=== PATIENT | female | born 1985 | race Caucasian/White ===

== ENCOUNTER 2017-02-27 12:26 | Emergency (ER) | payer MEDICAID ==
[~2017-02-27] VITALS: Ht 167.6 cm; Wt 49.9 kg
[~2017-02-27 12:26] MED LIST: ADVIL200 MG OR; ALBUTEROL2 PUFFS/17 IN; AMOXICILLIN 50500 MG PO; AMOXICOT500 MG PO; APAP/OXYCODONE1 TA1 PO; BENTYL10 M1 PO; BENTYL10 MG OR; CIPRO 500MG TA500 MG PO; CIPROFLOXACIN750 MG PO; CLINDAMYCIN HC300 MG PO; DIPROLENE AF0.05% TP; DOXYCYCLINE HY100 M1 PO; FIORICET 325 MG1 TAB PO; FLAGYL500 MG PO; FLEXERIL10 MG PO; FLEXERIL5 MG; GABAPENTIN 400400 M1 PO; HYDROCODONE 7.51 TAB PO; HYDROCODONE1 TABLET PO; HYDROXYZINE 25M25 MG PO; HYDROXYZINE PAM50 MG PO; IBU-8800 MG PO; IBU600 MG PO; IBUPROFEN800 MG PO; IMITREX100 MG PO; LEVAQUIN 750 M750 MG PO; LODINE200 MG PO; LORTAB 5/500 501 TAB PO; MACROBID 100MG100 MG PO; MOTRIN800 MG PO; NAPROSYN 500MG500 MG PO; NEURONTIN 300M300 MG PO; NORCO 325 MG-51 TAB PO; ONDANSETRON4 MG PO; PERCOCET 325 MG1 TA3 PO; PERCOCET 5/3251 EACH PO; PHENAZOPYRIDIN200 MG PO; PHENERGAN 25MG.25 M1 PO; PHENERGAN 25MG.25 MG PR; PREDNISONE 10MG10 MG PO; PREDNISONE 20MG20 MG PO; PREMARIN 0.60.625 MG PO; PREMARIN1.25 MG PO; PROPRANOLOL HCL20 MG PO; PYRIDIUM 200MG200 MG PO; REMERON15 MG PO; ROBAXIN 500 MG500 MG PO; ROBAXIN-750750 MG PO; ROXICET 325 MG-1 TAB PO; SEASONALE 30 MC1 TAB PO; SEASONIQUE1 TAB PO; SEROQUEL 100MG100 MG PO; SEROQUEL 25MG T25 MG PO; TAMIFLU75 MG PO; TRAMADOL 50MG T50 MG PO; ULTRAM 50 MG TA50 MG PO; ULTRAM50 MG PO; VICODIN 5/6 EACH/PAK PO; VICODIN 7.5/501 EACH PO; VOLTAREN75 MG PO; WELLBUTRIN 100100 M1 PO; XANAX 1MG TABLET1 MG PO; XANAX2 MG PO; ZITHROMAX Z-PA250 M1 PO; ZOFRAN 8MG TABLE8 MG PO; ZOFRAN ODT4 MG PO; ZOLOFT100 MG PO; [UNRECOGNIZED DRUG - OTHER]; [UNRECOGNIZED DRUG - OTHER] PO
--- OUTSIDE RECORDS SUMMARY | 2017-02-27 12:37 | External Medical Summary Rpt ---
Author Author , Organization [employer] Address Unknown Phone Unavailable Care Team Providers Care Process Artist Name Role Phone [facility] Unavailable Unavailable [place] [facility] [place] Yamile Sanabria MD, Unavailable Unavailable Yamile Pacheco MD, Venkat Unavailable Unavailable Dary Dickens MD, Unavailable Unavailable Shola Fraga MD, Unavailable Unavailable Camilla Fraga MD [facility] # Unavailable Unavailable [id number], [facility] # [id number] Purpose Continuity of Care Document - 11-17-2009 through 2016 Problems Code Diagnosis DOS Provider Status 300.00 300.00 03-27-2013 [place] ANXIETY [facility] STATE NOS [facility] 305.1 305.1 03-27-2013 [place] TOBACCO USE [facility] DISORDER Hospital 401.9 401.9 03-27-2013 [place] HYPERTENSIO [facility] N NOS [facility] 590.80 590.80 03-27-2013 [place] PYELONEPHRI [facility] Hospital V12.04 V12.04 03-27-2013 [facility] METHICILLIN RESISTANT STAPHYLOCOC CUS AUREUS V12.79 V12.79 03-27-2013 [place] PERSONAL [facility] HISTORY [facility] Hospital SPEC DIGESTIVE SYSTEM DISEASE V14.5 V14.5 03-27-2013 [place] HX-NARCOTIC [facility] ALLERGY [facility] V14.8 V14.8 03-27-2013 [facility]DRUG [facility] ALLERGY [facility] V58.69 V58.69 OT 03-27-2013 [place] [facility] ENT USE [facility] 789.04 789.04 12-12-2012 [place] ABDOMINAL [facility] PAIN, LEFT Hospital LOWER QUADRANT [id number] Acute [place] pancreatiti [facility] R51 HEADACHE Allergies, Adverse Reactions, Alerts Type Drug Allergy Adverse Reaction to Substance Substance Reaction Severity Sulfonamide Related I-HIVES Unknown Erythromycin UNKNOWN Unknown Codeine ANXIETY Unknown Medications Na ND Rx Da Fi Fi Am Da Di Ph RX Ph St me C No te ll ll ou ys ag ar # ys at rm s nt no ma ic us Or Da si cy ia de te s n re d DI 00 02 0 No PH 40 -1 EN 92 8- Lo HY [address] 03 14 er AM 1 IN Ac E ti 50 ve MG /M L SY RN G SO 00 02 0 No DI 40 -1 UM 97 8- Lo 98 20 ng CH 30 14 er LO 9 RI Ac DE ti ve 0. 9% SO [place] TI ON NE 55 02 0 No OC 39 -1 HL 00 8- Lo OR 07 20 ng PE 71 14 er RA 0 ZI Ac NE ti ve 10 MG /2 ML VL KE 00 02 0 No TO 40 -1 RO 93 8- Lo LA 79 20 ng C 50 14 er 30 1 Ac MG ti /M ve L AL Sa 63 02 1 No li 80 -1 ne 70 8- Lo 10 20 ng Fl 07 14 er us 5 h Ac 10 ti ML ve Sy ri ng e Sa 63 02 1 No li 80 -1 ne 70 8- Lo 10 20 ng Fl 07 14 er us 5 h Ac 10 ti ML ve Sy ri ng e Sa 63 12 0 No li 80 -0 ne 70 1- Lo 10 20 ng Fl 07 13 er us 5 h Ac 10 ti ML ve Sy ri ng e Sa 63 12 0 No li 80 -0 ne 70 1- Lo 10 20 ng Fl 07 13 er us 5 h Ac 10 ti ML ve Sy ri ng e TR 00 12 0 No AM 09 -0 AD 30 1- Lo OL 05 20 ng 80 13 er 50 1H MG Ac ti TA ve BL ET TA KE HO ME TR 00 12 0 No AM 09 -0 AD 30 1- Lo OL 05 20 ng 80 13 er 50 1H MG Ac ti TA ve BL ET TA KE HO ME LO 00 12 0 No RA 64 -0 ZE 16 1- Lo PA 04 20 ng M 82 13 er 2 5 MG Ac /M ti L ve AL KE 00 12 0 No TO 40 -0 RO 93 1- Lo LA 79 20 ng C 50 13 er 30 1 Ac MG ti /M ve L AL HY [address] 40 -0 OC 60 1- Lo OD 36 20 ng ON 56 13 er -A 2 CE Ac TA ti CA ve NO PH EN 5- 32 5 HY [address] 40 -1 OM 91 2- Lo OR 31 20 ng PH 23 13 er ON 0 E Ac 2 ti MG ve /M L CA RP UJ CT NI 00 08 2 No CO 06 -1 TI 75 1- Lo NE 12 20 ng 61 13 er 21 4 Ac MG ti /2 ve 4H R PA TC H HY [address] 40 -1 OM 91 0- Lo OR 31 20 ng PH 23 13 er ON 0 E Ac 2 ti MG ve /M L CA RP UJ CT NI 00 08 0 No CO 06 -1 TI 75 0- Lo NE 12 20 ng 61 13 er 21 4 Ac MG ti /2 ve 4H R PA TC H Mo 00 08 0 No rp 40 -0 hi 91 9- Lo ne 25 20 ng 83 13 er 4M 0 G/ Ac Ml ti ve Sy ri ng e Mo 00 08 0 No rp 40 -0 hi 91 9- Lo ne 25 20 ng 83 13 er 4M 0 G/ Ac Ml ti ve Sy ri ng e HY [address] 40 -0 OM 91 9- Lo OR 31 20 ng PH 23 13 er ON 0 E Ac 2 ti MG ve /M L CA RP UJ CT SO 00 08 4 No DI 40 -0 UM 97 9- Lo 98 20 ng CH 30 13 er LO 9 RI Ac DE ti ve 0. 9% SO [place] TI ON NE 00 08 4 No OM 64 -0 ET 11 9- Lo URBINA 49 20 ng ZI 53 13 er NE 5 Ac 25 ti ve MG /M L AM PU L IN 00 08 4 No VA 00 -0 NZ 63 9- Lo 1 84 20 ng 57 13 er GM 1 Ac AD ti D- ve VA NT AG E AL GA [address] 27 -0 RO 00 2- Lo GR 44 20 ng AF 53 13 er IN 5 Ac 66 ti -1 ve 0 SO [place] TI ON LA [address] 40 -0 AT 97 2- Lo ED 95 20 ng 30 13 er RI 9 NG Ac ER ti S ve IN JE CT IO N HY [address] 40 -0 OC 60 2- Lo OD 36 20 ng ON 56 13 er -A 2 CE Ac TA ti CA ve NO PH EN 5- 32 5 RA 63 08 0 No D- 80 -0 SA 70 2- Lo LI 10 20 ng NE 07 13 er 5A FL Ac US ti H ve 10 ML SY RI NG E RA 63 08 0 No D- 80 -0 SA 70 2- Lo LI 10 20 ng NE 07 13 er 5A FL Ac US ti H ve 10 ML SY RI NG E RA 00 08 0 No D- 27 -0 IS 01 2- Lo OV 31 20 ng UE 63 13 er -3 5A 70 Ac ; ti 10 ve 0M L RA 00 08 0 No D- 27 -0 IS 01 2- Lo OV 31 20 ng UE 63 13 er -3 5A 70 Ac ; ti 10 ve 0M L LE 68 08 0 No VO 08 -0 FL 40 2- Lo OX 48 20 ng AC 30 13 er IN 1 Ac 75 ti 0 ve MG TA BL ET Mo 00 08 0 No rp 40 -0 hi 91 2- Lo ne 26 20 ng 06 13 er 8M 9 G/ Ac Ml ti ve Sy ri ng e Mo 00 08 0 No rp 40 -0 hi 91 2- Lo ne 26 20 ng 06 13 er 8M 9 G/ Ac Ml ti ve Sy ri ng e Mo 00 08 0 No rp 40 -0 hi 91 2- Lo ne 26 20 ng 06 13 er 8M 9 G/ Ac Ml ti ve Sy ri ng e Mo 00 08 0 No rp 40 -0 hi 91 2- Lo ne 26 20 ng 06 13 er 8M 9 G/ Ac Ml ti ve Sy ri ng e ON 00 08 0 No DA 64 -0 NS 16 2- Lo ET 08 20 ng RO 02 13 er N 5 HC Ac L ti 4 ve MG /2 ML AL Sa 63 08 0 No li 80 -0 ne 70 2- Lo 10 20 ng Fl 07 13 er us 5 h Ac 10 ti ML ve Sy ri ng e Sa 63 08 0 No li 80 -0 ne 70 2- Lo 10 20 ng Fl 07 13 er us 5 h Ac 10 ti ML ve Sy ri ng e Sa 63 04 0 No li 80 -1 ne 70 9- Lo 10 20 ng Fl 07 13 er us 5 h Ac 10 ti ML ve Sy ri ng e Sa 63 04 0 No li 80 -1 ne 70 9- Lo 10 20 ng Fl 07 13 er us 5 h Ac 10 ti ML ve Sy ri ng e HY [address] 07 -1 OC 90 9- Lo OD 78 20 ng ON 09 13 er E/ 9H AP Ac AP ti ve 5/ 50 0M G TA KE HY [address] 07 -1 OC 90 9- Lo OD 78 20 ng ON 09 13 er E/ 9H AP Ac AP ti ve 5/ 50 0M G TA KE ON 00 04 0 No DA 64 -1 NS 16 9- Lo ET 08 20 ng RO 02 13 er N 5 HC Ac L ti 4 ve MG /2 ML AL SO 00 04 0 No DI 40 -1 UM 97 9- Lo 98 20 ng CH 30 13 er LO 9 RI Ac DE ti ve 0. 9% SO [place] TI ON SO 00 02 0 No DI 40 -2 UM 97 2- Lo 98 20 ng CH 30 13 er LO 9 RI Ac DE ti ve 0. 9% SO [place] TI ON ON 00 02 0 No DA 64 -2 NS 16 2- Lo ET 08 20 ng RO 02 13 er N 5 HC Ac L ti 4 ve MG /2 ML AL Sa 63 02 0 No li 80 -2 ne 70 2- Lo 10 20 ng Fl 07 13 er us 5 h Ac 10 ti ML ve Sy ri ng e GA 16 10 10 0 90 30 EA 24 CA Ac BA 71 -3 -[address] 72 CH ti PE 40 1- 1- 00 SI 55 EL ve NT 66 20 20 DE MA IN 30 11 11 N 2 PH ANA MARÍA 40 AR HN 0 MA D MG CY CA OF PS UL CY E NT HI AN A NE 16 10 10 0 90 30 EA 24 CA Ac OP 71 -3 -[address] 72 CH ti RA 40 1- 1- 00 SI 56 EL ve NO 02 20 20 DE MA LO 10 11 11 N L 4 PH ANA MARÍA 10 AR HN MA D MG CY TA OF BL ET CY NT HI AN A PH 65 10 10 0 9. 3 EA 24 CA Ac EN 16 -3 -[address] 72 CH ti AZ 20 1- 1- 0 SI 57 EL ve OP 52 20 20 DE MA YR 01 11 11 N ID 0 PH ANA MARÍA IN AR HN E MA D 20 CY 0 MG OF TA CY B NT HI AN A SE 00 10 10 0 30 30 EA 24 CA Ac RO 31 -2 -[address] 72 CH ti QU 00 8- 1- 00 SI 54 EL ve EL 28 20 20 DE MA 36 11 11 N XR 0 PH ANA MARÍA AR HN 30 MA D 0 CY MG OF TA BL CY ET NT HI AN A CA 00 10 10 0 30 30 EA 24 GH Ac RT 09 -2 -[address] 59 AN ti AZ 37 0- 0- 00 SI 46 TA ve AP 20 20 20 DE IN 65 11 11 RA E 6 PH ME 15 AR SH MA MG CY TA OF BL ET CY NT HI AN A BU 00 09 10 5 60 15 EA 23 AR Ac TA 60 -0 -[address] 95 NO ti LB 32 3- 8- 00 SI 61 LD ve -A 54 20 20 DE CE 42 11 11 RI TA 8 PH CH CA AR AR N- MA D CA CY W FF OF 50 -3 CY 25 NT -4 HI 0 AN A GA 60 10 10 5 90 30 EA 24 AR Ac BA 50 -0 -[address] 44 NO ti PE 52 9- 9- 00 SI 05 LD ve NT 55 20 20 DE IN 10 11 11 RI 5 PH CH 60 AR AR 0 MA D MG CY W TA OF BL ET CY NT HI AN A BU 00 08 10 5 60 30 EA 23 CL Ac NE 18 -3 -[address] 89 AR ti OP 50 0- 7- 00 SI 06 KE ve IO 41 20 20 DE N 50 11 11 DE HC 5 PH RE L AR K SR MA J CY 15 0 OF MG CY TA NT BL HI ET AN A GA 16 09 09 1 90 30 EA 24 AR Ac BA 71 -2 -[address] 28 NO ti PE 40 8- 8- 00 SI 94 LD ve NT 66 20 20 DE IN 20 11 11 RI 1 PH CH 30 AR AR 0 MA D MG CY W CA OF PS UL CY E NT HI AN A AM 52 03 09 3 91 91 EA 21 CL Ac ET 54 -2 -[address] 88 AR ti HI 40 8- 3- 00 SI 15 KE ve A 26 20 20 DE 0. 82 11 11 DE 15 9 PH RE -0 AR K .0 MA J 3- CY 0. 01 OF MG CY NT TA HI B AN A BU 00 09 09 5 60 15 EA 23 AR Ac TA 60 -0 -[address] 95 NO ti LB 32 3- 3- 00 SI 61 LD ve -A 54 20 20 DE CE 42 11 11 RI TA 8 PH CH CA AR AR N- MA D CA CY W FF OF 50 -3 CY 25 NT -4 HI 0 AN A EN 60 09 09 0 60 15 EA 24 AR Ac DO 95 -2 -[address] 17 NO ti CE 10 0- 0- 00 SI 00 LD ve T 71 20 20 DE 10 27 11 11 RI -3 0 PH CH 25 AR AR MA D MG CY W TA OF BL ET CY NT HI AN A DI 00 09 09 0 14 7 EA 24 GA Ac CL 78 -1 -[address] 13 IN ti OF 11 8 8- 00 SI 79 EY ve EN 78 20 20 DE AC 90 11 11 CA 1 PH CH SO AR AE D MA L EC CY S 75 OF MG CY NT TA HI B AN A CY 00 09 09 0 14 7 EA 24 GA Ac CL 37 -1 -[address] 13 IN ti OB 80 8- 8- 00 SI 78 EY ve EN 75 20 20 DE ZA 11 11 11 CA NE 0 PH CH IN AR AE E MA L 10 CY S MG OF TA CY BL NT ET HI AN A BU 00 09 09 5 60 15 EA 23 AR Ac TA 60 -0 -[address] 95 NO ti LB 32 3- 3- 00 SI 61 LD ve -A 54 20 20 DE CE 42 11 11 RI TA 8 PH CH CA AR AR N- MA D CA CY W FF OF 50 -3 CY 25 NT -4 HI 0 AN A AZ 00 09 09 0 [address] Ac IT 78 -0 -[address] 92 EP ti HR 11 1- 1- 0 SI 68 HE ve OM 49 20 20 DE NS YC 66 11 11 IN 8 PH KE AR 25 MA N 0 CY C MG OF TA BL CY ET NT HI AN A BU 00 08 08 5 60 30 EA 23 CL Ac NE 18 -3 -[address] 89 AR ti OP 50 0- 0- 00 SI 06 KE ve IO 41 20 20 DE N 50 11 11 DE HC 5 PH RE L AR K SR MA J CY 15 0 OF MG CY TA NT BL HI ET AN A NE 00 08 08 1 12 3 EA 23 CL Ac OM 78 -2 -[address] 78 AR ti ET 11 3- 3- 00 SI 22 KE ve URBINA 83 20 20 DE ZI 01 11 11 DE NE 0 PH RE AR K 25 MA J CY MG OF TA BL CY ET NT HI AN A PH 65 08 08 1 9. 3 EA 23 CL Ac EN 16 -2 -[address] 75 AR ti AZ 20 1- 1- 0 SI 02 KE ve OP 52 20 20 DE YR 01 11 11 DE ID 0 PH RE IN AR K E MA J 20 CY 0 MG OF TA CY B NT HI AN A CI 16 08 08 0 10 5 EA 23 CL Ac NE 71 -2 -[address] 75 AR ti OF 40 1- 1- 00 SI 01 KE ve LO 65 20 20 DE XA 20 11 11 DE CI 4 PH RE N AR K HC MA J L CY 50 0 OF MG CY TA NT B HI AN A CI 16 08 08 0 10 5 EA 23 WE Ac NE 71 -1 -[address] 69 HR ti OF 40 7- 7- 00 SI 67 MA ve LO 65 20 20 DE N XA 10 11 11 II CI 2 PH I N AR WI HC MA LL L CY IA 25 M 0 OF E MG CY TA NT B HI AN A NE 00 08 08 0 12 3 EA 23 WE Ac OM 78 -1 -[address] 69 HR ti ET 11 7- 7- 00 SI 68 MA ve URBINA 83 20 20 DE N ZI 01 11 11 II NE 0 PH I AR WI 25 MA LL CY IA MG M OF E TA BL CY ET NT HI AN A BU 00 05 08 5 60 15 EA 22 AR Ac TA 60 -0 -[address] 37 NO ti LB 32 3- 4- 00 SI 58 LD ve -A 54 20 20 DE CE 42 11 11 RI TA 8 PH CH CA AR AR N- MA D CA CY W FF OF 50 -3 CY 25 NT -4 HI 0 AN A 59 07 08 10 15 30 EA 23 CL Ac 76 -0 -[address] 22 AR ti 24 8- 0- 00 SI 37 KE ve 80 20 20 DE 10 11 11 DE 1 PH RE AR K MA J CY OF CY NT HI AN A BU 00 05 07 5 60 15 EA 22 AR Ac TA 60 -0 -[address] 37 NO ti LB 32 3- 8- 00 SI 58 LD ve -A 54 20 20 DE CE 42 11 11 RI TA 8 PH CH CA AR AR N- MA D CA CY W FF OF 50 -3 CY 25 NT -4 HI 0 AN A TR 65 07 07 0 70 23 EA 23 MA Ac AM 16 -2 -[address] 43 BR ti AD 20 6- 6- 00 SI 52 Y ve OL 62 20 20 DE CH 71 11 11 AR HC 1 PH LT L AR ON 50 MA CY MG OF TA BL CY ET NT HI AN A CY 00 07 07 0 15 5 EA 23 TA Ac CL 37 -1 -[address] 35 YL ti OB 80 9- 9- 00 SI 11 OR ve EN 75 20 20 DE ZA 11 11 11 RO NE 0 PH GE IN AR R E MA T 10 CY MG OF TA CY BL NT ET HI AN A 59 07 07 10 15 30 EA 23 CL Ac 76 -0 -[address] 22 AR ti 24 8- 8- 00 SI 37 KE ve 80 20 20 DE 10 11 11 DE 1 PH RE AR K MA J CY OF CY NT HI AN A BU 00 05 07 5 60 15 EA 22 AR Ac TA 60 -0 -[address] 37 NO ti LB 32 3- 7- 00 SI 58 LD ve -A 54 20 20 DE CE 42 11 11 RI TA 8 PH CH CA AR AR N- MA D CA CY W FF OF 50 -3 CY 25 NT -4 HI 0 AN A CY 00 07 07 0 15 5 EA 23 SO Ac CL 37 -0 -[address] 16 KA ti OB 80 2- 2- 00 SI 72 N ve EN 75 20 20 DE BA ZA 11 11 11 BA NE 0 PH TU IN AR ND E MA E 10 CY O MG OF TA CY BL NT ET HI AN A SE 51 03 07 3 91 91 EA 21 CL Ac 28 -2 -[address] 88 AR ti ON 50 8- 1- 00 SI 15 KE ve IQ 08 20 20 DE UE 78 11 11 DE 7 PH RE 0. AR K 15 MA J -0 CY .0 3- OF 0. 01 CY NT TA HI B AN A BU 00 05 06 5 60 15 EA 22 AR Ac TA 60 -0 -[address] 37 NO ti LB 32 3- 6- 00 SI 58 LD ve -A 54 20 20 DE CE 42 11 11 RI TA 8 PH CH CA AR AR N- MA D CA CY W FF OF 50 -3 CY 25 NT -4 HI 0 AN A 59 05 06 1 15 30 EA 22 CL Ac 76 -0 -[address] 41 AR ti 24 6- 2- 00 SI 75 KE ve 80 20 20 DE 10 11 11 DE 1 PH RE AR K MA J CY OF CY NT HI AN A BU 00 05 06 5 60 15 EA 22 AR Ac TA 60 -0 -[address] 37 NO ti LB 32 3- 1- 00 SI 58 LD ve -A 54 20 20 DE CE 42 11 11 RI TA 8 PH CH CA AR AR N- MA D CA CY W FF OF 50 -3 CY 25 NT -4 HI 0 AN A AC 00 05 05 0 12 3 EA 22 URBINA Ac ET 09 -2 -[address] 63 RP ti AM 30 1- 1- 00 SI 11 EL ve IN 15 20 20 DE OP 00 11 11 GE HE 1 PH RA N- AR LD CO MA R D CY #3 OF TA BL CY ET NT HI AN A PH 65 05 05 0 6. 2 EA 22 WE Ac EN 16 -1 -[address] 60 HR ti AZ 20 9- 9- 0 SI 74 MA ve OP 52 20 20 DE N YR 01 11 11 II ID 0 PH I IN AR WI E MA LL 20 CY IA 0 M MG OF E TA CY B NT HI AN A NI 47 05 05 0 14 7 EA 22 WE Ac TR 78 -1 -[address] 60 HR ti OF 10 9- 9- 00 SI 70 MA ve UR 30 20 20 DE N AN 30 11 11 II TO 1 PH I IN AR WI MA LL MO CY IA NO M -M OF E CR CY 10 NT 0 HI MG AN A 59 05 05 1 15 30 EA 22 CL Ac 76 -0 -[address] 41 AR ti 24 6- 6- 00 SI 75 KE ve 80 20 20 DE 10 11 11 DE 1 PH RE AR K MA J CY OF CY NT HI AN A AM 00 05 05 0 [address] Ac OX 78 -0 -[address] 40 EP ti IC 12 5- 5- 00 SI 12 HE ve IL 61 20 20 DE NS LI 30 11 11 N 5 PH KE 50 AR 0 MA N MG CY C CA OF PS UL CY E NT HI AN A BU 00 05 05 5 60 15 EA 22 AR Ac TA 60 -0 -[address] 37 NO ti LB 32 3- 3- 00 SI 58 LD ve -A 54 20 20 DE CE 42 11 11 RI TA 8 PH CH CA AR AR N- MA D CA CY W FF OF 50 -3 CY 25 NT -4 HI 0 AN A AM 00 04 04 0 [address] Ac OX 78 -0 -[address] 01 EP ti IC 12 6- 6- 00 SI 14 HE ve IL 61 20 20 DE NS LI 30 11 11 N 5 PH KE 50 AR 0 MA N MG CY C CA OF PS UL CY E NT HI AN A NE 00 03 03 0 20 5 EA 21 CL Ac OM 78 -2 -[address] 87 AR ti ET 11 8- 8- 00 SI 31 KE ve URBINA 83 20 20 DE ZI 01 11 11 DE NE 0 PH RE AR K 25 MA J CY MG OF TA BL CY ET NT HI AN A SE 51 03 03 3 91 91 EA 21 CL Ac 28 -2 -[address] 88 AR ti ON 50 8 8 00 SI 15 KE ve IQ 08 20 20 DE UE 78 11 11 DE 7 PH RE 0. AR K 15 MA J -0 CY .0 3- OF 0. 01 CY NT TA HI B AN A NE 68 03 03 0 12 2 WA 71 GR Ac OM 38 -1 -2 .0 L- 12 AY ti ET 20 3- 6- 00 MA 79 ve URBINA 04 20 20 RT 7 RO ZI 10 11 11 BE NE 1 PH RT AR B 25 MA CY MG # TA 10 BL 05 ET 91 00 03 03 0 23 6 EA 21 CIARA Ac 59 -2 -[address] 81 UL ti 10 3- 3- 00 SI 58 AN ve 34 20 20 DE GE 90 11 11 R 1 PH BE AR RN MA AR CY D R OF CY NT HI AN A NE 00 03 03 1 20 5 EA 21 CL Ac OM 78 -0 -[address] 48 AR ti ET 11 1- 6 00 SI 16 KE ve URBINA 83 20 20 DE ZI 01 11 11 DE NE 0 PH RE AR K 25 MA J CY MG OF TA BL CY ET NT HI AN A CY 00 03 03 1 60 20 EA 21 AR Ac CL 37 -1 -[address] 68 NO ti OB 80 4- 4- 00 SI 43 LD ve EN 75 20 20 DE ZA 11 11 11 RI NE 0 PH CH IN AR AR E MA D 10 CY W MG OF TA CY BL NT ET HI AN A CE 00 03 03 0 21 7 EA 21 WR Ac PH 09 -0 -[address] 62 IG ti AL 33 9 9- 00 SI 82 HT ve EX 14 20 20 DE IN 70 11 11 TI 5 PH FF 50 AR AN 0 MA Y MG CY N CA OF PS UL CY E NT HI AN A OX 00 03 03 0 16 2 EA 21 AI Ac YC 40 -0 -[address] 62 TC ti OD 60 9- 9- 00 SI 87 HI ve ON 55 20 20 DE SO E 20 11 11 N HC 1 PH SA L AR MA 5 MA NT MG CY URBINA H TA OF BL ET CY NT HI AN A SM 49 03 03 1 44 7 EA 21 WR Ac 34 -0 -[address] 62 IG ti SA 80 9- 9- 00 SI 86 HT ve LI 35 20 20 DE NE 62 11 11 TI 5 PH FF 0. AR AN 65 MA Y % CY N NA SA OF L SP CY RA NT Y HI AN A 00 03 03 0 30 8 EA 21 WR Ac 05 -0 -[address] 62 IG ti 44 9- 9- 00 SI 85 HT ve 65 20 20 DE 02 11 11 TI 9 PH FF AR AN MA Y CY N OF CY NT HI AN A 48 03 03 2 3. 4 EA 21 WR Ac 10 -0 -[address] 62 IG ti 20 9- 9- 0 SI 83 HT ve 00 20 20 DE 73 11 11 TI 5 PH FF AR AN MA Y CY N OF CY NT HI AN A BU 00 01 03 2 60 15 EA 20 AR Ac TA 60 -2 -[address] 94 NO ti LB 32 5- 7- 00 SI 56 LD ve -A 54 20 20 DE CE 42 11 11 RI TA 8 PH CH CA AR AR N- MA D CA CY W FF OF 50 -3 CY 25 NT -4 HI 0 AN A NE 00 03 03 1 20 5 EA 21 CL Ac OM 78 -0 -[address] 48 AR ti ET 11 1- 1- 00 SI 16 KE ve URBINA 83 20 20 DE ZI 01 11 11 DE NE 0 PH RE AR K 25 MA J CY MG OF TA BL CY ET NT HI AN A 00 02 02 0 30 7 EA 21 CL Ac 59 -2 -[address] 43 AR ti 10 8- 8- 00 SI 54 KE ve 38 20 20 DE 50 11 11 DE 1 PH RE AR K MA J CY OF CY NT HI AN A NI 00 02 02 0 20 10 EA 21 GR Ac TR 18 -2 -[address] 36 AY ti OF 50 3- 3- 00 SI 81 ve UR 12 20 20 DE RO AN 20 11 11 BE TO 1 PH RT IN AR B MA MO CY NO -M OF CR CY 10 NT 0 HI MG AN A EN 60 02 02 0 12 3 EA 21 GR Ac DO 95 -2 -[address] 36 AY ti CE 10 3- 3- 00 SI 80 ve T 70 20 20 DE RO 7. 07 11 11 BE 5- 0 PH RT 32 AR B 5 MA MG CY TA OF BL ET CY NT HI AN A PH 65 02 02 0 6. 3 EA 21 GR Ac EN 16 -2 -[address] 36 AY ti AZ 20 3- 3- 0 SI 82 ve OP 52 20 20 DE RO YR 01 11 11 BE ID 0 PH RT IN AR B E MA 20 CY 0 MG OF TA CY B NT HI AN A NI 00 02 02 0 28 28 EA 21 CL Ac CO 06 -2 -[address] 33 AR ti TI 75 1- 1- 00 SI 26 KE ve NE 12 20 20 DE 51 11 11 DE 14 4 PH RE AR K MG MA J /2 CY 4H R OF PA TC CY H NT HI AN A 00 02 02 0 30 8 EA 21 CL Ac 59 -2 -[address] 33 AR ti 10 1- 1- 00 SI 25 KE ve 38 20 20 DE 50 11 11 DE 1 PH RE AR K MA J CY OF CY NT HI AN A BU 00 01 02 2 60 15 EA 20 AR Ac TA 60 -2 -[address] 94 NO ti LB 32 5- 7- 00 SI 56 LD ve -A 54 20 20 DE CE 42 11 11 RI TA 8 PH CH CA AR AR N- MA D CA CY W FF OF 50 -3 CY 25 NT -4 HI 0 AN A NA 00 01 01 1 60 30 EA 20 CL Ac NE 09 -2 -[address] 97 AR ti OX 30 7- 7- 00 SI 65 KE ve EN 14 20 20 DE 90 11 11 DE 50 1 PH RE 0 AR K MG MA J CY TA BL OF ET CY NT HI AN A 00 01 01 0 30 8 EA 20 CL Ac 59 -2 -[address] 97 AR ti 10 7- 7- 00 SI 64 KE ve 54 20 20 DE 00 11 11 DE 1 PH RE AR K MA J CY OF CY NT HI AN A 60 01 01 1 24 6 EA 20 AR Ac 25 -2 -[address] 94 NO ti 80 5- 5- 00 SI 55 LD ve 23 20 20 0 DE 91 11 11 RI 6 PH CH AR AR MA D CY W OF CY NT HI AN A BU 00 01 01 2 60 15 EA 20 AR Ac TA 60 -2 -[address] 94 NO ti LB 32 5- 5- 00 SI 56 LD ve -A 54 20 20 DE CE 42 11 11 RI TA 8 PH CH CA AR AR N- MA D CA CY W FF OF 50 -3 CY 25 NT -4 HI 0 AN A AZ 00 01 01 1 6. 5 EA 20 AR Ac IT 09 -2 -[address] 94 NO ti HR 37 5- 5- 0 SI 54 LD ve OM 14 20 20 DE YC 61 11 11 RI IN 8 PH CH AR AR 25 MA D 0 CY W MG OF TA BL CY ET NT HI AN A 60 06 12 1 24 6 EA 17 AR Ac 25 -0 -[address] 81 NO ti 80 1- 4- 00 SI 50 LD ve 23 20 20 0 DE 91 10 10 RI 6 PH CH AR AR MA D CY W OF CY NT HI AN A TR 65 12 12 0 42 7 EA 20 CL Ac AM 16 -0 -[address] 32 AR ti AD 20 9- 9- 00 SI 67 KE ve OL 62 20 20 DE 71 10 10 DE HC 1 PH RE L AR K 50 MA J CY MG OF TA BL CY ET NT HI AN A 59 10 10 5 15 30 EA 19 AR Ac 76 -0 -[address] 41 NO ti 24 5- 5- 00 SI 43 LD ve 80 20 20 DE 20 10 10 RI 5 PH CH AR AR MA D CY W OF CY NT HI AN A CL 63 09 09 1 30 10 EA 19 AR Ac IN 30 -1 -[address] 07 NO ti DA 40 0- 0- 00 SI 76 LD ve MY 69 20 20 DE CI 30 10 10 RI N 1 PH CH HC AR AR L MA D 30 CY W 0 MG OF CA CY PS NT UL HI E AN A NE 00 09 09 1 30 7 EA 19 AR Ac OM 78 -1 -[address] 07 NO ti ET 11 0- 0- 00 SI 77 LD ve URBINA 83 20 20 DE ZI 01 10 10 RI NE 0 PH CH AR AR 25 MA D CY W MG OF TA BL CY ET NT HI AN A DO 53 06 06 1 20 10 EA 17 AR Ac XY 48 -0 -[address] 81 NO ti CY 90 1- 1- 00 SI 48 LD ve CL 11 20 20 DE IN 90 10 10 RI E 5 PH CH HY AR AR CL MA D AT CY W E 10 OF 0 MG CY NT CA HI P AN A LI 00 06 06 1 10 2 EA 17 AR Ac DO 60 -0 -[address] 81 NO ti CA 31 1- 1- 00 SI 49 LD ve IN 39 20 20 0 DE E 36 10 10 RI 2% 4 PH CH AR AR MA D SC CY W OU S OF SO LN CY NT HI AN A 60 06 06 1 24 6 EA 17 AR Ac 25 -0 -[address] 81 NO ti 80 1- 1- 00 SI 50 LD ve 23 20 20 0 DE 91 10 10 RI 6 PH CH AR AR MA D CY W OF CY NT HI AN A LI 00 05 05 1 35 5 EA 17 CL Ac DO 16 -1 -[address] 53 AR ti CA 80 0- 0- 39 SI 23 KE ve IN 20 20 20 DE E 43 10 10 DE 5% 7 PH RE AR K OI MA J NT CY ME NT OF CY NT HI AN A TR 65 02 03 2 12 30 EA 16 WH Ac AM 16 -2 -[address] 50 EE ti AD 20 4- 5- 00 SI 76 LE ve OL 62 20 20 0 DE R 71 10 10 GR HC 1 PH EG L AR R 50 MA CY MG OF TA BL CY ET NT HI AN A Vital Signs 10-14-2013 00:44 Name Value Interpretat Reference Comment ion Range Body 97.7 [degF] Temperature BP 59 mm[Hg] Diastolic BP Systolic 85 mm[Hg] Heart 54 /min Rate/Pulse O2% 96 % Respiratory 16 /min Rate 10-13-2013 22:53 Name Value Interpretat Reference Comment ion Range BP 64 mm[Hg] Diastolic BP Systolic 98 mm[Hg] 10-13-2013 21:59 Name Value Interpretat Reference Comment ion Range Heart 84 /min Rate/Pulse O2% 99 % Respiratory 22 /min Rate 07-26-2013 20:59 Name Value Interpretat Reference Comment ion Range Body 98.2 [degF] Temperature BP 65 mm[Hg] Diastolic BP Systolic 102 mm[Hg] Heart 64 /min Rate/Pulse O2% 97 % Respiratory 20 /min Rate 07-26-2013 20:51 Name Value Interpretat Reference Comment ion Range BP 73 mm[Hg] Diastolic BP Systolic 107 mm[Hg] Heart 77 /min Rate/Pulse O2% 100 % Respiratory 20 /min Rate 04-07-2013 11:20 Name Value Interpretat Reference Comment ion Range Body 98.1 [degF] Temperature BP 70 mm[Hg] Diastolic BP Systolic 103 mm[Hg] Heart 57 /min Rate/Pulse Respiratory 16 /min Rate 04-07-2013 08:00 Name Value Interpretat Reference Comment ion Range Body 98.1 [degF] Temperature BP 70 mm[Hg] Diastolic BP Systolic 103 mm[Hg] Heart 57 /min Rate/Pulse O2% 99 % Respiratory 16 /min Rate 04-06-2013 16:37 Name Value Interpretat Reference Comment ion Range Weight 56.246 kg Measured 04-03-2013 15:54 Name Value Interpretat Reference Comment ion Range O2% 96 % 04-03-2013 14:50 Name Value Interpretat Reference Comment ion Range Body 99.1 [degF] Temperature BP 75 mm[Hg] Diastolic BP Systolic 113 mm[Hg] Heart 95 /min Rate/Pulse Height 167.64 cm Respiratory 22 /min Rate Weight 124 [lb_av] Measured 03-27-2013 14:29 Name Value Interpretat Reference Comment ion Range Body 97.9 [degF] Temperature BP 64 mm[Hg] Diastolic BP Systolic 107 mm[Hg] Heart 57 /min Rate/Pulse O2% 97 % Respiratory 16 /min Rate 03-27-2013 10:47 Name Value Interpretat Reference Comment ion Range BP 58 mm[Hg] Diastolic BP Systolic 110 mm[Hg] Heart 74 /min Rate/Pulse O2% 99 % Respiratory 16 /min Rate 12-12-2012 22:59 Name Value Interpretat Reference Comment ion Range Body 98.0 [degF] Temperature BP 68 mm[Hg] Diastolic BP Systolic 96 mm[Hg] Heart 62 /min Rate/Pulse O2% 99 % Respiratory 18 /min Rate 12-12-2012 20:40 Name Value Interpretat Reference Comment ion Range Body 98.6 [degF] Temperature BP 53 mm[Hg] Diastolic BP Systolic 93 mm[Hg] Heart 85 /min Rate/Pulse O2% 98 % Respiratory 18 /min Rate 10-17-2012 16:25 Name Value Interpretat Reference Comment ion Range Body 98.7 [degF] Temperature BP 64 mm[Hg] Diastolic BP Systolic 101 mm[Hg] Heart 77 /min Rate/Pulse O2% 97 % Respiratory 18 /min Rate 10-17-2012 15:18 Name Value Interpretat Reference Comment ion Range BP 68 mm[Hg] Diastolic BP Systolic 98 mm[Hg] Heart 92 /min Rate/Pulse O2% 96 % Respiratory 18 /min Rate Results Labs Lab Lab Date Result Refere Interp Status Commen Order Detail nces retati t Range on COMPREHENSIVE METABOLIC PANEL (04-06-2013 14:10) Glucose 80 74-106 complet 013 mg/dL ed Bld-mCn 14:10 c BUN 8 mg/dL 7-18 complet Bld-mCn 013 ed c 14:10 Creat 08-12-2 0.8 0.6-1.0 complet SerPl-m 013 mg/dL ed Cnc 14:10 ESTIMAT 91 50-200 complet ED 013 ML/MIN ed CREATIN 14:10 KASSIDY CLEARAN CE GFR 84 59- complet (ESTIMA 013 ML/MIN ed YAO) 14:10 Sodium 143 136-145 complet SerPl-s 013 mmoL/L ed Cnc 14:10 Potassi 4.3 3.5-5.1 complet um 013 mmoL/L ed SerPl-s 14:10 Cnc Chlorid 106 98-107 complet e 013 mmoL/L ed SerPl-s 14:10 Cnc CO2 30 21.0-32 complet SerPl-s 013 mmoL/L .0 ed Cnc 14:10 Calcium 8.4 8.5-10. complet 013 mg/dL 1 ed SerPl-m 14:10 Cnc Prot 6.4 6.4-8.2 complet SerPl-m 013 gm/dL ed Cnc 14:10 Albumin 3.5 3.4-5.0 complet 013 gm/dL ed SerPl-m 14:10 Cnc Globuli 2.9 1.3-3.2 complet n 013 gm/dL ed Ser-mCn 14:10 c Albumin 1.2 UNK 1.1-1.8 complet /Glob 013 ed SerPl-m 14:10 Rto Bilirub 0.3 0.2-1.0 complet 013 mg/dL ed SerPl-m 14:10 Cnc AST 50 U/L 15-37 complet SerPl-c 013 ed Cnc 14:10 ALT 62 U/L 30-65 complet SerPl-c 013 ed Cnc 14:10 ALP 121 U/L 50-136 complet SerPl-c 013 ed Cnc 14:10 CBC with AUTO DIFF (04-06-2013 14:10) WBC # 12-2 6.3 4.8-10. complet Bld 013 K/MM3 8 ed Auto 14:10 RBC # 08-12-2 4.04 4.2-5.4 complet Bld 013 M/mm3 ed Auto 14:10 Hgb 08-12-2 12.0 12.2-16 complet Bld-mCn 013 g/dL .2 ed c 14:10 Hct Fr 08-12-2 36.5 % 37.0-47 complet Bld 013 .0 ed 14:10 MCV RBC 08-12-2 90.2 fl 82.2-97 complet 013 .8 ed 14:10 MCH RBC -12-2 29.7 pg 27-31.2 complet Qn 013 ed Auto 14:10 MEAN -12-2 33.0 31.8-35 complet CORPUSC 013 g/dl .4 ed ULAR 14:10 HGB CONC RDW RBC -12-2 15.1 % 11.5-17 complet Auto 013 .5 ed 14:10 Platele -12-2 217 142-424 complet t Bld 013 K/mm3 ed Ql 14:10 Manual MEAN 04-06-2 7.1 fl 7.4-10. complet PLATELE 013 4 ed T 14:10 VOLUME Granulo -12-2 50.4 % 37.0-80 complet cytes 013 .0 ed Fr Bld 14:10 Auto LYMPH % 08-12-2 42.8 % 10-50.0 complet 013 ed 14:10 Monocyt -12-2 4.3 % 1.7-9.3 complet es Fr 013 ed Bld 14:10 Auto Eosinop 08-12-2 2.3 % 0.1-12. complet hil Fr 013 0 ed Bld 14:10 Auto Basophi 08-12-2 0.3 % 0.1-2.0 complet ls Fr 013 ed Bld 14:10 Auto Granulo 08-12-2 3.2 1.8-7.8 complet cytes # 013 K/mm3 ed Bld 14:10 Auto Lymphoc 08-12-2 2.7 0.7-4.5 complet ytes Fr 013 K/mm3 ed Bld 14:10 Auto Monocyt 08-12-2 0.3 0.1-1.0 complet es # 013 K/mm3 ed Bld 14:10 Auto Eosinop 08-12-2 0.1 0.0-0.4 complet hil # 013 K/mm3 ed Bld 14:10 Auto Basophi 08-12-2 0.0 0-0.2 complet ls # 013 K/MM3 ed Bld 14:10 Auto CBC with AUTO DIFF (04-04-2013 06:20) WBC # 08-10-2 4.8 4.8-10. complet Bld 013 K/MM3 8 ed Auto 06:20 RBC # 08-10-2 4.52 4.2-5.4 complet Bld 013 M/mm3 ed Auto 06:20 Hgb 08-10-2 13.7 12.2-16 complet Bld-mCn 013 g/dL .2 ed c 06:20 Hct Fr 08-10-2 42.0 % 37.0-47 complet Bld 013 .0 ed 06:20 MCV RBC 08-10-2 93.0 fl 82.2-97 complet 013 .8 ed 06:20 MCH RBC 08-10-2 30.2 pg 27-31.2 complet Qn 013 ed Auto 06:20 MEAN 08-10-2 32.5 31.8-35 complet CORPUSC 013 g/dl .4 ed ULAR 06:20 HGB CONC RDW RBC 08-10-2 15.4 % 11.5-17 complet Auto 013 .5 ed 06:20 Platele 08-10-2 243 142-424 complet t Bld 013 K/mm3 ed Ql 06:20 Manual MEAN 08-10-2 7.8 fl 7.4-10. complet PLATELE 013 4 ed T 06:20 VOLUME Granulo 08-10-2 35.0 % 37.0-80 complet cytes 013 .0 ed Fr Bld 06:20 Auto LYMPH % 08-10-2 56.8 % 10-50.0 complet 013 ed 06:20 Monocyt 08-10-2 5.6 % 1.7-9.3 complet es Fr 013 ed Bld 06:20 Auto Eosinop 08-10-2 2.3 % 0.1-12. complet hil Fr 013 0 ed Bld 06:20 Auto Basophi 08-10-2 0.3 % 0.1-2.0 complet ls Fr 013 ed Bld 06:20 Auto Granulo 08-10-2 1.7 1.8-7.8 complet cytes # 013 K/mm3 ed Bld 06:20 Auto Lymphoc 08-10-2 2.7 0.7-4.5 complet ytes Fr 013 K/mm3 ed Bld 06:20 Auto Monocyt 08-10-2 0.3 0.1-1.0 complet es # 013 K/mm3 ed Bld 06:20 Auto Eosinop 10-2 0.1 0.0-0.4 complet hil # 013 K/mm3 ed Bld 06:20 Auto Basophi 04-04-2 0.0 0-0.2 complet ls # 013 K/MM3 ed Bld 06:20 Auto COMPREHENSIVE METABOLIC PANEL (04-03-2013 13:15) Glucose 76 74-106 complet 013 mg/dL ed Bld-mCn 13:15 c BUN 12 7-18 complet Bld-mCn 013 mg/dL ed c 13:15 Creat 0.8 0.6-1.0 complet SerPl-m 013 mg/dL ed Cnc 13:15 ESTIMAT 91 50-200 complet ED 013 ML/MIN ed CREATIN 13:15 INE CLEARAN CE GFR 84 59- complet (ESTIMA 013 ML/MIN ed YAO) 13:15 Sodium 140 136-145 complet SerPl-s 013 mmoL/L ed Cnc 13:15 Potassi 4.2 3.5-5.1 complet um 013 mmoL/L ed SerPl-s 13:15 Cnc Chlorid 104 98-107 complet e 013 mmoL/L ed SerPl-s 13:15 Cnc CO2 30 21.0-32 complet SerPl-s 013 mmoL/L .0 ed Cnc 13:15 Calcium 9.0 8.5-10. complet 013 mg/dL 1 ed SerPl-m 13:15 Cnc Prot 7.5 6.4-8.2 complet SerPl-m 013 gm/dL ed Cnc 13:15 Albumin 3.9 3.4-5.0 complet 013 gm/dL ed SerPl-m 13:15 Cnc Globuli 3.6 1.3-3.2 complet n 013 gm/dL ed Ser-mCn 13:15 c Albumin 1.1 UNK 1.1-1.8 complet /Glob 013 ed SerPl-m 13:15 Rto Bilirub 0.2 0.2-1.0 complet 013 mg/dL ed SerPl-m 13:15 Cnc AST 16 U/L 15-37 complet SerPl-c 013 ed Cnc 13:15 ALT 50 U/L 30-65 complet SerPl-c 013 ed Cnc 13:15 ALP 98 U/L 50-136 complet SerPl-c 013 ed Cnc 13:15 Amylase SerPl-cCnc (04-03-2013 13:15) Amylase 51 U/L 25-115 complet 013 ed SerPl-c 13:15 Cnc OCCULT BLOOD (03-27-2013 11:15) Hemocul NEGATIV NEG complet t sp1 013 E ed Stl Ql 11:15 COMPREHENSIVE METABOLIC PANEL (03-27-2013 10:25) Glucose 73 74-106 complet 013 mg/dL ed Bld-mCn 10:25 c BUN 7 mg/dL 7-18 complet Bld-mCn 013 ed c 10:25 Creat 0.9 0.6-1.0 complet SerPl-m 013 mg/dL ed Cnc 10:25 ESTIMAT 82 50-200 complet ED 013 ML/MIN ed CREATIN 10:25 INE CLEARAN CE GFR 74 59- complet (ESTIMA 013 ML/MIN ed YAO) 10:25 Sodium 141 136-145 complet SerPl-s 013 mmoL/L ed Cnc 10:25 Potassi 3.9 3.5-5.1 complet um 013 mmoL/L ed SerPl-s 10:25 Cnc Chlorid 105 98-107 complet e 013 mmoL/L ed SerPl-s 10:25 Cnc CO2 31 21.0-32 complet SerPl-s 013 mmoL/L .0 ed Cnc 10:25 Calcium 8.9 8.5-10. complet 013 mg/dL 1 ed SerPl-m 10:25 Cnc Prot 7.4 6.4-8.2 complet SerPl-m 013 gm/dL ed Cnc 10:25 Albumin 08-02-2 3.9 3.4-5.0 complet 013 gm/dL ed SerPl-m 10:25 Cnc Globuli 08-02-2 3.5 1.3-3.2 complet n 013 gm/dL ed Ser-mCn 10:25 c Albumin 08-02-2 1.1 UNK 1.1-1.8 complet /Glob 013 ed SerPl-m 10:25 Rto Bilirub 08-02-2 0.3 0.2-1.0 complet 013 mg/dL ed SerPl-m 10:25 Cnc AST 08-02-2 20 U/L 15-37 complet SerPl-c 013 ed Cnc 10:25 ALT 08-02-2 70 U/L 30-65 complet SerPl-c 013 ed Cnc 10:25 ALP 08-02-2 103 U/L 50-136 complet SerPl-c 013 ed Cnc 10:25 LIPASE (03-27-2013 10:25) LIPASE 08-02-2 175 U/L 73-393 complet 013 ed 10:25 CBC with AUTO DIFF (03-27-2013 10:25) WBC # 08-02-2 5.8 4.8-10. complet Bld 013 K/MM3 8 ed Auto 10:25 RBC # 08-02-2 4.51 4.2-5.4 complet Bld 013 M/mm3 ed Auto 10:25 Hgb 08-02-2 13.3 12.2-16 complet Bld-mCn 013 g/dL .2 ed c 10:25 Hct Fr 08-02-2 41.4 % 37.0-47 complet Bld 013 .0 ed 10:25 MCV RBC 08-02-2 91.6 fl 82.2-97 complet 013 .8 ed 10:25 MCH RBC 08-02-2 29.5 pg 27-31.2 complet Qn 013 ed Auto 10:25 MEAN 08-02-2 32.3 31.8-35 complet CORPUSC 013 g/dl .4 ed ULAR 10:25 HGB CONC RDW RBC 08-02-2 15.3 % 11.5-17 complet Auto 013 .5 ed 10:25 Platele 08-02-2 350 142-424 complet t Bld 013 K/mm3 ed Ql 10:25 Manual MEAN 08-02-2 7.7 fl 7.4-10. complet PLATELE 013 4 ed T 10:25 VOLUME Granulo 08-02-2 51.2 % 37.0-80 complet cytes 013 .0 ed Fr Bld 10:25 Auto LYMPH % 08-02-2 40.9 % 10-50.0 complet 013 ed 10:25 Monocyt 08-02-2 5.9 % 1.7-9.3 complet es Fr 013 ed Bld 10:25 Auto Eosinop 08-02-2 1.6 % 0.1-12. complet hil Fr 013 0 ed Bld 10:25 Auto Basophi 08-02-2 0.3 % 0.1-2.0 complet ls Fr 013 ed Bld 10:25 Auto Granulo 08-02-2 3.0 1.8-7.8 complet cytes # 013 K/mm3 ed Bld 10:25 Auto Lymphoc 08-02-2 2.4 0.7-4.5 complet ytes Fr 013 K/mm3 ed Bld 10:25 Auto Monocyt 08-02-2 0.4 0.1-1.0 complet es # 013 K/mm3 ed Bld 10:25 Auto Eosinop 08-02-2 0.1 0.0-0.4 complet hil # 013 K/mm3 ed Bld 10:25 Auto Basophi 08-02-2 0.0 0-0.2 complet ls # 013 K/MM3 ed Bld 10:25 Auto URINALYSIS/COMPLETE (03-27-2013 10:10) URINE 08-02-2 YELLOW YELLOW complet COLOR 013 ed 10:10 URINE 08-02-2 CLOUDY CLEAR complet APPEARA 013 ed NCE 10:10 URINE 08-02-2 NEGATIV NEG complet GLUCOSE 013 E ed - 10:10 DIPSTIC K URINE 08-02-2 NEGATIV NEG complet BILIRUB 013 E ed IN - 10:10 DIPSTIC K URINE 08-02-2 NEGATIV NEG complet KETONE 013 E mg/dL ed 10:10 URINE 08-02-2 1.025 1.005-1 complet SPECIFI 013 UNK .030 ed C 10:10 GRAVITY URINE 08-02-2 NEGATIV NEG complet BLOOD 013 E ed 10:10 URINE 08-02-2 6.0 UNK 5.0-8.5 complet PH 013 ed 10:10 URINE 2 NEGATIV NEG complet PROTEIN 013 E mg/dL ed - 10:10 DIPSTIC K URINE 2 0.2 NEG complet UROBILI 013 E.U./dL ed NOGEN - 10:10 DIPSTIC K URINE POSITIV NEG complet NITRATE 013 E ed - 10:10 DIPSTIC K URINE TRACE NEG complet LEUK 013 ed ESTERAS 10:10 E URINE 03-27-2 5-10 O complet WBC 013 wbc/hpf ed 10:10 URINE 03-27- 5-10 0-5 complet SQUAMOU 013 #/hpf ed S CELLS 10:10 URINE 4+ O complet BACTERI 013 ed A 10:10 COMPREHENSIVE METABOLIC PANEL (12-12-2012 21:15) Glucose 115 74-106 complet 013 mg/dL ed Bld-mCn 21:15 c BUN 4 mg/dL 7-18 complet Bld-mCn 013 ed c 21:15 Creat 0.9 0.6-1.0 complet SerPl-m 013 mg/dL ed Cnc 21:15 ESTIMAT 92 50-200 complet ED 013 ML/MIN ed CREATIN 21:15 INE CLEARAN CE GFR 74 59- complet (ESTIMA 013 ML/MIN ed YAO) 21:15 Sodium 139 136-145 complet SerPl-s 013 mmoL/L ed Cnc 21:15 Potassi 3.4 3.5-5.1 complet um 013 mmoL/L ed SerPl-s 21:15 Cnc Chlorid 103 98-107 complet e 013 mmoL/L ed SerPl-s 21:15 Cnc CO2 30 21.0-32 complet SerPl-s 013 mmoL/L .0 ed Cnc 21:15 Calcium 8.8 8.5-10. complet 013 mg/dL 1 ed SerPl-m 21:15 Cnc Prot 6.1 6.4-8.2 complet SerPl-m 013 gm/dL ed Cnc 21:15 Albumin 04-19-2 3.5 3.4-5.0 complet 013 gm/dL ed SerPl-m 21:15 Cnc Globuli 12-12-2 2.6 1.3-3.2 complet n 013 gm/dL ed Ser-mCn 21:15 c Albumin 12-12-2 1.3 UNK 1.1-1.8 complet /Glob 013 ed SerPl-m 21:15 Rto Bilirub 12-12-2 0.1 0.2-1.0 complet 013 mg/dL ed SerPl-m 21:15 Cnc AST 12-12-2 11 U/L 15-37 complet SerPl-c 013 ed Cnc 21:15 ALT 12-12-2 26 U/L 30-65 complet SerPl-c 013 ed Cnc 21:15 ALP 12-12-2 84 U/L 50-136 complet SerPl-c 013 ed Cnc 21:15 CBC with AUTO DIFF (12-12-2012 21:15) WBC # 19-2 5.3 4.8-10. complet Bld 013 K/MM3 8 ed Auto 21:15 RBC # 12-12-2 4.11 4.2-5.4 complet Bld 013 M/mm3 ed Auto 21:15 Hgb 12-12-2 12.1 12.2-16 complet Bld-mCn 013 g/dL .2 ed c 21:15 Hct Fr 12-12-2 38.0 % 37.0-47 complet Bld 013 .0 ed 21:15 MCV RBC 12-12-2 92.4 fl 82.2-97 complet 013 .8 ed 21:15 MCH RBC 12-12-2 29.5 pg 27-31.2 complet Qn 013 ed Auto 21:15 MEAN 12-12-2 32.0 31.8-35 complet CORPUSC 013 g/dl .4 ed ULAR 21:15 HGB CONC RDW RBC 12-12-2 14.2 % 11.5-17 complet Auto 013 .5 ed 21:15 Platele -19-2 286 142-424 complet t Bld 013 K/mm3 ed Ql 21:15 Manual MEAN 12-12-2 7.9 fl 7.4-10. complet PLATELE 013 4 ed T 21:15 VOLUME Granulo 12-12-2 36.3 % 37.0-80 complet cytes 013 .0 ed Fr Bld 21:15 Auto LYMPH % 04-19-2 56.0 % 10-50.0 complet 013 ed 21:15 Monocyt 04-19-2 5.5 % 1.7-9.3 complet es Fr 013 ed Bld 21:15 Auto Eosinop 04-19-2 1.9 % 0.1-12. complet hil Fr 013 0 ed Bld 21:15 Auto Basophi 04-19-2 0.3 % 0.1-2.0 complet ls Fr 013 ed Bld 21:15 Auto Granulo 04-19-2 1.9 1.8-7.8 complet cytes # 013 K/mm3 ed Bld 21:15 Auto Lymphoc 04-19-2 3.0 0.7-4.5 complet ytes Fr 013 K/mm3 ed Bld 21:15 Auto Monocyt 04-19-2 0.3 0.1-1.0 complet es # 013 K/mm3 ed Bld 21:15 Auto Eosinop 04-19-2 0.1 0.0-0.4 complet hil # 013 K/mm3 ed Bld 21:15 Auto Basophi 04-19-2 0.0 0-0.2 complet ls # 013 K/MM3 ed Bld 21:15 Auto URINALYSIS/COMPLETE (12-12-2012 20:10) URINE 04-19-2 YELLOW YELLOW complet COLOR 013 ed 20:10 URINE 04-19-2 CLEAR CLEAR complet APPEARA 013 ed NCE 20:10 URINE 04-19-2 NEGATIV NEG complet GLUCOSE 013 E ed - 20:10 DIPSTIC K URINE 04-19-2 NEGATIV NEG complet BILIRUB 013 E ed IN - 20:10 DIPSTIC K URINE 04-19-2 NEGATIV NEG complet KETONE 013 E mg/dL ed 20:10 URINE 04-19-2 Less 1.005-1 complet SPECIFI 013 than or .030 ed C 20:10 equal GRAVITY to 1.005 URINE 04-19-2 NEGATIV NEG complet BLOOD 013 E ed 20:10 URINE 04-19-2 6.0 UNK 5.0-8.5 complet PH 013 ed 20:10 URINE 04-19-2 NEGATIV NEG complet PROTEIN 013 E mg/dL ed - 20:10 DIPSTIC K URINE 04-19-2 0.2 NEG complet UROBILI 013 E.U./dL ed NOGEN - 20:10 DIPSTIC K URINE NEGATIV NEG complet NITRATE 013 E ed - 20:10 DIPSTIC K URINE NEGATIV NEG complet LEUK 013 E ed ESTERAS 20:10 E URINE 20-50 0-5 complet SQUAMOU 013 #/hpf ed S CELLS 20:10 URINE TRACE O complet BACTERI 013 ed A 20:10 COMPREHENSIVE METABOLIC PANEL (10-17-2012 15:05) Glucose 110 74-106 complet 013 mg/dL ed Bld-mCn 15:05 c BUN 4 mg/dL 7-18 complet Bld-mCn 013 ed c 15:05 Creat 0.8 0.6-1.0 complet SerPl-m 013 mg/dL ed Cnc 15:05 ESTIMAT 104 50-200 complet ED 013 ML/MIN ed CREATIN 15:05 INE CLEARAN CE GFR 85 59- complet (ESTIMA 013 ML/MIN ed YAO) 15:05 Sodium 139 136-145 complet SerPl-s 013 mmoL/L ed Cnc 15:05 Potassi 3.8 3.5-5.1 complet um 013 mmoL/L ed SerPl-s 15:05 Cnc Chlorid 102 98-107 complet e 013 mmoL/L ed SerPl-s 15:05 Cnc CO2 27 21.0-32 complet SerPl-s 013 mmoL/L .0 ed Cnc 15:05 Calcium 9.0 8.5-10. complet 013 mg/dL 1 ed SerPl-m 15:05 Cnc Prot 7.1 6.4-8.2 complet SerPl-m 013 gm/dL ed Cnc 15:05 Albumin 3.7 3.4-5.0 complet 013 gm/dL ed SerPl-m 15:05 Cnc Globuli 3.4 1.3-3.2 complet n 013 gm/dL ed Ser-mCn 15:05 c Albumin 1.1 UNK 1.1-1.8 complet /Glob 013 ed SerPl-m 15:05 Rto Bilirub 10-17-2 0.2 0.2-1.0 complet 013 mg/dL ed SerPl-m 15:05 Cnc AST 10-17-2 56 U/L 15-37 complet SerPl-c 013 ed Cnc 15:05 ALT 10-17- 92 U/L 30-65 complet SerPl-c 013 ed Cnc 15:05 ALP 10-17-2 139 U/L 50-136 complet SerPl-c 013 ed Cnc 15:05 LIPASE (10-17-2012 15:05) LIPASE 102 U/L 73-393 complet 013 ed 15:05 CBC with AUTO DIFF (10-17-2012 15:05) WBC # 02-22-2 8.8 4.8-10. complet Bld 013 K/MM3 8 ed Auto 15:05 RBC # 10-17-2 4.32 4.2-5.4 complet Bld 013 M/mm3 ed Auto 15:05 Hgb 10-17-2 12.8 12.2-16 complet Bld-mCn 013 g/dL .2 ed c 15:05 Hct Fr 10-17-2 39.0 % 37.0-47 complet Bld 013 .0 ed 15:05 MCV RBC 10-17-2 90.3 fl 82.2-97 complet 013 .8 ed 15:05 MCH RBC 10-17-2 29.6 pg 27-31.2 complet Qn 013 ed Auto 15:05 MEAN 10-17-2 32.8 31.8-35 complet CORPUSC 013 g/dl .4 ed ULAR 15:05 HGB CONC RDW RBC 10-17-2 13.4 % 11.5-17 complet Auto 013 .5 ed 15:05 Platele 10-17-2 310 142-424 complet t Bld 013 K/mm3 ed Ql 15:05 Manual MEAN 10-17-2 7.0 fl 7.4-10. complet PLATELE 013 4 ed T 15:05 VOLUME Granulo 10-17-2 67.3 % 37.0-80 complet cytes 013 .0 ed Fr Bld 15:05 Auto LYMPH % 10-17-2 25.9 % 10-50.0 complet 013 ed 15:05 Monocyt 10-17-2 3.6 % 1.7-9.3 complet es Fr 013 ed Bld 15:05 Auto Eosinop -22-2 3.0 % 0.1-12. complet hil Fr 013 0 ed Bld 15:05 Auto Basophi 10-17-2 0.3 % 0.1-2.0 complet ls Fr 013 ed Bld 15:05 Auto Granulo 10-17-2 5.9 1.8-7.8 complet cytes # 013 K/mm3 ed Bld 15:05 Auto Lymphoc 10-17-2 2.3 0.7-4.5 complet ytes Fr 013 K/mm3 ed Bld 15:05 Auto Monocyt 10-17-2 0.3 0.1-1.0 complet es # 013 K/mm3 ed Bld 15:05 Auto Eosinop 10-17-2 0.3 0.0-0.4 complet hil # 013 K/mm3 ed Bld 15:05 Auto Basophi 10-17-2 0.0 0-0.2 complet ls # 013 K/MM3 ed Bld 15:05 Auto URINALYSIS/COMPLETE (10-17-2012 15:00) URINE STRAW YELLOW complet COLOR 013 ed 15:00 URINE 10-17-2 SL CLEAR complet APPEARA 013 CLOUDY ed NCE 15:00 URINE NEGATIV NEG complet GLUCOSE 013 E ed - 15:00 DIPSTIC K URINE NEGATIV NEG complet BILIRUB 013 E ed IN - 15:00 DIPSTIC K URINE 10-17- NEGATIV NEG complet KETONE 013 E mg/dL ed 15:00 URINE 10-17- Less 1.005-1 complet SPECIFI 013 than or .030 ed C 15:00 equal GRAVITY to 1.005 URINE 10-17- TRACE-L NEG complet BLOOD 013 YSED ed 15:00 URINE 10-17- 7.0 UNK 5.0-8.5 complet PH 013 ed 15:00 URINE NEGATIV NEG complet PROTEIN 013 E mg/dL ed - 15:00 DIPSTIC K URINE 10-17-2 0.2 NEG complet UROBILI 013 E.U./dL ed NOGEN - 15:00 DIPSTIC K URINE 02-22-2 NEGATIV NEG complet NITRATE 013 E ed - 15:00 DIPSTIC K URINE NEGATIV NEG complet LEUK 013 E ed ESTERAS 15:00 E URINE RARE 0 complet RBC 013 rbc/hpf ed 15:00 URINE OCC O complet WBC 013 wbc/hpf ed 15:00 URINE 40-50 0-5 complet SQUAMOU 013 #/hpf ed S CELLS 15:00 URINE OCC O complet BACTERI 013 ed A 15:00 Procedures Procedure DOS Code Location Performer Comment OTHER 45.13 Venkat Pacheco MD OF INTEST Encounters Encounter Start End Date Code Location Performer Type Date Emergency ROBERT Dickens MD (ER) 4 21:50 4 00:49 [facility] Emergency ROBERT Dickens MD (ER) 3 20:23 3 21:19 [facility] Inpatient IMP (IN) 3 14:37 3 11:20 Emergency ROBERT Sanabria MD (ER) 3 10:08 3 14:34 [facility] Emergency ROBERT Dickens MD (ER) 3 20:28 3 23:23 [facility] Emergency ROBERT CESAR (ER) 3 14:55 3 16:30 [facility]
--- OUTSIDE RECORDS SUMMARY | 2017-02-27 12:37 | External Medical Summary Rpt ---
Author Author , Organization [employer] Address Unknown Phone Unavailable Care Team Providers Care Blue Leather Sorter Name Role Phone [facility] Unavailable [place]available [place] [place] Yamile Sanabria MD, Unavailable Unavailable Yamile Pacheco MD, Venkat Unavailable Unavailable Dary Dickens MD, Unavailable Unavailable Shola Fraga MD, Unavailable Unavailable Camilla Fraga MD [facility] # Unavailable Unavailable [id number], [facility] # [id number] Purpose Continuity of Care Document - 11-17-2009 through 2016 Problems Code Diagnosis DOS Provider Status 300.00 300.00 03-27-2013 [place] ANXIETY [facility] STATE NOS [facility] 305.1 305.1 03-27-2013 [place] TOBACCO USE [facility] DISORDER Hospital 401.9 401.9 03-27-2013 [place] HYPERTENSIO [facility] N NOS [facility] 590.80 590.80 03-27-2013 [place] PYELONEPHRI [facility] Hospital V12.04 V12.04 03-27-2013 [facility] METHICILLIN RESISTANT STAPHYLOCOC CUS AUREUS V12.79 V12.79 03-27-2013 [place] PERSONAL [facility] HISTORY [facility] Hospital SPEC DIGESTIVE SYSTEM DISEASE V14.5 V14.5 03-27-2013 [place] HX-NARCOTIC [facility] ALLERGY [facility] V14.8 V14.8 03-27-[address] [facility]-DRUG [facility] ALLERGY [facility] V58.69 V58.69 OT 03-27-2013 [place] [facility] ENT USE [facility] 789.04 789.04 12-12-2012 [place] ABDOMINAL [facility] PAIN, LEFT Hospital LOWER QUADRANT [id number] Acute [place] pancreatiti [facility] R51 HEADACHE Allergies, Adverse Reactions, Alerts Type [...] ve 0. 9% SO [place]AH[place] TI ON MS 55 02 0 No OC 39 -1 [...] er -A 2 CE Ac TA ti VT ve NO PH EN 5- 32 5 [...] ve 0. 9% SO TAH[place] TI ON MS 00 08 4 No OM 64 -0 [...] er -A 2 CE Ac TA ti VT ve NO PH EN 5- 32 5 [...] 10 10 0 90 30 EA 24 VT Ac BA 71 -3 -[address] 72 CH ti PE 40 1- 1- 00 SI 55 EL ve NT 66 20 20 DE MA IN 30 11 11 N 2 PH ANA MARÍA 40 AR HN 0 MA D MG CY CA OF PS UL CY E NT HI AN A MS 16 10 10 0 90 30 EA 24 VT Ac OP 71 -3 -[address] 72 CH ti RA 40 1- 1- 00 SI 56 EL ve NO 02 20 20 DE MA LO 10 11 11 N L 4 PH ANA MARÍA 10 AR HN MA D MG CY TA OF BL ET CY NT HI AN A PH 65 10 10 0 9. 3 EA 24 VT Ac EN 16 -3 -[address] 72 CH ti AZ 20 1- 1- 0 SI 57 EL ve OP 52 20 20 DE MA YR 01 11 11 N ID 0 PH ANA MARÍA IN AR HN E MA D 20 CY 0 MG OF TA CY B NT HI AN A SE 00 10 10 0 30 30 EA 24 VT Ac RO 31 -2 -[address] 72 CH ti QU 00 8- 1- 00 SI 54 EL ve EL 28 20 20 DE MA 36 11 11 N XR 0 PH ANA MRAÍA AR HN 30 MA D 0 CY MG OF TA BL CY ET NT HI AN A VT 00 10 10 0 30 30 EA [...] 11 11 RI TA 8 PH CH VT AR AR N- MA D CA CY [...] 5 60 30 EA 23 CL Ac MS 18 -3 -[address] 89 AR [...] 11 11 RI TA 8 PH CH VT AR AR N- MA D CA CY [...] 20 20 DE AC 90 11 11 VT 1 PH CH SO AR AE D MA L EC CY S 75 OF MG CY NT TA HI B AN A CY 00 09 09 0 14 7 EA 24 GA Ac CL 37 -1 -[address] 13 IN ti OB 80 8- 8- 00 SI 78 EY ve EN 75 20 20 DE ZA 11 11 11 VT MS 0 PH CH IN AR AE E [...] 11 11 RI TA 8 PH CH VT AR AR N- MA D CA CY [...] 5 60 30 EA 23 CL Ac MS 18 -3 -[address] 89 AR ti OP 50 0- 0- 00 SI 06 KE ve IO 41 20 20 DE N 50 11 11 DE HC 5 PH RE L AR K SR MA J CY 15 0 OF MG CY TA NT BL HI ET AN A MS 00 08 08 1 12 3 EA [...] 0 10 5 EA 23 CL Ac MS 71 -2 -[address] 75 AR ti OF 40 1- 1- 00 SI 01 KE ve LO 65 20 20 DE XA 20 11 11 DE CI 4 PH RE N AR K HC MA J L CY 50 0 OF MG CY TA NT B HI AN A CI 16 08 08 0 10 5 EA 23 WE Ac MS 71 -1 -[address] 69 HR ti OF 40 7- 7- 00 SI 67 MA ve LO 65 20 20 DE N XA 10 11 11 II CI 2 PH I N AR WI HC MA LL L CY IA 25 M 0 OF E MG CY TA NT B HI AN A MS 00 08 08 0 12 3 EA [...] 11 11 RI TA 8 PH CH VT AR AR N- MA D CA CY [...] 11 11 RI TA 8 PH CH VT AR AR N- MA D CA CY [...] 20 DE ZA 11 11 11 RO MS 0 PH GE IN AR R E [...] 11 11 RI TA 8 PH CH VT AR AR N- MA D CA CY W FF OF 50 -3 CY 25 NT -4 HI 0 AN A CY 00 07 07 0 15 5 EA 23 SO Ac CL 37 -0 -[address] 16 KA ti OB 80 2- 2- 00 SI 72 N ve EN 75 20 20 DE BA ZA 11 11 11 BA MS 0 PH TU IN AR ND E [...] 11 11 RI TA 8 PH CH VT AR AR N- MA D CA CY [...] 11 11 RI TA 8 PH CH VT AR AR N- MA D CA CY [...] 11 11 RI TA 8 PH CH VT AR AR N- MA D CA CY [...] UL CY E NT HI AN A MS 00 03 03 0 20 5 EA [...] CY NT TA HI B AN A MS 68 03 03 0 12 2 WA [...] R OF CY NT HI AN A MS 00 03 03 1 20 5 EA [...] 20 DE ZA 11 11 11 RI MS 0 PH CH IN AR AR E [...] 11 11 RI TA 8 PH CH VT AR AR N- MA D CA CY W FF OF 50 -3 CY 25 NT -4 HI 0 AN A MS 00 03 03 1 20 5 EA [...] 11 11 RI TA 8 PH CH VT AR AR N- MA D CA CY W FF OF 50 -3 CY 25 NT -4 HI 0 AN A NA 00 01 01 1 60 30 EA 20 CL Ac MS 09 -2 -[address] 97 AR [...] 11 11 RI TA 8 PH CH VT AR AR N- MA D CA CY [...] PS NT UL HI E AN A MS 00 09 09 1 30 7 EA [...] Dickens MD (ER) 4 21:50 4 00:49 [facility] Emergency ROBERT Dickens MD (ER) 3 20:23 3 21:19 [facility] Inpatient IMP (IN) 3 14:37 3 11:20 Emergency ROBERT Sanabria MD (ER) 3 10:08 3 14:34 [facility] Emergency ROBERT Dickens MD (ER) 3 20:28 3 23:23 [facility] Emergency ROBERT CESAR (ER) 3 14:55 3 16:30 [facility]
--- OUTSIDE RECORDS SUMMARY | 2017-02-27 12:41 | External Medical Summary Rpt ---
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 Role Phone [facility] Unavailable Unavailable [place], [facility] [place] [facility] Unavailable Unavailable [id number], [facility] # [id number] Purpose Continuity of Care Document - 11-17-2009 through 2016 Medications Na ND Rx Da Fi Fi Am Da Di Ph RX Ph St me C No te ll ll ou ys ag ar # ys at rm s nt no ma ic us Or Da si cy ia de te s n re d SE 00 10 10 0 30 30 EA 24 WV Ac RO 31 -2 -[address] 72 CH ti QU 00 8- 1- 00 SI 54 EL ve EL 28 20 20 DE MA 36 11 11 N XR 0 PH ANA MARÍA AR HN 30 MA D 0 CY MG OF TA BL CY ET NT HI AN A GA 16 10 10 0 90 30 EA 24 WV Ac BA 71 -3 -[address] 72 CH ti PE 40 1- 1- 00 SI 55 EL ve NT 66 20 20 DE MA IN 30 11 11 N 2 PH ANA MARÍA 40 AR HN 0 MA D MG CY CA OF PS UL CY E NT HI AN A NH 16 10 10 0 90 30 EA 24 WV Ac OP 71 -3 -[address] 72 CH ti RA 40 1- 1- 00 SI 56 EL ve NO 02 20 20 DE MA LO 10 11 11 N L 4 PH ANA MARÍA 10 AR HN MA D MG CY TA OF BL ET CY NT HI AN A PH 65 10 10 0 9. 3 EA 24 WV Ac EN 16 -3 -[address] 72 CH ti AZ 20 1- 1- 0 SI 57 EL ve OP 52 20 20 DE MA YR 01 11 11 N ID 0 PH ANA MARÍA IN AR HN E MA D 20 CY 0 MG OF TA CY B NT HI AN A WV 00 10 10 0 30 30 EA [...] 11 11 RI TA 8 PH CH WV AR AR N- MA D CA CY [...] 5 60 30 EA 23 CL Ac NH 18 -3 -[address] 89 AR [...] E NT HI AN A BU 00 09 09 5 60 15 EA 23 AR Ac TA 60 -0 -[address] 95 NO ti LB 32 3- 3- 00 SI 61 LD ve -A 54 20 20 DE CE 42 11 11 RI TA 8 PH CH WV AR AR N- MA D CA CY W FF OF 50 -3 CY 25 NT -4 HI 0 AN A AM 52 03 09 3 [...] CY NT TA HI B AN A EN 60 09 09 0 60 15 EA 24 AR Ac DO 95 -2 -[address] 17 NO ti CE 10 0- 0- 00 SI 00 LD ve T 71 20 20 DE 10 27 11 11 RI -3 0 PH CH 25 AR AR MA D MG CY W TA OF BL ET CY NT HI AN A CY 00 09 09 0 14 7 EA 24 GA Ac CL 37 -1 -[address] 13 IN ti OB 80 8- 8- 00 SI 78 EY ve EN 75 20 20 DE ZA 11 11 11 WV NH 0 PH CH IN AR AE E MA L 10 CY S MG OF TA CY BL NT ET HI AN A DI 00 09 09 0 14 7 EA 24 GA Ac CL 78 -1 -[address] 13 IN ti OF 11 8 8 00 SI 79 EY ve EN 78 20 20 DE AC 90 11 11 WV 1 PH CH SO AR AE D [...] 11 11 RI TA 8 PH CH WV AR AR N- MA D CA CY [...] 5 60 30 EA 23 CL Ac NH 18 -3 -[address] 89 AR ti OP 50 0- 0- 00 SI 06 KE ve IO 41 20 20 DE N 50 11 11 DE HC 5 PH RE L AR K SR MA J CY 15 0 OF MG CY TA NT BL HI ET AN A NH 00 08 08 1 12 3 EA 23 CL Ac OM 78 -2 -[address] 78 AR ti ET 11 3 3- 00 SI 22 KE ve URBINA 83 20 20 DE ZI 01 11 11 DE NE 0 PH RE AR K 25 MA J CY MG OF TA BL CY ET NT HI AN A CI 16 08 08 0 10 5 EA 23 CL Ac NH 71 -2 -[address] 75 AR ti OF 40 1- 1- 00 SI 01 KE ve LO 65 20 20 DE XA 20 11 11 DE CI 4 PH RE N AR K HC MA J L CY 50 0 OF MG CY TA NT B HI AN A PH 65 08 08 [...] 0 10 5 EA 23 WE Ac NH 71 -1 -[address] 69 HR ti OF 40 7- 7- 00 SI 67 MA ve LO 65 20 20 DE N XA 10 11 11 II CI 2 PH I N AR WI HC MA LL L CY IA 25 M 0 OF E MG CY TA NT B HI AN A NH 00 08 08 0 12 3 EA [...] 11 11 RI TA 8 PH CH WV AR AR N- MA D CA CY [...] 11 11 RI TA 8 PH CH WV AR AR N- MA D CA CY [...] 20 DE ZA 11 11 11 RO NH 0 PH GE IN AR R E [...] 11 11 RI TA 8 PH CH WV AR AR N- MA D CA CY W FF OF 50 -3 CY 25 NT -4 HI 0 AN A CY 00 07 07 0 15 5 EA 23 SO Ac CL 37 -0 -[address] 16 KA ti OB 80 2- 2- 00 SI 72 N ve EN 75 20 20 DE BA ZA 11 11 11 BA NH 0 PH TU IN AR ND E MA E 10 CY O MG OF TA CY BL NT ET HI AN A SE 51 03 07 3 91 91 EA 21 CL Ac 28 -2 -[address] 88 AR ti ON 50 8- 00 SI 15 KE ve IQ 08 [...] 11 11 RI TA 8 PH CH WV AR AR N- MA D CA CY [...] 11 11 RI TA 8 PH CH WV AR AR N- MA D CA CY W FF OF 50 -3 CY 25 NT -4 HI 0 AN A AC 00 05 05 0 12 3 EA 22 URBINA Ac ET 09 -2 -[address] 63 RP ti AM 30 1- 00 SI 11 EL ve IN 15 20 20 DE OP 00 11 11 GE HE 1 PH RA N- AR LD CO MA R D CY #3 OF TA BL CY ET NT HI AN A NI 47 05 [...] 10 NT 0 HI MG AN A PH 65 05 05 0 6. 2 EA 22 WE Ac EN 16 -1 -[address] 60 HR ti AZ 20 9- 9- 0 SI 74 MA ve OP 52 20 20 DE N YR 01 11 11 II ID 0 PH I IN VT WI E MA LL 20 CY IA 0 M MG OF E TA CY B NT HI AN A 59 05 05 1 15 [...] 11 11 RI TA 8 PH CH WV AR AR N- MA D CA CY [...] UL CY E NT HI AN A NH 00 03 03 0 20 5 EA [...] ST 88 AR ti ON 50 8- 8- 00 SI 15 KE ve IQ 08 20 20 DE UE 78 11 11 DE 7 PH RE 0. AR K 15 MA J -0 CY .0 3- OF 0. 01 CY NT TA HI B AN A NH 68 03 03 0 12 2 WA [...] R OF CY NT HI AN A NH 00 03 03 1 20 5 EA 21 CL Ac OM 78 -0 -[address] 48 AR ti ET 11 1- 6- 00 SI 16 KE ve URBINA 83 [...] 20 DE ZA 11 11 11 RI NH 0 PH CH IN AR AR E MA D 10 CY W MG OF TA CY BL NT ET HI AN A OX 00 03 03 [...] BL ET CY NT HI AN A CE 00 03 03 0 21 7 EA 21 WR Ac PH 09 -0 -[address] 62 IG ti AL 33 9- 9- 00 SI 82 HT ve EX 14 20 20 DE IN 70 11 11 TI 5 PH FF 50 AR AN 0 MA Y MG CY N CA OF PS UL CY E NT HI AN A 48 03 03 2 3. 4 EA 21 WR Ac 10 -0 -[address] 62 IG ti 20 9- 9- 0 SI 83 HT ve 00 20 20 DE 73 11 11 TI 5 PH FF AR AN MA Y CY N OF CY NT HI AN A 00 03 03 0 30 8 EA 21 WR Ac 05 -0 -[address] 62 IG ti 44 9- 9- 00 SI 85 HT ve 65 20 20 DE 02 11 11 TI 9 PH FF AR AN MA Y CY N OF CY NT HI AN A SM 49 [...] CY RA NT Y HI AN A BU 00 01 03 2 60 15 EA 20 AR Ac TA 60 -2 -[address] 94 NO ti LB 32 5- 7- 00 SI 56 LD ve -A 54 20 20 DE CE 42 11 11 RI TA 8 PH CH WV AR AR N- MA D CA CY W FF OF 50 -3 CY 25 NT -4 HI 0 AN A NH 00 03 03 1 20 5 EA [...] CY OF CY NT HI AN A EN 60 02 02 0 12 3 EA 21 GR Ac DO 95 -2 -[address] 36 AY ti CE 10 3- 3- 00 SI 80 ve T 70 20 20 DE RO 7. 07 11 11 BE 5- 0 PH RT 32 AR B 5 MA MG CY TA OF BL ET CY NT HI AN A NI 00 [...] 10 NT 0 HI MG AN A PH 65 02 02 0 6. 3 EA 21 GR Ac EN 16 -2 -[address] 36 AY ti AZ 20 3- 3- 0 SI 82 ve OP 52 20 20 DE RO YR 01 11 11 BE ID 0 PH RT IN AR B E MA 20 CY 0 MG OF TA CY B NT HI AN A 00 02 02 [...] TC CY H NT HI AN A BU 00 01 02 2 60 15 EA 20 AR Ac TA 60 -2 -[address] 94 NO ti LB 32 5- 7- 00 SI 56 LD ve -A 54 20 20 DE CE 42 11 11 RI TA 8 PH CH WV AR AR N- MA D CA CY W FF OF 50 -3 CY 25 NT -4 HI 0 AN A 00 01 01 0 30 8 EA 20 CL Ac 59 -2 -[address] 97 AR ti 10 7- 7- 00 SI 64 KE ve 54 20 20 DE 00 11 11 DE 1 PH RE AR K MA J CY OF CY NT HI AN A NA 00 01 01 1 60 30 EA 20 CL Ac NH 09 -2 -[address] 97 AR ti OX 30 7- 7- 00 SI 65 KE ve EN 14 20 20 DE 90 11 11 DE 50 1 PH RE 0 AR K MG MA J CY TA BL OF ET CY NT HI AN A AZ 00 01 01 1 [...] CY ET NT HI AN A 60 01 01 [...] 11 11 RI TA 8 PH CH WV AR AR N- MA D CA CY W FF OF 50 -3 CY 25 NT -4 HI 0 AN A 60 06 12 1 24 [...] PS NT UL HI E AN A NH 00 09 09 1 30 7 EA [...]
--- OUTSIDE RECORDS SUMMARY | 2017-02-27 12:41 | External Medical Summary Rpt ---
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 Role Phone [facility] Unavailable Unavailable [place], [facility] [place] [facility] # Unavailable Unavailable [id number], [facility] # [id number] Purpose Continuity of Care Document - 11-17-2009 through 2016 Medications Na ND Rx Da Fi Fi Am Da Di Ph RX Ph St me C No te ll ll ou ys ag ar # ys at rm s nt no ma ic us Or Da si cy ia de te s n re d SE 00 10 10 0 30 30 EA 24 RI Ac RO 31 -2 -[address] 72 CH ti QU 00 8- 1- 00 SI 54 EL ve EL 28 20 20 DE MA 36 11 11 N XR 0 PH ANA MARÍA AR HN 30 MA D 0 CY MG OF TA BL CY ET NT HI AN A GA 16 10 10 0 90 30 EA 24 RI Ac BA 71 -3 -[address] 72 CH ti PE 40 1- 1- 00 SI 55 EL ve NT 66 20 20 DE MA IN 30 11 11 N 2 PH ANA MARÍA 40 AR HN 0 MA D MG CY CA OF PS UL CY E NT HI AN A OH 16 10 10 0 90 30 EA 24 RI Ac OP 71 -3 -[address] 72 CH ti RA 40 1- 1- 00 SI 56 EL ve NO 02 20 20 DE MA LO 10 11 11 N L 4 PH ANA MARÍA 10 AR HN MA D MG CY TA OF BL ET CY NT HI AN A PH 65 10 10 0 9. 3 EA 24 RI Ac EN 16 -3 -[address] 72 CH ti AZ 20 1- 1- 0 SI 57 EL ve OP 52 20 20 DE MA YR 01 11 11 N ID 0 PH ANA MARÍA IN AR HN E MA D 20 CY 0 MG OF TA CY B NT HI AN A RI 00 10 10 0 30 30 EA [...] 11 11 RI TA 8 PH CH RI AR AR N- MA D CA CY [...] 5 60 30 EA 23 CL Ac OH 18 -3 -[address] 89 AR [...] 11 11 RI TA 8 PH CH RI AR AR N- MA D CA CY [...] 20 DE ZA 11 11 11 RI OH 0 PH CH IN AR AE E MA L 10 CY S MG OF TA CY BL NT ET HI AN A DI 00 09 09 0 14 7 EA 24 GA Ac CL 78 -1 -[address] 13 IN ti OF 11 8 8 00 SI 79 EY ve EN 78 20 20 DE AC 90 11 11 RI 1 PH CH SO AR AE D [...] 11 11 RI TA 8 PH CH RI AR AR N- MA D CA CY [...] 5 60 30 EA 23 CL Ac OH 18 -3 -[address] 89 AR ti OP 50 0- 0- 00 SI 06 KE ve IO 41 20 20 DE N 50 11 11 DE HC 5 PH RE L AR K SR MA J CY 15 0 OF MG CY TA NT BL HI ET AN A OH 00 08 08 1 12 3 EA [...] 0 10 5 EA 23 CL Ac OH 71 -2 -[address] 75 AR [...] 0 10 5 EA 23 WE Ac OH 71 -1 -[address] 69 HR ti OF 40 7- 7- 00 SI 67 MA ve LO 65 20 20 DE N XA 10 11 11 II CI 2 PH I N AR WI HC MA LL L CY IA 25 M 0 OF E MG CY TA NT B HI AN A OH 00 08 08 0 12 3 EA 23 WE Ac OM 78 -1 -[address] 69 HR ti ET 11 7- 7- 00 SI 68 MA ve UBRINA 83 20 20 DE N ZI 01 [...] 11 11 RI TA 8 PH CH RI AR AR N- MA D CA CY [...] 11 11 RI TA 8 PH CH RI AR AR N- MA D CA CY [...] 20 DE ZA 11 11 11 RO OH 0 PH GE IN AR R E [...] 11 11 RI TA 8 PH CH RI AR AR N- MA D CA CY W FF OF 50 -3 CY 25 NT -4 HI 0 AN A CY 00 07 07 0 15 5 EA 23 SO Ac CL 37 -0 -[address] 16 KA ti OB 80 2- 2- 00 SI 72 N ve EN 75 20 20 DE BA ZA 11 11 11 BA OH 0 PH TU IN AR ND E [...] 11 11 RI TA 8 PH CH RI AR AR N- MA D CA CY [...] 11 11 RI TA 8 PH CH RI AR AR N- MA D CA CY [...] 11 II ID 0 PH I IN SD WI E MA LL 20 CY IA [...] 11 11 RI TA 8 PH CH RI AR AR N- MA D CA CY [...] UL CY E NT HI AN A OH 00 03 03 0 20 5 EA [...] CY NT TA HI B AN A OH 68 03 03 0 12 2 WA [...] R OF CY NT HI AN A OH 00 03 03 1 20 5 EA [...] 20 DE ZA 11 11 11 RI OH 0 PH CH IN AR AR E [...] 11 11 RI TA 8 PH CH RI AR AR N- MA D CA CY W FF OF 50 -3 CY 25 NT -4 HI 0 AN A OH 00 03 03 1 20 5 EA [...] 11 11 RI TA 8 PH CH RI AR AR N- MA D CA CY [...] 1 60 30 EA 20 CL Ac OH 09 -2 -[address] 97 AR [...] 11 11 RI TA 8 PH CH RI AR AR N- MA D CA CY [...] PS NT UL HI E AN A OH 00 09 09 1 30 7 EA [...]
--- OUTSIDE RECORDS SUMMARY | 2017-02-27 12:42 | External Medical Summary Rpt ---
Demographics Preferred Language Mongolian Marital Status Unknown Hoahaoism Affiliation Unknown Race Unknown Ethnic Group Unknown Author Author , Organization [employer] Address Unknown Phone Unavailable Purpose Continuity of Care Document - through 2016 Immunization No patient found.
--- OUTSIDE RECORDS SUMMARY | 2017-02-27 12:42 | External Medical Summary Rpt ---
Demographics Preferred Language Danish Marital Status Unknown Zoroastrian Affiliation Unknown Race Unknown Ethnic Group Unknown Author Author , Organization [employer] Address Unknown Phone Unavailable Purpose Continuity of Care Document - through 2016 Immunization No patient found.
[2017-02-27 12:46] LABS: URINE BILIRUBIN - DIPSTICK NEGATIVE (NEG); URINE BLOOD SMALL (NEG)
--- NOTE | 2017-02-27 13:22 | Emergency Room Report ---
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 N Clinical Suspician of Infection? N Mental Status: 1 - Regular (Normal Baseline) Sepsis Risk:Low Sepsis Risk Have you (or family members/close friends) recently traveled outside the [place]? N If Yes, where/when: Have you had exposure to infectious disease within the past month? TB? Other? Specify: Comment Patient complains of a 3 day history of LEFT flank pain. She thought she might have a urinary tract infection and presented to the urgent treatment center. She was found to have some microscopic hematuria and is sent to the emergency department for kidney stone workup. The patient says that she has interstitial cystitis and has had Botox injections into her bladder, therefore she was already having some urinary hesitancy, which is unchanged. No new urinary symptoms. She has had vomiting, but no fever. She says that she has had one suspected passed kidney stone. ALLERGIES Coded Allergies: Sulfa (Sulfonamide Antibiotics) (Mild, 02/27/17) codeine (Mild, 02/27/17) erythromycin base (Mild, 02/27/17) Home Medications Reported Medications Conjugated Estrogens (Premarin 0.625MG) 0.625 MG PO DAILY #30 History Medical History General CAD? No Angina: Yes IN: No Hypertension? Yes Hyperlipidemia? No CHF? No DVT? No PE? No COPD? No Asthma? No Anemia? No GERD? No Gastric ulcers? No GI Bleed? No Hernia? No Thyroid Problems? No Hypothyroidism? No CVA? No Seizures? Yes Diabetes? No Insulin Dependent: No Insulin Pump: No Home FSBS? No Renal Insuffiency? No End Stage Renal Disease? No UTI? Yes Stones? No BPH? No GB Disease: Yes Nephritic Syndrome? No Asplenia? No Hepatitis? Yes Sickle Cell Disease? No Arthritis? No Migraines? Yes Cataracts? No Glaucoma? No MRSA? Yes HIV? No TB? No Anxiety? Yes Depression? No Cancer? No More? Yes Additional hx: IBS Immunization Hx Ped.Immunizations UTD Yes DT/Tetanus 1-4 YRS Flu NEVER Pneumonia REFUSES Surgical Hx Previous Surgery?Y DX. 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 Musculoskeletal back pain Physical Exam Vital Signs Vital Signs Date Time Temp Pulse Resp B/P Pulse O2 O2 Flow FiO2 Ox Delivery Rate 02/27 1411 20 02/27 1256 99.0 87 18 101/57 95 02/27 1233 98.6 87 20 131/89 96 General Appearance normal appearance, WD/WN Eye Exam - bilateral eye normal exam, bilateral eye PERRL, bilateral eye EOMI Ear, Nose, Throat hearing grossly normal, normal ENT inspection Neck normal inspection, non-tender, supple, full range of motion Respiratory Status Yes: trachea midline, chest symmetrical, non tender chest. No: respiratory distress. Lung Sounds bilateral: normal breath sounds, lungs clear. 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 No Results/Orders Laboratory Tests 02/27/17 1310: Sodium 142, Potassium 3.8, Chloride 105, Carbon Dioxide 29, BUN 6 L, Creatinine 0.7, Estimated Creat Clear 89, Estimated GFR (MDRD) 96, Glucose 93, Calcium 8.9, Total Bilirubin 0.2, AST 15, ALT 22, Alkaline Phosphatase 52, Total Protein 7.2, Albumin 3.7, Globulin 3.5 H, Albumin/Globulin Ratio 1.1, Lipase 106, WBC 6.1, RBC 4.11 L, Hgb 12.5, Hct 37.6, MCV 91.3, RDW 13.2, Plt Count 249, MPV 7.1 L, Gran % 37.9, Gran # 2.3, Total Counted 100, Lymphocytes % 55.5 H, Monocytes % 4.7, Eosinophils % 1.6, Basophils % 0.3, Neutrophils 30 L, Lymphocytes (Manual) 60 H, Lymphocytes # 3.4, Monocytes (Manual) 9, Monocytes # 0.3, Eosinophils # 0.1, Eosinophils # (Manual) 1, Basophils # 0.0, Platelet Estimate NORMAL, PUBS MCHC 33.1, MCH 30.2 02/27/17 1232: Urine Color YELLOW, Urine Appearance CLEAR, Urine pH 6.5, Ur Specific Henderson 1.020, Urine Protein NEGATIVE, Urine Ketones NEGATIVE, Urine Blood SMALL, Urine Nitrate NEGATIVE, Urine Bilirubin NEGATIVE, Urine Urobilinogen 0.2, Ur Leukocyte Esterase NEGATIVE, Urine Glucose NEGATIVE 02/27/17 1232: Urine Color Cancelled, Urine Appearance Cancelled, Urine pH Cancelled, Ur Specific Henderson Cancelled 02/27/17 1230: Urine Color YELLOW, Urine Appearance CLEAR, Urine pH 6.5, Ur Specific Henderson 1.015, Urine Protein NEGATIVE, Urine Ketones NEGATIVE, Urine Blood 1+ H, Urine Nitrate NEGATIVE, Urine Bilirubin NEGATIVE, Urine Urobilinogen 0.2, Ur Leukocyte Esterase NEGATIVE, Urine RBC OCC, Urine WBC 3-5, Ur Squamous Epith Cells 5-10, Urine Bacteria 2+, Urine Glucose NEGATIVE Current Medication Orders Sig/Michelle Start time Last Medication Dose Route Stop Time Status Admin Ketorolac 30 MG ONCE ONE 02/27 1415 DC 02/27 Tromethamine IV 02/27 1416 1411 Ondansetron HCl 4 MG ONCE ONE 02/27 1415 DC 02/27 IV 02/27 1416 1410 Ondansetron HCl 0 .STK-MED ONE 02/27 1409 DC .ROUTE Ketorolac 0 .STK-MED ONE 02/27 1408 DC Tromethamine .ROUTE Sodium Chloride 10 ML PRN PRN 02/27 1315 AC IV 02/28 1302 Orders Procedure Date/time Status DIET-NOTHING BY MOUTH 02/27 D Active URINALYSIS/COMPLETE 02/27 1322 Complete DIFFERENTIAL-WBC 02/[address] ABD/PELVIS REQ 02/27 1302 Active IV SALINE LOCK 02/27 1302 Active LIPASE 02/27 1302 Complete CBC WITH AUTO DIFF 02/27 1302 Complete CHEM 12 PROFILE 02/27 1302 Complete UTC URINE DIPSTICK 02/27 1232 Complete CULTURE, URINE 02/27 1230 Active XRAY/CT/US XRAY/CT/US CT abdomen, pelvis Comment CT scan interpreted by radiologist: Negative Departure Departure Disposition DC Home or Self Care(routine) Clinical Impression Primary Impression: Back pain Qualifiers: Back pain location: low back pain Chronicity: acute Back pain laterality: left Sciatica presence: without sciatica Qualified Code: M54.5 - Low back pain Secondary Impressions: Vomiting Qualifiers: Vomiting type: unspecified Vomiting Intractability: non-intractable Nausea presence: with nausea Qualified Code: R11.2 - Nausea with vomiting, unspecified Condition STABLE Patient Instructions DI for Low Back Pain, DI for Vomiting -- Adult Additional Instructions Additional instructions for BACK PAIN: See your physician as soon as possible for further evaluation. Return immediately if back pain becomes intolerable, or if fever, numbness or weakness of your legs, loss of control of your bowels or bladder. Prescriptions Current Visit Scripts Naproxen (Naprosyn 500MG Tab) 500 MG PO BID #14 TAB PROMETHAZINE HCL (Phenergan 25MG Tab (Geq)) 25 MG PO Q6HP PRN N/V #14 TAB Methocarbamol (Robaxin 750MG) 750 MG PO TIDP PRN back pain #20 TAB ED Critical Care Critical Care No at [id number]
[2017-02-27 13:27] LABS: LYMPH # 3.4 K/mm3 (0.7-4.5); LYMPH % 55.5 % (10-50.0)
[2017-02-27 13:39] LABS: URINE BILIRUBIN - DIPSTICK NEGATIVE (NEG); URINE BLOOD 1+ (NEG)
[2017-02-27 13:42] LABS: HEMOGLOBIN 12.5 g/dL (12.2-16.2)
[2017-02-27 13:54] LABS: NEUTROPHILS 30 % (42-76)
--- NOTE | 2017-02-27 14:06 | RADIOLOGY REPORT PS360 ---
CT ABD PELVIS W/O CONTRAST CLINICAL INDICATION: Left flank pain with hematuria LEFT FLANK PAIN ORDERING PHYSICIAN: Blu Flowers MD PATIENT AGE: 32 years COMPARISON: 03/23/2016 TECHNIQUE: Axial images obtained with sagittal and coronal reformats. PROCEDURE: Oral Contrast: None IV Contrast: None . FINDINGS: The lung bases are clear. There has been a prior cholecystectomy. The liver, spleen, adrenal glands, and pancreas are unremarkable. Common bile duct is somewhat prominent but may be related to physiologic changes from the prior cholecystectomy and is not significantly changed from 03/23/2016. No hydronephrosis. No renal or ureteral calculi. Unremarkable appearing urinary bladder. No evidence of appendicitis or diverticulitis. No abnormal fluid collections. There has been a prior hysterectomy. No acute bony anomalies. IMPRESSION: 1. No acute intra-abdominal or pelvic pathology. 2. No evidence of obstructing renal or ureteral calculi.
[2017-02-27] MEDS ORDERED: ROBAXIN-750750 MG PO (14:22)
[2017-02-27] MEDS ORDERED: PHENERGAN25 M3 PO (14:22)
[2017-02-27] MEDS ORDERED: NAPROSYN500 M1 PO (14:22)
[2017-02-27 14:33] VITALS: BP 92/57
== END 2017-02-27 14:35 | disposition home or self-care (01) ==
LOC: UTC 12:26 → ER 12:29
PROVIDERS: Emergency Medicine; Nurse Practitioner Family
DX: M54.5 Low back pain (principal); R11.2 Nausea with vomiting, unspecified; I10 Essential (primary) hypertension; Z72.0 Tobacco use
CPT/HCPCS: J2405

== ENCOUNTER 2017-05-26 14:59 | Emergency (ER) | payer MEDICAID ==
[~2017-05-26] VITALS: Ht 167.6 cm; Wt 53.5 kg
[2017-05-26 15:32] VITALS: BP 111/85
--- NOTE | 2017-05-26 15:32 | [facility] Report ---
History of Present Issue Date/Time Seen by Provider 05/26/17 1508 Visit Reason Pt arrived:Walked Presenting Problem:PT C/O RIGHT EAR PAIN Location if Accident: Onset of symptoms date/time:/ or onset unknown for:MEDICAL HX UNKNOWN Have you (or family members/close friends) recently traveled outside the [place]? N If Yes, where/when: Have you had exposure to infectious disease within the past month? TB? Other? Specify: Presents with with c/o headache, sinus pressure, sore throat, cough and nausea without vomiting that started approximately 2 weeks ago. Patient states that today she has a sharp pain of her right ear. Denies ear drainage. Source patient Exam Limitations no limitations ALLERGIES Coded Allergies: Sulfa (Sulfonamide Antibiotics) (Mild, 02/27/17) codeine (Mild, 02/27/17) erythromycin base (Mild, 02/27/17) Home Medications Active Scripts Naproxen (Naprosyn 500MG Tab) 500 MG PO BID #14 TAB Prov: 02/27/17 PROMETHAZINE HCL (Phenergan 25MG Tab (Geq)) 25 MG PO Q6HP PRN N/V #14 TAB Prov: 02/27/17 Methocarbamol (Robaxin 750MG) 750 MG PO TIDP PRN back pain #20 TAB Prov: 02/27/17 Reported Medications Conjugated Estrogens (Premarin 0.625MG) 0.625 MG PO DAILY #30 History Medical History General CAD? No Angina: Yes NM: No Hypertension? Yes Hyperlipidemia? No CHF? No DVT? No PE? No COPD? No Asthma? No Anemia? No GERD? No Gastric ulcers? No GI Bleed? No Hernia? No Thyroid Problems? No Hypothyroidism? No CVA? No Seizures? Yes Diabetes? No Insulin Dependent: No Insulin Pump: No Home FSBS? No Renal Insuffiency? No UTI? Yes Stones? No BPH? No GB Disease: Yes Nephritic Syndrome? No Asplenia? No Hepatitis? Yes Sickle Cell Disease? No Arthritis? No Migraines? Yes Cataracts? No Glaucoma? No MRSA? Yes HIV? No TB? No Anxiety? Yes Depression? No Cancer? No More? Yes Additional hx: IBS Immunization HX DT/Tetanus 1-4 YRS Flu NEVER Pneumonia REFUSES Surgical Hx Previous Surgery?Y DX. LAP X 6 X 2 Orthopedic X 3 IUD PLACEMENT /REMOVAL [place] NASAL RECONSTRUCTION HYSTERECTOMY BOTOX TO BLADDER [employer] Hx LMP N/A Family History Family HX Diabetes Yes CAD No Hypertension Yes Hyperlipidemia Yes Cancer Yes TB No Social History Smoking Hx Smoker: Current Every Day Smoker Tobacco: Yes Type Cigarettes Packs/day < 1 Pack Alcohol Alcohol: No Review of Systems All Other Systems Reviewed and Negative Constitutional chills, fever Eyes denies drainage ENT ear pain (right), nose discharge, nose congestion, throat pain. denies: throat swelling. Respiratory cough (dry), denies shortness of breath, denies wheezing Physical Exam Vital Signs Vital Signs Date Time Temp Pulse Resp B/P Pulse O2 O2 Flow FiO2 Ox Delivery Rate 05/26 1532 97.8 67 20 111/85 97 05/26 1503 97.8 67 20 111/ 97 General Appearance normal appearance, WD/WN, no apparent distress Eye Exam - bilateral eye PERRL Ear, Nose, Throat bilateral maxillary sinuses moderately TTP; thick yellow PND; posterior pharynx moderately erythematous; no tonsillar exudate Neck non-tender, full range of motion, bilateral anterior cervical adenopathy Respiratory Status Yes: chest symmetrical. No: respiratory distress, non tender chest. Lung Sounds bilateral: normal breath sounds. Cardiovascular normal exam, regular rate/rhythm, no peripheral edema, no murmur Neurologic alert, oriented x 3 Mental status normal mood/affect Skin normal color, warm/dry Medical Decision Making LABS/Meds/Orders Pt receiving controlled substance in ED? No Departure Departure Time of Disposition 1524 Disposition DC Home or Self Care(routine) Clinical Impression Primary Impression: Acute sinusitis Qualifiers: Sinusitis location: maxillary Recurrence: not specified as recurrent Qualified Code: J01.00 - Acute maxillary sinusitis, unspecified Secondary Impressions: Acute serous otitis media of right ear without rupture Condition STABLE Referrals Maninder ROACH,Jovon Menezes (Family) Patient Instructions DI for Ear Pain-Adult, DI for Sinusitis Additional Instructions Increase fluid intake and rest. May apply compresses to right ear. Over the counter ibuprofen and/or Tylenol as needed for pain/discomfort. Do not insert objects or liquid into ears. Take medications as directed. If symptoms persist or worsen follow-up with primary care provider for further evaluation. Discharge Counseling Counseled pt/family regarding diagnosis, test results, medications/RX, home care, follow up needs Prescriptions Current Visit Scripts Amoxicillin/Potassium Clav (Augmentin 875-125 Tablet) 1 EACH PO Q12 #20 TAB take 1 tablet every 12 hours for 10 days Fluticasone Propionate (Flonase 50 Mcg Nasal [place]) 1 SPRAY NA DAILY #1 BOT 1 spray to each nostril daily PROMETHAZINE HCL (Promethazine 25mg Tab) 25 MG PO Q6HP PRN nausea/vomiting #20 TAB take 1 tablet every 6 hours as needed for nausea or vomiting at 9383
--- OUTSIDE RECORDS SUMMARY | 2017-06-05 22:41 | External Medical Summary Rpt | CCD ---
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 CYSTITIS [facility] 7880 RENAL COLIC 09-21-2007 [facility] V6700 FOLLOW-UP 09-02-2007 [facility] FOLLOWING CLIN[facility] OF UNSPEC [facility] [id number] Acute [facility] Allergies, Adverse Reactions, Alerts Type Drug Allergy [...] ia de te s n re d MA 30 30 00 HO Ac EM 04 -2 -2 .0 00 ME ti AR 61 4- 9- 00 06 TO ve IN 06 14 20 09 WN 28 17 17 30 0. 1 24 PH 62 AR 5 MA MG CY TA OF BL ET CY NT HI AN A MA 30 30 00 HO Ac EM 04 -1 -1 .0 00 ME ti AR 61 8- 8- 00 06 TO ve IN 06 14 20 06 WN 28 17 17 95 0. 1 19 PH 62 AR 5 MA MG CY TA OF BL ET CY NT HI AN A NA 68 07 08 14 7 00 HO Ac MA 46 -0 -0 .0 00 ME ti OX 20 5- 4- 00 06 TO ve EN 19 20 20 09 WN 00 17 17 01 50 5 96 PH 0 AR MG MA CY TA BL OF ET CY NT HI AN A MA 68 07 08 14 4 00 HO Ac OM 00 -0 -0 .0 00 ME ti ET 10 5- 4- 00 06 TO ve URBINA 16 20 20 09 WN ZI 20 17 17 01 NE 8 95 PH AR 25 MA CY MG OF TA BL CY ET NT HI AN A ME 31 07 08 20 7 00 HO Ac TH 72 -0 -0 .0 00 ME ti OC 20 5- 4- 00 06 TO ve AR 53 20 20 09 WN BA 40 17 17 01 MO 5 94 PH L AR 75 MA 0 CY MG OF TA BL CY ET NT HI AN A MA 00 05 06 30 30 00 HO Ac EM 04 -3 -3 .0 00 ME ti AR 61 0- 0- 00 06 TO ve IN 10 20 20 06 WN 28 17 17 95 0. 1 19 PH 62 AR 5 MA MG CY TA OF BL ET CY NT HI AN A MA 00 04 05 30 30 00 HO Ac EM 04 -2 -2 .0 00 ME ti AR 61 5- 6- 00 06 TO ve IN 10 20 20 06 WN 28 17 17 95 0. 1 19 PH 62 AR 5 MA MG CY TA OF BL ET CY NT HI AN A MA 00 03 04 30 30 00 HO Ac EM 04 -0 -0 .0 00 ME ti AR 61 3- 7- 00 06 TO ve IN 10 20 20 06 WN 28 17 17 95 0. 1 19 PH 62 AR 5 MA MG CY TA OF BL ET CY NT HI AN A MA 00 01 02 30 30 00 HO Ac EM 04 -1 -1 .0 00 ME ti AR 61 7- 7- 00 06 TO ve IN 10 20 20 06 WN 28 17 17 95 0. 1 19 PH 62 AR 5 MA MG CY TA OF BL ET CY NT HI AN A MA 00 01 02 12 3 00 HO Ac OM 60 -0 -0 .0 00 ME ti ET 35 4- 3- 00 06 TO ve URBINA 43 20 20 07 WN ZI 83 17 17 89 NE 0 22 PH AR 25 MA CY MG OF TA BL CY ET NT HI AN A MA 00 12 01 30 30 00 HO Ac EM 04 -0 -1 .0 00 ME ti AR 61 7- 3- 00 06 TO ve IN 10 20 20 06 WN 28 16 17 95 0. 1 19 PH 62 AR 5 MA MG CY TA OF BL ET CY NT HI AN A SO 00 02 0 No DI 40 -1 UM 97 8- Lo 98 20 ng CH 30 14 er LO 9 RI Ac DE ti ve 0. 9% SO [place] TI ON Sa 63 02 1 No li 80 -1 ne 70 8- Lo 10 20 ng Fl 07 14 er us 5 h Ac 10 ti ML ve Sy ri ng e DI 00 02 0 No PH 40 -1 EN 92 8- Lo HY [address] 03 14 er AM 1 IN Ac E ti 50 ve MG /M L SY RN G KE 00 02 0 No TO 40 -1 RO 93 8- Lo LA 79 20 ng C 50 14 er 30 1 Ac MG ti /M ve L AL MA 55 02 0 No OC 39 -1 HL 00 8- Lo OR 07 20 ng PE 71 14 er RA 0 ZI Ac NE ti ve 10 MG /2 ML VL Sa 63 02 1 No li 80 -1 ne 70 8- Lo 10 20 ng Fl 07 14 er us 5 h Ac 10 ti ML ve Sy ri ng e Sa 63 12 0 No li 80 -0 ne 70 1- Lo 10 20 ng Fl 07 13 er us 5 h Ac 10 ti ML ve Sy ri ng e KE 00 12 0 No TO 40 -0 RO 93 1- Lo LA 79 20 ng C 50 13 er 30 1 Ac MG ti /M ve L AL LO 00 12 0 No RA 64 -0 ZE 16 1- Lo PA 04 20 ng M 82 13 er 2 5 MG Ac /M ti L ve AL TR 00 12 0 No AM 09 -0 AD 30 1- Lo OL 05 20 ng 80 13 er 50 1H MG Ac ti TA ve BL ET TA KE HO ME HY [address] 40 -0 OC 60 1- Lo OD 36 20 ng ON 56 13 er -A 2 CE Ac TA ti OR ve NO PH EN 5- 32 5 Sa 63 12 0 No li 80 -0 ne 70 1- Lo 10 20 ng Fl 07 13 er us 5 h Ac 10 ti ML ve Sy ri ng e TR 00 12 0 No AM 09 -0 AD 30 1- Lo OL 05 20 ng 80 13 er 50 1H MG Ac ti TA ve BL ET TA KE HO ME HY [address] 40 [...] /2 ve 4H R PA TC H NI 00 08 0 No CO 06 [...] ve /M L CA RP UJ CT IN 00 08 4 No VA 00 -0 NZ 63 9- Lo 1 84 20 ng 57 13 er GM 1 Ac AD ti D- ve VA NT AG E AL Mo 00 08 0 No rp 40 -0 hi 91 9- Lo ne 25 20 ng 83 13 er 4M 0 G/ Ac Ml ti ve Sy ri ng e SO 00 08 4 No DI 40 -0 UM 97 9- Lo 98 20 ng CH 30 13 er LO 9 RI Ac DE ti ve 0. 9% SO [place] TI ON Mo 00 08 0 No rp 40 -0 hi 91 9- Lo ne 25 20 ng 83 13 er 4M 0 G/ Ac Ml ti ve Sy ri ng e MA 00 08 4 No OM 64 -0 ET 11 9- Lo URBINA 49 20 ng ZI 53 13 er NE 5 Ac 25 ti ve MG /M L AM PU L HY [address] 40 -0 OM 91 9- Lo OR 31 20 ng PH 23 13 er ON 0 E Ac 2 ti MG ve /M L CA RP UJ CT LA [address] 40 -0 AT 97 2- Lo ED 95 20 ng 30 13 er RI 9 NG Ac ER ti S ve IN JE CT IO N Sa 63 08 0 No li 80 -0 ne 70 2- Lo 10 20 ng Fl 07 13 er us 5 h Ac 10 ti ML ve Sy ri ng e ON 00 08 0 No DA 64 -0 NS 16 2- Lo ET 08 20 ng RO 02 13 er N 5 HC Ac L ti 4 ve MG /2 ML AL Mo 00 08 0 No rp 40 -0 hi 91 2- Lo ne 26 20 ng 06 13 er 8M 9 G/ Ac Ml ti ve Sy ri ng e GA [address] 27 -0 RO 00 2- Lo GR 44 20 ng AF 53 13 er IN 5 Ac 66 ti -1 ve 0 SO [place] TI ON Mo 00 08 0 No rp 40 -0 hi 91 2- Lo ne 26 20 ng 06 13 er 8M 9 G/ Ac Ml ti ve Sy ri ng e RA 00 08 0 No D- 27 -0 IS 01 2- Lo OV 31 20 ng UE 63 13 er -3 5A 70 Ac ; ti 10 ve 0M L RA 63 08 0 No D- 80 -0 SA 70 2- Lo LI 10 20 ng NE 07 13 er 5A FL Ac US ti H ve 10 ML SY RI NG E LE 68 08 0 No VO 08 -0 FL 40 2- Lo OX 48 20 ng AC 30 13 er IN 1 Ac 75 ti 0 ve MG TA BL ET HY [address] 40 -0 OC 60 2- Lo OD 36 20 ng ON 56 13 er -A 2 CE Ac TA ti OR ve NO PH EN 5- 32 5 Sa 63 08 0 No li 80 -0 ne 70 2- Lo 10 20 ng Fl 07 13 er us 5 h Ac 10 ti ML ve Sy ri ng e Mo 00 [...] Ml ti ve Sy ri ng e RA 00 08 0 No D- 27 -0 IS 01 2- Lo OV 31 20 ng UE 63 13 er -3 5A 70 Ac ; ti 10 ve 0M L RA 63 08 0 No D- 80 -0 SA 70 2- Lo LI 10 20 ng NE 07 13 er 5A FL Ac US ti H ve 10 ML SY RI NG E SO 00 04 0 No DI 40 -1 UM 97 9- Lo 98 20 ng CH 30 13 er LO 9 RI Ac DE ti ve 0. 9% SO [place] TI ON Sa 63 04 0 No li 80 -1 ne 70 9- Lo 10 20 ng Fl 07 13 er us 5 h Ac 10 ti ML ve Sy ri ng e ON 00 04 0 No DA 64 -1 NS 16 9- Lo ET 08 20 ng RO 02 13 er N 5 HC Ac L ti 4 ve MG /2 ML AL HY [address] 07 -1 OC 90 9- Lo OD 78 20 ng ON 05 08 er E/ 9H AP Ac AP ti ve 5/ 50 0M G TA KE Sa 63 04 0 No li 80 -1 ne 70 9- Lo 10 20 ng Fl 07 13 er us 5 h Ac 10 ti ML ve Sy ri ng e HY [address] 07 -1 OC 90 9- Lo OD 78 20 ng ON 05 08 er E/ 9H AP Ac AP ti ve 5/ 50 0M G TA KE SO 00 02 0 No DI 40 -2 UM 97 2- Lo 98 20 ng CH 30 13 er LO 9 RI Ac DE ti ve 0. 9% SO [place] TI ON Sa 63 02 0 No li 80 -2 ne 70 2- Lo 10 20 ng Fl 07 13 er us 5 h Ac 10 ti ML ve Sy ri ng e ON 00 02 0 No DA 64 -2 NS 16 2- Lo ET 08 20 ng RO 02 13 er N 5 HC Ac L ti 4 ve MG /2 ML AL 65 10 10 0 9. 3 EA 24 OR Ac 16 -3 -[address] 72 CH ti 20 1- 1- 0 SI 57 EL ve 52 20 20 DE MA 01 11 11 N 0 PH ANA MARÍA AR HN MA D CY OF CY NT HI AN A MA 16 10 10 0 90 30 EA 24 OR Ac OP 71 -3 -[address] 72 CH ti RA 40 1- 1- 00 SI 56 EL ve NO 02 20 20 DE MA LO 10 11 11 N L 4 PH ANA MARÍA 10 AR HN MA D MG CY TA OF BL ET CY NT HI AN A GA 16 10 10 0 90 30 EA 24 OR Ac BA 71 -3 -[address] 72 CH ti PE 40 1- 1- 00 SI 55 EL ve NT 66 20 20 DE MA IN 30 11 11 N 2 PH ANA MARÍA 40 AR HN 0 MA D MG CY CA OF PS UL CY E NT HI AN A SE 00 10 10 0 30 30 EA 24 OR Ac RO 31 -2 -[address] 72 CH ti QU 00 8- 1- 00 SI 54 EL ve EL 28 20 20 DE MA 36 11 11 N XR 0 PH ANA MARÍA AR HN 30 MA D 0 CY MG OF TA BL CY ET NT HI AN A OR 00 10 10 0 30 30 EA [...] 11 11 RI TA 8 PH CH OR AR AR N- MA D CA CY [...] 5 60 30 EA 23 CL Ac MA 18 -3 -[address] 89 AR [...] 11 11 RI TA 8 PH CH OR AR AR N- MA D CA CY [...] .0 ST 13 IN ti OF 11 8- 8- 00 SI 79 EY ve EN 78 20 20 DE AC 90 11 11 OR 1 PH CH SO AR AE D MA L EC CY S 75 OF MG CY NT TA HI B AN A CY 00 09 09 0 14 7 EA 24 GA Ac CL 37 -1 -[address] 13 IN ti OB 80 8- 8- 00 SI 78 EY ve EN 75 20 20 DE ZA 11 11 11 OR MA 0 PH CH IN AR AE E [...] 11 11 RI TA 8 PH CH OR AR AR N- MA D CA CY [...] 5 60 30 EA 23 CL Ac MA 18 -3 -[address] 89 AR ti OP 50 0- 0- 00 SI 06 KE ve IO 41 20 20 DE N 50 11 11 DE HC 5 PH RE L AR K SR MA J CY 15 0 OF MG CY TA NT BL HI ET AN A MA 00 08 08 1 12 3 EA 23 CL Ac OM 78 -2 -[address] 78 AR ti ET 11 3- 3- 00 SI 22 KE ve URBINA 83 20 20 DE ZI 01 11 11 DE NE 0 PH RE AR K 25 MA J CY MG OF TA BL CY ET NT HI AN A 65 08 08 1 9. 3 EA 23 CL Ac 16 -2 -[address] 75 AR ti 20 1- 1- 0 SI 02 KE ve 52 20 20 DE 01 11 11 DE 0 PH RE AR K MA J CY OF CY NT HI AN A CI 16 08 08 0 10 5 EA 23 CL Ac MA 71 -2 -[address] 75 AR ti OF 40 1- 1- 00 SI 01 KE ve LO 65 20 20 DE XA 20 11 11 DE CI 4 PH RE N AR K HC MA J L CY 50 0 OF MG CY TA NT B HI AN A MA 00 08 08 0 12 3 EA [...] 0 10 5 EA 23 WE Ac MA 71 -1 -[address] 69 HR ti OF 40 7- 7- 00 SI 67 MA ve LO 65 20 20 DE N XA 10 11 11 II CI 2 PH I N AR WI HC MA LL L CY IA 25 M 0 OF E MG CY TA NT B HI AN A BU 00 05 08 5 60 15 EA 22 AR Ac TA 60 -0 -[address] 37 NO ti LB 32 3- 4- 00 SI 58 LD ve -A 54 20 20 DE CE 42 11 11 RI TA 8 PH CH OR AR AR N- MA D CA CY [...] 11 11 RI TA 8 PH CH OR AR AR N- MA D CA CY [...] 20 DE ZA 11 11 11 RO MA 0 PH GE IN AR R E [...] 11 11 RI TA 8 PH CH OR AR AR N- MA D CA CY W FF OF 50 -3 CY 25 NT -4 HI 0 AN A CY 00 07 07 0 15 5 EA 23 SO Ac CL 37 -0 -[address] 16 KA ti OB 80 2- 2- 00 SI 72 N ve EN 75 20 20 DE BA ZA 11 11 11 BA MA 0 PH TU IN AR ND E [...] 11 11 RI TA 8 PH CH OR AR AR N- MA D CA CY [...] 11 11 RI TA 8 PH CH OR AR AR N- MA D CA CY [...] BL CY ET NT HI AN A 65 05 05 0 6. 2 EA 22 WE Ac 16 -1 -[address] 60 HR ti 20 9- 9- 0 SI 74 MA ve 52 20 20 DE N 01 11 11 II 0 PH I AR WI MA LL CY IA M OF E CY NT HI AN A NI 47 05 [...] 11 11 RI TA 8 PH CH OR AR AR N- MA D CA CY [...] UL CY E NT HI AN A SE 51 03 [...] CY NT TA HI B AN A MA 00 03 03 0 20 5 EA 21 CL Ac OM 78 -2 -[address] 87 AR ti ET 11 8- 8- 00 SI 31 KE ve URBINA 83 20 20 DE ZI 01 11 11 DE NE 0 PH RE AR K 25 MA J CY MG OF TA BL CY ET NT HI AN A MA 68 03 03 0 12 2 WA 71 GR Ac OM 38 -1 -2 .0 L- 12 AY ti ET 20 3 6 00 MA 79 ve URBINA 04 20 20 RT 7 RO ZI 10 11 11 BE NE 1 PH RT AR B 25 MA CY MG # TA 10 BL 05 ET 91 00 03 03 0 23 6 EA 21 CIARA Ac 59 -2 -[address] 81 UL ti 10 3 3 00 SI 58 AN ve 34 20 20 DE GE 90 11 11 R 1 PH BE AR RN MA AR CY D R OF CY NT HI AN A MA 00 03 03 1 20 5 EA 21 CL Ac OM 78 -0 -[address] 48 AR ti ET 11 SI 16 KE ve URBINA 83 20 20 DE ZI 01 11 11 DE NE 0 PH RE AR K 25 MA J CY MG OF TA BL CY ET NT HI AN A CY 00 03 03 1 60 20 EA 21 AR Ac CL 37 -1 -[address] 68 NO ti OB 80 4 4 00 SI 43 LD ve EN 75 20 20 DE ZA 11 11 11 RI MA 0 PH CH IN AR AR E MA D 10 CY W MG OF TA CY BL NT ET HI AN A OX 00 03 03 0 16 2 EA 21 AI Ac YC 40 -0 -[address] 62 TC ti OD 60 9 9 00 SI 87 HI ve ON 55 20 20 DE SO E 20 11 11 N HC 1 PH SA L AR MA 5 MA NT MG CY URBINA H TA OF BL ET CY NT HI AN A SM 49 03 03 1 44 7 EA 21 WR Ac 34 -0 -[address] 62 IG ti SA 80 9 9- 00 SI 86 HT ve LI [...] N OF CY NT HI AN A CE 00 [...] E NT HI AN A BU 00 01 03 2 60 15 EA 20 AR Ac TA 60 -2 -[address] 94 NO ti LB 32 5- 7- 00 SI 56 LD ve -A 54 20 20 DE CE 42 11 11 RI TA 8 PH CH OR AR AR N- MA D CA CY W FF OF 50 -3 CY 25 NT -4 HI 0 AN A MA 00 03 03 1 20 5 EA [...] CY OF CY NT HI AN A 65 02 02 0 6. 3 EA 21 GR Ac 16 -2 -[address] 36 AY ti 20 3- 3- 0 SI 82 ve 52 20 20 DE RO 01 11 11 BE 0 PH RT AR B MA CY OF CY NT HI AN A [...] 11 11 RI TA 8 PH CH OR AR AR N- MA D CA CY W FF OF 50 -3 CY 25 NT -4 HI 0 AN A NA 00 01 01 1 60 30 EA 20 CL Ac MA 09 -2 -[address] 97 AR [...] 11 11 RI TA 8 PH CH OR AR AR N- MA D CA CY W FF OF 50 -3 CY 25 NT -4 HI 0 AN A 60 01 01 1 24 6 EA 20 AR Ac 25 -2 -[address] 94 NO ti 80 5- 5- 00 SI 55 LD ve 23 20 20 0 DE 91 11 11 RI 6 PH CH AR AR MA D CY W OF CY NT HI AN A AZ 00 [...] W OF CY NT HI AN A MA 00 09 09 1 30 7 EA 19 AR Ac OM 78 -1 -[address] 07 NO ti ET 11 0- 0- 00 SI 77 LD ve URBINA 83 20 20 DE ZI 01 10 10 RI NE 0 PH CH AR AR 25 MA D CY W MG OF TA BL CY ET NT HI AN A CL 63 09 [...] PS NT UL HI E AN A 60 06 06 1 24 6 EA 17 AR Ac 25 -0 -[address] 81 NO ti 80 1- 1- 00 SI 50 LD ve 23 20 20 0 DE 91 10 10 RI 6 PH CH AR AR MA D CY W OF CY NT HI AN A LI 00 06 06 1 10 2 EA 17 AR Ac DO 60 -0 -[address] 81 NO ti CA 31 1- 1- 00 SI 49 LD ve IN 39 20 20 0 DE E 36 10 10 RI 2% 4 PH CH AR AR MA D SC CY W OU S OF SO LN CY NT HI AN A DO 53 06 [...] CA HI P AN A LI 00 05 05 1 [...] BL CY ET NT HI AN A TR 65 12 02 01 12 30 EA 15 OR Ac AM 16 -3 -[address] 78 CK ti AD 20 0- 1- 00 SI 01 ve OL 62 20 20 0 DE GR 71 09 10 EG HC 1 PH OR L AR Y 50 MA E CY MG OF TA CY BL NT ET HI AN A TR 65 12 01 00 12 30 EA 15 OR Ac AM 16 -3 -[address] 78 CK ti AD 20 0- 4- 00 SI 01 ve OL 62 20 20 0 DE GR 71 09 10 EG HC 1 PH OR L AR Y 50 MA E CY MG OF TA CY BL NT ET HI AN A TI 00 11 01 01 90 30 EA 15 GI Ac ZA 18 -0 -[address] 01 LB ti NI 54 5- 4- 00 SI 36 ER ve DI 40 20 20 DE T NE 02 09 10 ANA MARÍA 3 PH HN HC AR W L MA 4 CY MG OF TA CY BL NT ET HI AN A TR 65 10 12 01 90 30 EA 14 GI Ac AM 16 -2 -[address] 81 LB ti AD 20 2- 3- 00 SI 15 ER ve OL 62 20 20 DE T 71 09 09 ANA MARÍA HC 1 PH HN L AR W 50 MA CY MG OF TA CY BL NT ET HI AN A TI 00 11 11 00 90 30 EA 15 GI Ac ZA 18 -0 -[address] 01 LB ti NI 54 5- 9- 00 SI 36 ER ve DI 40 20 20 DE T NE 02 09 09 ANA MARÍA 3 PH HN HC AR W L MA 4 CY MG OF TA CY BL NT ET HI AN A 68 11 11 00 20 10 EA 15 AR Ac 82 -1 -[address] 07 NO ti 00 0- 9- 00 SI 22 LD ve 06 20 20 DE 30 09 09 RI 9 PH CH AR AR MA D CY W OF CY NT HI AN A TR 65 10 11 00 90 30 EA 14 GI Ac AM 16 -2 -[address] 81 LB ti AD 20 2- 5- 00 SI 15 ER ve OL 62 20 20 DE T 71 09 09 ANA MARÍA HC 1 PH HN L AR W 50 MA CY MG OF TA CY BL NT ET HI AN A LI 63 10 11 00 90 30 EA 14 GI Ac DO 48 -2 -[address] 81 LB ti DE 10 2- 5- 00 SI 14 ER ve RM 68 20 20 DE T 70 09 09 ANA MARÍA 5% 6 PH HN AR W PA MA TC CY H OF CY NT HI AN A 00 07 07 00 60 15 CL 19 AR Ac 55 -1 -3 .0 IN 70 NO ti 50 3- 0- 00 IC 90 LD ve 58 20 20 50 09 09 PH RI 2 AR CH MA AR CY D W CY 00 07 07 00 40 13 EA 13 AR Ac CL 59 -1 -[address] 48 NO ti OB 15 4- 0- 00 SI 28 LD ve EN 65 20 20 DE ZA 80 09 09 RI MA 1 PH CH IN AR AR E MA D 10 CY W MG OF CY TA NT BL HI ET AN A NI 00 07 07 00 20 10 EA 13 AR Ac TR 18 -0 -[address] 35 NO ti OF 50 2- 6- 00 SI 76 LD ve UR 12 20 20 DE AN 20 09 09 RI TO 1 PH CH IN AR AR MA D MO CY W NO -M OF CR CY NT 10 HI 0 AN MG A ME 50 07 07 00 30 10 EA 13 AR Ac TR 11 -0 -[address] 35 NO ti ON 10 2- 6- 00 SI 77 LD ve ID 33 20 20 DE AZ 40 09 09 RI OL 1 PH CH E AR AR 50 MA D 0 CY W MG OF TA CY BL NT ET HI AN A 60 07 07 00 30 5 EA 13 URBINA Ac 95 -0 -[address] 41 RP ti 10 7- 6- 00 SI 31 EL ve 79 20 20 DE 77 09 09 GE 0 PH RA AR LD MA R CY OF CY NT HI AN A CY 00 05 06 00 30 15 EA 12 CA Ac CL 59 -2 -[address] ti OB 15 7- 4- 00 SI 72 IL ve EN 65 20 20 DE LO ZA 80 09 09 MA 1 PH JR IN AR J E MA V 10 CY MG OF CY TA NT BL HI ET AN A 00 05 06 00 30 5 EA 12 CA Ac 40 -2 -[address] ti 61 7- 4- 00 SI 73 IL ve 77 20 20 DE LO 20 09 09 5 PH JR AR J MA V CY OF CY NT HI AN A 00 05 06 00 20 5 EA 12 URBINA Ac 60 -1 -[address] 77 RP ti 35 6- 4- 00 SI 30 EL ve 46 20 20 DE 82 09 09 GE 8 PH RA AR LD MA R CY OF CY NT HI AN A TE 51 05 06 00 45 7 EA 12 URBINA Ac RC 67 -1 -[address] 77 RP ti ON 21 7- 4- 00 SI 60 EL ve AZ 30 20 20 DE OL 40 09 09 GE E 6 PH RA 0. AR LD 4% MA R CY CR EA OF M CY NT HI AN A 00 02 05 03 1. 30 CL 18 CL Ac 30 -0 -2 00 IN 71 AR ti 03 6- 1- 0 IC 66 KE ve 64 20 20 10 09 09 PH DE 1 AR RE MA K CY J 00 05 05 00 30 4 EA 12 CL Ac 59 -0 -[address] 58 AR ti 10 2- 1- 00 SI 83 KE ve 34 20 20 DE 90 09 09 DE 1 PH RE AR K MA J CY OF CY NT HI AN A 00 05 05 00 30 4 EA 12 CL Ac 59 -0 -[address] 61 AR ti 10 5- 1- 00 SI 52 KE ve 34 20 20 DE 90 09 09 DE 1 PH RE AR K MA J CY OF CY NT HI AN A 00 05 05 01 30 4 EA 12 CL Ac 59 -0 -[address] 61 AR ti 10 5- 1- 00 SI 52 KE ve 34 20 20 DE 90 09 09 DE 1 PH RE AR K MA J CY OF CY NT HI AN A CL 00 05 05 00 12 10 CL 19 CL Ac IN 59 -0 -0 0. IN 29 AR ti DA 15 1- 7- 00 IC 09 KE ve MY 70 20 20 0 CI 80 09 09 PH DE N 1 AR RE HC MA K L CY J 15 0 MG CA PS UL E MA 00 04 04 00 30 30 CL 19 CL Ac EM 04 -1 -2 .0 IN 17 AR ti AR 61 4- 3- 00 IC 79 KE ve IN 10 20 20 28 09 09 PH DE 0. 1 AR RE 62 MA K 5 CY J MG TA BL ET 00 02 04 02 1. 30 CL 18 CL Ac 30 -0 -2 00 IN 71 AR ti 03 6- 3- 0 IC 66 KE ve 64 20 20 10 09 09 PH DE 1 AR RE MA K CY J 00 02 03 01 1. 30 CL 18 CL Ac 30 -0 -1 00 IN 71 AR ti 03 6- 2- 0 IC 66 KE ve 64 20 20 10 09 09 PH DE 1 AR RE MA K CY J 60 03 03 00 20 10 EA 11 WI Ac 50 -0 -[address] 68 CK ti 51 1- 2- 00 SI 18 ER ve 30 20 20 DE 90 09 09 JE 1 PH FF AR RE MA Y CY OF CY NT HI AN A 00 02 02 00 1. 30 CL 18 CL Ac 30 -0 -1 00 IN 71 AR ti 03 6- 2- 0 IC 66 KE ve 64 20 20 10 09 09 PH DE 1 AR RE MA K CY J MA 00 02 02 00 30 30 CL 18 CL Ac EM 04 -0 -1 .0 IN 72 AR ti AR 61 6- 2- 00 IC 45 KE ve IN 10 20 20 28 09 09 PH DE 0. 1 AR RE 62 MA K 5 CY J MG TA BL ET BU 00 01 01 00 90 30 CL 18 CL Ac SP 59 -1 -3 .0 IN 58 AR ti IR 10 5- 0- 00 IC 10 KE ve ON 65 20 20 E 81 09 09 PH DE HC 0 AR RE L MA K 10 CY J MG TA BL ET 65 01 01 00 6. 2 CL 18 CL Ac 16 -0 -1 00 IN 52 AR ti 20 6- 5- 0 IC 02 KE ve 51 20 20 71 09 09 PH DE 0 AR RE MA K CY J TR 60 12 01 00 30 5 EA 10 CL Ac AM 50 -2 -[address] 87 AR ti AD 50 9- 5- 00 SI 84 KE ve OL 17 20 20 DE 10 08 09 DE HC 8 PH RE L AR K 50 MA J CY MG OF TA CY BL NT ET HI AN A 00 07 01 03 1. 30 CL 17 CL Ac 30 -3 -1 00 IN 52 AR ti 03 0- 5- 0 IC 72 KE ve 64 20 20 10 08 09 PH DE 1 AR RE MA K CY J 49 11 12 01 90 30 CL 18 CL Ac 88 -0 -1 .0 IN 12 AR ti 40 6- 8- 00 IC 86 KE ve 70 20 20 80 08 08 PH DE 1 AR RE MA K CY J 59 12 12 00 30 15 CL 18 CA Ac 70 -0 -[address] ti 20 2- 8- 00 IC 13 IL ve 65 20 20 LO 00 08 08 PH 1 AR JR MA J CY V TR 00 12 12 01 30 7 CL 18 CL Ac AM 37 -0 -1 .0 IN 32 AR ti AD 84 4- 8- 00 IC 45 KE ve OL 15 20 20 10 08 08 PH DE HC 5 AR RE L MA K 50 CY J MG TA BL ET 00 07 12 02 1. 30 CL 17 CL Ac 30 -3 -1 00 IN 52 AR ti 03 0- 8- 0 IC 72 KE ve 64 20 20 10 08 08 PH DE 1 AR RE MA K CY J DO 53 11 12 00 28 14 EA 10 GO Ac XY 48 -1 -[address] 29 BL ti CY 90 6- 4- 00 SI 87 E ve CL 11 20 20 DE RO IN 90 08 08 ND E 5 PH AL HY AR E CL MA AT CY E 10 OF 0 CY MG NT HI CA AN P A ME 50 11 12 00 28 14 EA 10 GO Ac TR 11 -1 -[address] 29 BL ti ON 10 6- 4- 00 SI 86 E ve ID 33 20 20 DE RO AZ 40 08 08 ND OL 1 PH AL E AR E 50 MA 0 CY MG OF TA CY BL NT ET HI AN A TR 00 11 12 00 30 5 CL 18 CL Ac AM 37 -2 -0 .0 IN 25 AR ti AD 84 4- 4- 00 IC 63 KE ve OL 15 20 20 10 08 08 PH DE HC 5 AR RE L MA K 50 CY J MG TA BL ET TR 00 11 11 01 30 6 CL 18 CL Ac AM 37 -0 -2 .0 IN 12 AR ti AD 84 6- 0- 00 IC 87 KE ve OL 15 20 20 10 08 08 PH DE HC 5 AR RE L MA K 50 CY J MG TA BL ET 49 11 11 00 90 30 CL 18 CL Ac 88 -0 -2 .0 IN 12 AR ti 40 6- 0- 00 IC 86 KE ve 70 20 20 80 08 08 PH DE 1 AR RE MA K CY J MA 00 11 11 00 30 30 CL 18 CL Ac EM 04 -0 -2 .0 IN 10 AR ti AR 61 3- 0- 00 IC 56 KE ve IN 10 20 20 48 08 08 PH DE 1. 1 AR RE 25 MA K CY J MG TA BL ET CL 00 10 11 00 40 7 CL 18 No Ac IN 59 -2 -0 .0 IN 05 t ti DA 15 7- 7- 00 IC 96 Av ve MY 70 20 20 ai CI 80 08 08 PH la N 1 AR bl HC MA e L CY 15 0 MG CA PS UL E TR 00 10 11 01 42 7 CL 17 No Ac AM 37 -0 -0 .0 IN 92 t ti AD 84 3- 7- 00 IC 07 Av ve OL 15 20 20 ai 10 08 08 PH la HC 5 AR bl L MA e 50 CY MG TA BL ET 00 07 11 01 1. 30 CL 17 No Ac 30 -3 -0 00 IN 52 t ti 03 0- 7- 0 IC 72 Av ve 64 20 20 ai 10 08 08 PH la 1 AR bl MA e CY DE 51 10 10 00 15 3 EA 99 No Ac SO 67 -1 -[address] 86 t ti XI 21 4- 3- 00 SI 34 Av ve ME 27 20 20 DE ai TA 00 08 08 la SO 1 PH bl NE AR e MA 0. CY 25 % OF CR CY EA NT M HI AN A TR 00 10 10 00 42 7 CL 17 No Ac AM 37 -0 -0 .0 IN 92 t ti AD 84 3- 9- 00 IC 07 Av ve OL 15 20 20 ai 10 08 08 PH la HC 5 AR bl L MA e 50 CY MG TA BL ET 00 09 10 00 20 5 EA 99 No Ac 59 -2 -[address] 63 t ti 10 6- 9- 00 SI 05 Av ve 38 20 20 DE ai 50 08 08 la 1 PH bl AR e MA CY OF CY NT HI AN A MA 00 09 10 00 30 30 CL 17 No Ac EM 04 -2 -0 .0 IN 88 t ti AR 61 6- 9- 00 IC 15 Av ve IN 10 20 20 ai 28 08 08 PH la 0. 1 AR bl 62 MA e 5 CY MG TA BL ET 63 09 10 00 14 7 CL 17 No Ac 30 -2 -0 .0 IN 88 t ti 40 6- 9- 00 IC 14 Av ve 51 20 20 ai 80 08 08 PH la 1 AR bl MA e CY 65 09 10 00 9. 3 CL 17 No Ac 16 -2 -0 00 IN 88 t ti 20 6- 9- 0 IC 13 Av ve 51 20 20 ai 71 08 08 PH la 0 AR bl MA e CY 00 07 08 00 1. 30 CL 17 No Ac 30 -3 -1 00 IN 52 t ti 03 0- 4- 0 IC 72 Av ve 64 20 20 ai 10 08 08 PH la 1 AR bl MA e CY MA 00 07 08 00 12 2 CL 17 No Ac OM 78 -2 -1 .0 IN 50 t ti ET 11 6- 4- 00 IC 74 Av ve URBINA 83 20 20 ai ZI 01 08 08 PH la NE 0 AR bl MA e 25 CY MG TA BL ET BE 00 06 07 00 50 5 EA 98 No Ac TA 78 -3 -[address] 56 t ti ME 17 0- 7- 00 SI 45 Av ve TH 07 20 20 DE ai 45 08 08 la ON 0 PH bl E AR e DP MA CY AU G OF 0. CY 05 NT % HI CR AN M A TR 60 06 07 01 60 20 EA 98 No Ac AM 50 -1 -[address] 43 t ti AD 50 9- 7- 00 SI 25 Av ve OL 17 20 20 DE ai 10 08 08 la HC 8 PH bl L AR e 50 MA CY MG OF TA CY BL NT ET HI AN A 49 07 07 00 42 14 EA 98 No Ac 88 -0 -[address] 66 t ti 40 9- 7- 00 SI 63 Av ve 77 20 20 DE ai 90 08 08 la 1 PH bl AR e MA CY OF CY NT HI AN A HY 00 06 07 00 30 7 EA [address] 55 -3 -[address] 56 t ti OX 50 0- 7- 00 SI 44 Av ve YZ 32 20 20 DE ai IN 30 08 08 la E 4 PH bl PA AR e M MA 25 CY MG OF CY CA NT P HI AN A CY 65 07 07 00 9. 5 EA 98 No Ac CL 16 -0 -[address] 66 t ti OB 20 9- 7- 0 SI 62 Av ve EN 54 20 20 DE ai ZA 11 08 08 la MA 1 PH bl IN AR e E MA 10 CY MG OF CY TA NT BL HI ET AN A PE 00 06 07 00 40 10 EA 98 No Ac NI 78 -1 -[address] 34 t ti CI 11 2- 3- 00 SI 91 Av ve LL 65 20 20 DE ai IN 50 08 08 la 1 PH bl VK AR e MA 50 CY 0 MG OF CY TA NT BL HI ET AN A TR 57 06 07 00 60 20 EA 98 No Ac AM 66 -1 -[address] 43 t ti AD 40 9- 3- 00 SI 25 Av ve OL 37 20 20 DE ai 71 08 08 la HC 8 PH bl L AR e 50 MA CY MG OF TA CY BL NT ET HI AN A NA 53 05 06 00 60 30 EA 98 No Ac MA 74 -2 -[address] 14 t ti OX 60 8- 5- 00 SI 69 Av ve EN 19 20 20 DE ai 40 08 08 la SO 1 PH bl DI AR e UM MA CY 55 0 OF MG CY NT TA HI B AN A AC 00 05 05 00 5. 5 EA 97 No Ac UL 02 -0 -[address] 88 t ti AR 39 6- 2- 0 SI 80 Av ve 27 20 20 DE ai LS 70 08 08 la 5 PH bl 0. AR e 4% MA CY OP HT OF H CY SO NT L HI AN A TR 57 05 05 00 25 12 EA 97 No Ac AM 66 -0 -[address] 91 t ti AD 40 8- 2- 00 SI 70 Av ve OL 37 20 20 DE ai 71 08 08 la HC 8 PH bl L AR e 50 MA CY MG OF TA CY BL NT ET HI AN A DO 53 05 05 00 20 10 EA 97 No Ac XY 48 -0 -[address] 88 t ti CY 90 6- 2- 00 SI 87 Av ve CL 11 20 20 DE ai IN 90 08 08 la E 5 PH bl HY AR e CL MA AT CY E 10 OF 0 CY MG NT HI CA AN P A TR 57 04 05 00 20 10 EA 97 No Ac AM 66 -2 -[address] 74 t ti AD 40 4- 8- 00 SI 28 Av ve OL 37 20 20 DE ai 71 08 08 la HC 8 PH bl L AR e 50 MA CY MG OF TA CY BL NT ET HI AN A TR 57 03 04 00 12 4 EA 97 No Ac AM 66 -1 -[address] 26 t ti AD 40 8- 7- 00 SI 34 Av ve OL 37 20 20 DE ai 71 08 08 la HC 8 PH bl L AR e 50 MA CY MG OF TA CY BL NT ET HI AN A NA 53 03 04 00 12 6 EA 97 No Ac MA 74 -1 -[address] 26 t ti OX 60 8- 7- 00 SI 33 Av ve EN 19 20 20 DE ai 40 08 08 la SO 1 PH bl DI AR e UM MA CY 55 0 OF MG CY NT TA HI B AN A PE 00 03 04 00 40 10 EA 97 No Ac NI 78 -3 -[address] 42 t ti CI 11 1- 0- 00 SI 03 Av ve LL 65 20 20 DE ai IN 50 08 08 la 1 PH bl VK AR e MA 50 CY 0 MG OF CY TA NT BL HI ET AN A TR 57 03 04 00 20 10 EA 97 No Ac AM 66 -2 -[address] 39 t ti AD 40 8- 0- 00 SI 97 Av ve OL 37 20 20 DE ai 71 08 08 la HC 8 PH bl L AR e 50 MA CY MG OF TA CY BL NT ET HI AN A JOSE 53 02 04 00 14 7 EA 97 No Ac LF 48 -2 -[address] 02 t ti AM 90 9- 7- 00 SI 32 Av ve ET 14 20 20 DE ai HO 60 08 08 la XA 1 PH bl ZO AR e LE MA -T CY MP OF DS CY NT TA HI BL AN ET A 17 02 04 00 17 17 EA 96 No Ac 27 -2 -[address] 95 t ti 00 5- 7- 00 SI 51 Av ve 72 20 20 DE ai 10 08 08 la 1 PH bl AR e MA CY OF CY NT HI AN A CL 59 03 04 00 30 10 EA 97 No Ac IN 76 -0 -[address] 11 t ti DA 25 6- 7- 00 SI 44 Av ve MY 01 20 20 DE ai CI 00 08 08 la N 2 PH bl HC AR e L MA 30 CY 0 MG OF CY CA NT PS HI UL AN E A 00 02 04 00 6. 1 EA 96 No Ac 59 -2 -[address] 95 t ti 10 5- 7- 0 SI 50 Av ve 34 20 20 DE ai 90 08 08 la 1 PH bl AR e MA CY OF CY NT HI AN A TA 00 02 04 00 10 5 EA 96 No Ac OR 00 -2 -[address] 95 t ti FL 40 5- 7- 00 SI 48 Av ve U 80 20 20 DE ai 75 08 08 08 la 5 PH bl MG AR e MA CA CY PS UL OF E CY NT HI AN A 17 01 03 00 90 30 EA 96 No Ac 31 -2 -[address] 54 t ti 49 8- 6- 00 SI 62 Av ve 30 20 20 DE ai 00 08 08 la 1 PH bl AR e MA CY OF CY NT HI AN A 53 01 03 00 6. 2 EA 96 No Ac 48 -3 -[address] 57 t ti 90 0- 6- 0 SI 50 Av ve 49 20 20 DE ai 91 08 08 la 0 PH bl AR e MA CY OF CY NT HI AN A 00 02 03 00 40 10 EA 96 No Ac 07 -1 -[address] 85 t ti 46 8- 6- 00 SI 80 Av ve 30 20 20 DE ai 41 08 08 la 3 PH bl AR e MA CY OF CY NT HI AN A 52 01 03 00 6. 2 EA 96 No Ac 15 -3 -[address] 57 t ti 20 0- 6- 0 SI 49 Av ve 00 20 20 DE ai 40 08 08 la 2 PH bl AR e MA CY OF CY NT HI AN A 00 09 03 04 1. 1 EA 94 No Ac 30 -1 -[address] 74 t ti 03 2- 5- 0 SI 39 Av ve 64 20 20 DE ai 10 07 08 la 1 PH bl AR e MA CY OF CY NT HI AN A PO 62 01 03 00 52 30 EA 96 No Ac LY 17 -1 -[address] 31 t ti ET 50 1- 4- 00 SI 31 Av ve HY 44 20 20 0 DE ai LE 23 08 08 la NE 1 PH bl AR e GL MA YC CY OL OF 33 CY 50 NT HI PO AN WD A CI 00 01 03 00 20 10 EA 96 No Ac MA 17 -0 -[address] 27 t ti OF 25 8- 4- 00 SI 06 Av ve LO 31 20 20 DE ai XA 26 08 08 la CI 0 PH bl N AR e HC MA L CY 50 0 OF MG CY NT TA HI B AN A Vital Signs 10-14-2013 00:44 Name [...] on COMPREHENSIVE METABOLIC PANEL (04-06-2013 14:10) Glucose 04-06- 80 74-106 complet 013 mg/dL ed Bld-mCn 14:10 c BUN 8 mg/dL 7-18 complet Bld-mCn 013 ed c 14:10 Creat 0.8 0.6-1.0 complet SerPl-m 013 mg/dL ed Cnc 14:10 ESTIMAT 91 50-200 complet ED 013 ML/MIN ed CREATIN 14:10 INE CLEARAN CE GFR 84 59- complet (ESTIMA 013 ML/MIN ed YAO) 14:10 Sodium 04-06- 143 136-145 complet SerPl-s 013 mmoL/L ed Cnc 14:10 Potassi 4.3 3.5-5.1 complet um 013 mmoL/L ed SerPl-s 14:10 Cnc Chlorid 106 98-107 complet e 013 mmoL/L ed SerPl-s 14:10 Cnc CO2 04-06- 30 21.0-32 complet SerPl-s 013 mmoL/L .0 ed Cnc 14:10 Calcium 8.4 8.5-10. complet 013 mg/dL 1 ed SerPl-m 14:10 Cnc Prot 04-06-2 6.4 6.4-8.2 complet SerPl-m 013 gm/dL ed Cnc 14:10 Albumin 04-06- 3.5 3.4-5.0 complet 013 gm/dL ed SerPl-m 14:10 Cnc Globuli 04-06- 2.9 1.3-3.2 complet n 013 gm/dL ed Ser-mCn 14:10 c Albumin 04-06- 1.2 UNK 1.1-1.8 complet /Glob 013 ed SerPl-m 14:10 Rto Bilirub 08-12-2 0.3 0.2-1.0 complet 013 mg/dL ed SerPl-m 14:10 Cnc AST 12-2 50 U/L 15-37 complet SerPl-c 013 ed Cnc 14:10 ALT 12-2 62 U/L 30-65 complet SerPl-c 013 ed Cnc 14:10 ALP 12-2 121 U/L 50-136 complet SerPl-c 013 ed Cnc 14:10 CBC with AUTO DIFF (04-06-2013 14:10) WBC # 08-12-2 6.3 4.8-10. complet Bld 013 K/MM3 8 ed Auto 14:10 RBC # 0812-2 4.04 4.2-5.4 complet Bld 013 M/mm3 ed Auto 14:10 Hgb -12-2 12.0 12.2-16 complet Bld-mCn 013 g/dL .2 ed c 14:10 Hct Fr 04-06-2 36.5 % 37.0-47 complet Bld 013 .0 ed 14:10 MCV RBC 12-2 90.2 fl 82.2-97 complet 013 .8 ed 14:10 MCH RBC 12-2 29.7 pg 27-31.2 complet Qn 013 ed Auto 14:10 MEAN 12-2 33.0 31.8-35 complet CORPUSC 013 g/dl .4 ed ULAR 14:10 HGB CONC RDW RBC -12-2 15.1 % 11.5-17 complet Auto 013 .5 ed 14:10 Platele 12-2 217 142-424 complet t Bld 013 K/mm3 ed Ql 14:10 Manual MEAN 04-06-2 7.1 fl 7.4-10. complet PLATELE 013 4 ed T 14:10 VOLUME Granulo -12-2 50.4 % 37.0-80 complet cytes 013 .0 ed Fr Bld 14:10 Auto LYMPH % 08-12-2 42.8 % 10-50.0 complet 013 ed 14:10 Monocyt -12-2 4.3 % 1.7-9.3 complet es Fr 013 ed Bld 14:10 Auto Eosinop -12-2 2.3 % 0.1-12. complet hil Fr 013 0 ed Bld 14:10 Auto Basophi 08-12-2 0.3 % 0.1-2.0 complet ls Fr 013 ed Bld 14:10 Auto Granulo 08-12-2 3.2 1.8-7.8 complet cytes # 013 K/mm3 ed Bld 14:10 Auto Lymphoc -12-2 2.7 0.7-4.5 complet ytes Fr 013 K/mm3 ed Bld 14:10 Auto Monocyt 0812-2 0.3 0.1-1.0 complet es # 013 K/mm3 ed Bld 14:10 Auto Eosinop -12-2 0.1 0.0-0.4 complet hil # 013 K/mm3 ed Bld 14:10 Auto Basophi 0812-2 0.0 0-0.2 complet ls # 013 K/MM3 ed Bld 14:10 Auto CBC with AUTO DIFF (04-04-2013 06:20) WBC # 08-10-2 4.8 4.8-10. complet Bld 013 K/MM3 8 ed Auto 06:20 RBC # 08-10-2 4.52 4.2-5.4 complet Bld 013 M/mm3 ed Auto 06:20 Hgb -10-2 13.7 12.2-16 complet Bld-mCn 013 g/dL .2 ed c 06:20 Hct Fr 04-04-2 42.0 % 37.0-47 complet Bld 013 .0 ed 06:20 MCV RBC 10-2 93.0 fl 82.2-97 complet 013 .8 ed 06:20 MCH RBC 04-04-2 30.2 pg 27-31.2 complet Qn 013 ed Auto 06:20 MEAN 04-04-2 32.5 31.8-35 complet CORPUSC 013 g/dl .4 ed ULAR 06:20 HGB CONC RDW RBC -10-2 15.4 % 11.5-17 complet Auto 013 .5 ed 06:20 Platele 08-10-2 243 142-424 complet t Bld 013 K/mm3 ed Ql 06:20 Manual MEAN 10-2 7.8 fl 7.4-10. complet PLATELE 013 4 ed T 06:20 VOLUME Granulo 04-04-2 35.0 % 37.0-80 complet cytes 013 .0 [...] 013 K/mm3 ed Bld 06:20 Auto Eosinop 08-10-2 0.1 0.0-0.4 complet hil # 013 K/mm3 ed Bld 06:20 Auto Basophi 08-10-2 0.0 0-0.2 complet ls # 013 K/MM3 [...] 013 mmoL/L .0 ed Cnc 13:15 Calcium 2 9.0 8.5-10. complet 013 mg/dL 1 ed [...] 11:15 COMPREHENSIVE METABOLIC PANEL (03-27-2013 10:25) Glucose 02- 73 74-106 complet 013 mg/dL ed Bld-mCn 10:25 c BUN 02-2 7 mg/dL 7-18 complet Bld-mCn 013 ed c 10:25 Creat 03-27-2 0.9 0.6-1.0 complet SerPl-m 013 mg/dL ed Cnc 10:25 ESTIMAT 08-02-2 82 50-200 complet ED 013 ML/MIN ed CREATIN 10:25 INE CLEARAN CE GFR 02- 74 59- complet (ESTIMA 013 ML/MIN ed YAO) 10:25 Sodium 02-2 141 136-145 complet SerPl-s 013 mmoL/L ed Cnc 10:25 Potassi 0802-2 3.9 3.5-5.1 complet um 013 mmoL/L ed SerPl-s 10:25 Cnc Chlorid 08-2 105 98-107 complet e 013 mmoL/L ed SerPl-s 10:25 Cnc CO2 03-27-2 31 21.0-32 complet SerPl-s 013 mmoL/L .0 ed Cnc 10:25 Calcium 0802-2 8.9 8.5-10. complet 013 mg/dL 1 ed SerPl-m 10:25 Cnc Prot 03-27-2 7.4 6.4-8.2 complet SerPl-m 013 gm/dL ed Cnc 10:25 Albumin 02-2 3.9 3.4-5.0 complet 013 gm/dL ed SerPl-m 10:25 Cnc Globuli 03-27- 3.5 1.3-3.2 complet n 013 gm/dL ed Ser-mCn 10:25 c Albumin 03-27-2 1.1 UNK 1.1-1.8 complet /Glob 013 ed SerPl-m 10:25 Rto Bilirub 03-27-2 0.3 0.2-1.0 complet 013 mg/dL ed SerPl-m 10:25 Cnc AST 02-2 20 U/L 15-37 complet SerPl-c 013 ed Cnc 10:25 ALT 03-27- 70 U/L 30-65 complet SerPl-c 013 ed Cnc 10:25 ALP 02-2 103 U/L 50-136 complet SerPl-c 013 ed Cnc 10:25 LIPASE (03-27-2013 10:25) LIPASE 0802-2 175 U/L 73-393 complet 013 ed 10:25 CBC with AUTO DIFF (03-27-2013 10:25) WBC # 08-02-2 5.8 4.8-10. complet Bld 013 K/MM3 8 ed Auto 10:25 RBC # 08-02-2 4.51 4.2-5.4 complet Bld 013 M/mm3 ed Auto 10:25 Hgb 02-2 13.3 12.2-16 complet Bld-mCn 013 g/dL .2 ed c 10:25 Hct Fr 08-02-2 41.4 % 37.0-47 complet Bld 013 .0 ed 10:25 MCV RBC 08-02-2 91.6 fl 82.2-97 complet 013 .8 ed 10:25 MCH RBC 08-02-2 29.5 pg 27-31.2 complet Qn 013 ed Auto 10:25 MEAN 08-02-2 32.3 31.8-35 complet CORPUSC 013 g/dl .4 ed ULAR 10:25 HGB CONC RDW RBC -02-2 15.3 % 11.5-17 complet Auto 013 .5 ed 10:25 Platele 08-02-2 350 142-424 complet t Bld 013 K/mm3 ed Ql 10:25 Manual MEAN 02-2 7.7 fl 7.4-10. complet PLATELE 013 4 ed T 10:25 VOLUME Granulo -02-2 51.2 % 37.0-80 complet cytes 013 .0 [...] YELLOW complet COLOR 013 ed 10:10 URINE 03-27-2 CLOUDY CLEAR complet APPEARA 013 ed NCE 10:10 URINE 03-27-2 NEGATIV NEG complet GLUCOSE 013 E ed - 10:10 DIPSTIC K URINE --2 NEGATIV NEG complet BILIRUB 013 E ed IN - 10:10 DIPSTIC K URINE 03-27-2 NEGATIV NEG complet KETONE 013 E mg/dL ed 10:10 URINE 03-27-2 1.025 1.005-1 complet SPECIFI 013 UNK .030 ed C 10:10 GRAVITY URINE 03-27-2 NEGATIV NEG complet BLOOD 013 E ed 10:10 URINE 03-27-2 6.0 UNK 5.0-8.5 complet PH 013 ed 10:10 URINE 03-27-2 NEGATIV NEG complet PROTEIN 013 E mg/dL ed - 10:10 DIPSTIC K URINE 03-27-2 0.2 NEG complet UROBILI 013 E.U./dL ed NOGEN - 10:10 DIPSTIC K URINE 03-27-2 POSITIV NEG complet NITRATE 013 E ed - 10:10 DIPSTIC K URINE 03-27-2 TRACE NEG complet LEUK 013 ed ESTERAS 10:10 E URINE 03-27-2 5-10 O complet WBC 013 wbc/hpf ed 10:10 URINE 03-27-2 5-10 0-5 complet SQUAMOU 013 #/hpf ed S CELLS 10:10 URINE 03-27-2 4+ O complet BACTERI 013 ed A [...] SerPl-s 013 mmoL/L ed Cnc 21:15 Potassi 04-19-2 3.4 3.5-5.1 complet um 013 mmoL/L ed SerPl-s 21:15 Cnc Chlorid 12-12- 103 98-107 complet e 013 mmoL/L ed SerPl-s 21:15 Cnc CO2 12-12-2 30 21.0-32 complet SerPl-s 013 mmoL/L .0 ed Cnc 21:15 Calcium 12-12-2 8.8 8.5-10. complet 013 mg/dL 1 ed SerPl-m 21:15 Cnc Prot 12-12-2 6.1 6.4-8.2 complet SerPl-m 013 gm/dL ed Cnc 21:15 Albumin 12-12-2 3.5 3.4-5.0 complet 013 gm/dL ed SerPl-m [...] complet 013 .8 ed 21:15 MCH RBC 04-19-2 29.5 pg 27-31.2 complet Qn 013 ed Auto 21:15 MEAN 12-12-2 32.0 31.8-35 complet CORPUSC 013 g/dl .4 ed ULAR 21:15 HGB CONC RDW RBC 12-12-2 14.2 % 11.5-17 complet Auto 013 .5 ed 21:15 Platele 12-12-2 286 142-424 complet t Bld 013 K/mm3 ed Ql 21:15 Manual MEAN 7.9 fl 7.4-10. complet PLATELE 013 4 ed T 21:15 VOLUME Granulo 12-12-2 36.3 % 37.0-80 complet cytes 013 .0 ed Fr Bld 21:15 Auto LYMPH % 12-12-2 56.0 % 10-50.0 complet 013 ed 21:15 Monocyt 12-12-2 5.5 % 1.7-9.3 complet es Fr 013 ed Bld 21:15 Auto Eosinop -19-2 1.9 % 0.1-12. complet hil Fr 013 0 ed Bld 21:15 Auto Basophi 19-2 0.3 % 0.1-2.0 complet ls Fr 013 ed Bld 21:15 Auto Granulo -19-2 1.9 1.8-7.8 complet cytes # 013 K/mm3 ed Bld 21:15 Auto Lymphoc 19-2 3.0 0.7-4.5 complet ytes Fr 013 K/mm3 ed Bld 21:15 Auto Monocyt -19-2 0.3 0.1-1.0 complet es # 013 K/mm3 ed Bld 21:15 Auto Eosinop -19-2 0.1 0.0-0.4 complet hil # 013 K/mm3 ed Bld 21:15 Auto Basophi -19-2 0.0 0-0.2 complet ls # 013 K/MM3 ed Bld 21:15 Auto URINALYSIS/COMPLETE (12-12-2012 20:10) URINE 12-12-2 YELLOW YELLOW complet COLOR 013 ed 20:10 URINE 12-12-2 CLEAR CLEAR complet APPEARA 013 ed NCE 20:10 URINE 12-12-2 NEGATIV NEG complet GLUCOSE 013 E ed - 20:10 DIPSTIC K URINE 12-12-2 NEGATIV NEG complet BILIRUB 013 E ed IN - 20:10 DIPSTIC K URINE -19-2 NEGATIV NEG complet KETONE 013 E mg/dL ed 20:10 URINE -19-2 Less 1.005-1 complet SPECIFI 013 than or .030 ed C 20:10 equal GRAVITY to 1.005 URINE -19-2 NEGATIV NEG complet BLOOD 013 E ed 20:10 URINE -19-2 6.0 UNK 5.0-8.5 complet PH 013 ed 20:10 URINE -19-2 NEGATIV NEG complet PROTEIN 013 E mg/dL ed - 20:10 DIPSTIC K URINE -19-2 0.2 NEG complet UROBILI 013 E.U./dL ed NOGEN - 20:10 DIPSTIC K URINE -19-2 NEGATIV NEG complet NITRATE 013 E ed - 20:10 DIPSTIC K URINE -19-2 NEGATIV NEG complet LEUK 013 E ed ESTERAS 20:10 E URINE -19-2 20-50 0-5 complet SQUAMOU 013 #/hpf ed S CELLS 20:10 URINE -19-2 TRACE O complet BACTERI 013 ed A [...] 013 mmoL/L .0 ed Cnc 15:05 Calcium 10-17-2 9.0 8.5-10. complet 013 mg/dL 1 ed SerPl-m 15:05 Cnc Prot 10-17-2 7.1 6.4-8.2 complet SerPl-m 013 gm/dL ed Cnc 15:05 Albumin 10-17-2 3.7 3.4-5.0 complet 013 gm/dL ed SerPl-m 15:05 Cnc Globuli 10-17-2 3.4 1.3-3.2 complet n 013 gm/dL ed Ser-mCn 15:05 c Albumin 10-17-2 1.1 UNK 1.1-1.8 complet /Glob 013 ed SerPl-m 15:05 Rto Bilirub 10-17-2 0.2 0.2-1.0 complet 013 mg/dL ed SerPl-m 15:05 Cnc AST 10-17-2 56 U/L 15-37 complet SerPl-c 013 ed Cnc 15:05 ALT 10-17-2 92 U/L 30-65 complet SerPl-c 013 ed Cnc 15:05 ALP 10-17-2 139 U/L 50-136 complet SerPl-c 013 ed Cnc 15:05 LIPASE (10-17-2012 15:05) LIPASE 10-17-2 102 U/L 73-393 complet 013 ed 15:05 CBC with AUTO DIFF (10-17-2012 15:05) WBC # 22-2 8.8 4.8-10. complet Bld 013 K/MM3 8 ed Auto 15:05 RBC # 22-2 4.32 4.2-5.4 complet Bld 013 M/mm3 ed [...] 013 K/mm3 ed Ql 15:05 Manual MEAN 2 7.0 fl 7.4-10. complet PLATELE 013 4 ed T 15:05 VOLUME Granulo 2 67.3 % 37.0-80 complet cytes 013 .0 ed Fr Bld 15:05 Auto LYMPH % 10-17-2 25.9 % 10-50.0 complet 013 ed 15:05 Monocyt 10-17-2 3.6 % 1.7-9.3 complet es Fr 013 ed Bld 15:05 Auto Eosinop 10-17-2 3.0 % 0.1-12. complet hil Fr 013 [...] YELLOW complet COLOR 013 ed 15:00 URINE SL CLEAR complet APPEARA 013 CLOUDY ed NCE 15:00 URINE NEGATIV NEG complet GLUCOSE 013 E ed - 15:00 DIPSTIC K URINE NEGATIV NEG complet BILIRUB 013 E ed IN - 15:00 DIPSTIC K URINE NEGATIV NEG complet KETONE 013 E mg/dL ed 15:00 URINE Less 1.005-1 complet SPECIFI 013 than or .030 ed C 15:00 equal GRAVITY to 1.005 URINE TRACE-L NEG complet BLOOD 013 YSED ed 15:00 URINE 7.0 UNK 5.0-8.5 complet PH 013 ed 15:00 URINE NEGATIV NEG complet PROTEIN 013 E mg/dL ed - 15:00 DIPSTIC K URINE 0.2 NEG complet UROBILI 013 E.U./dL ed NOGEN - 15:00 DIPSTIC K URINE NEGATIV NEG complet NITRATE [...] Procedures Procedure DOS Code Location Performer Comment THERAPEUT 91622 [facility] PROPHYLAC INC INC TIC/DX INJECTION SUBQ/IM THER 75494 [facility] PROPH/DX 7 [facility] NJX IV INC INC PUSH SINGLE/1S T SBST/DRUG URNLS DIP 53160 [facility] STICK/TAB INC [place] [address] [facility] ABDOMEN & 7 [facility] PELVIS INC INC W/O CONTRAST MATERIAL CULTURE 97123 [facility] BACTERIAL 7 [facility] INC INC QUANTTATI VE COLONY COUNT URINE COMPREHEN 77256 [facility] SIVE 7 [facility] [place] [address] [facility] LIPASE 7 [facility] INC INC FINAL G9551 IDAHO ALVARENGA REPR ABD 7 MEDICAL IMAG STS IMAGING W/O ASS INCIDNT FND LES NTD: THERAPEUT 63483 [facility] IC [facility] INJECTION INC INC IV PUSH EACH NEW DRUG BLOOD 60391 [facility] COUNT 7 [facility] COMPLETE INC INC AUTO&AUTO DIFRNTL WBC FINAL G9638 OWEN ALVARENGA REPORTS 7 MEDICAL W/O DOC IMAGING 1/MORE ASS DOSE REDUCTION TECH THERAPEUT 86554 [facility] INJECTION [place] [address] [facility] INFUSION 7 [facility] THERAPY/P INC INC ROPHYLAXI S /DX 1ST TO 1 HR MRI ANY 53962 KATIE FERNANDEZ JT UPPER 7 EXTREMITY ORTHOPAED W/O ICS PSC CONTRAST MATRL RADEX 53769 KATIE FERNANDEZ SHOULDER 7 COMPLETE ORTHOPAED MINIMUM 2 ICS PSC VIEWS INJECTION J2550 [facility] IVAN 7 PHYSICIAN PROMETHAZ GROUP INE HCL UP TO 50 MG THERAPEUT 31217 [facility] IVAN IC 7 PHYSICIAN PROPHYLAC GROUP TIC/DX INJECTION SUBQ/IM INJECTION J1885 [facility] IVAN 7 PHYSICIAN KETOROLAC GROUP TROMETHAM INE PER 15 MG OPHTH 87764 [facility] 6 XM&EVAL COMPRHNSV ESTAB PT 1/> INJECTION J2405 [facility] 6 Y Y [facility] HCL PER 1 MG INJECTION J2[address] [facility] 6 Y Y [facility] HCL PER 1 [place] [address] [facility] SURG 6 Y Y PATHOLOGY [facility] GROSS&MACARIO ROSCOPIC EXAM INJECTION J[address] [facility] 6 Y Y DEXAMETHO [facility] SONE SODIUM PHOSPHATE 1 MG INJECTION J[address] [facility] PROPOFOL 6 Y Y 10 MG [facility] SPECIAL [address] [facility] [address] Y [address] MICROORGA NISMS I&R COLSC FLX [address] GARIMA MORALES W/RMVL 6 MEDICAL LEMUEL OF TUMOR SERV POLYP FOUNDATIO LESION N SNARE TQ ANES 77825 [facility] 6 LTH [place] INTESTINE ANESTHESI A PSC ENDOSCOPY DISTAL DUODENUM COMPREHEN [address] [facility] SIVE 6 Y Y METABOLIC [facility] PANEL IMMUNOASS [address] [facility] AY 6 Y Y [facility] QUAL/[place] M[place] [address] [facility] LIPASE 6 Y Y [facility]OSPITAL [facility] ANTIBODY [address] [facility] HELMINTH 6 Y Y NOT [facility] [place] [address] [facility] GAMMAGLOB 6 Y Y ULIN IGA [facility] IGD IGG IGM EACH BLOOD [address] [facility] COUNT 6 Y Y COMPLETE [facility] AUTO&AUTO DIFRNTL WBC COLLECTIO [address] [facility] N VENOUS 6 Y Y [facility] VENIPUNCT URE IADNA 68380 [facility] NEISSERIA 6 PHYSICIAN PHYSICIAN S GROUP S GROUP GONORRHOE AE DIRECT PROBE TQ CULTURE 92479 [facility] HARPEL CHLAMYDIA 6 PHYSICIAN KT ANY S GROUP SOURCE URINLS 11166 [facility] DIP 6 PHYSICIAN KT STICK/TAB S GROUP LET REAGNT NON-AUTO MICRSCPY THER 75247 [facility] PROPH/DX 6 [facility] NJX IV INC INC PUSH SINGLE/1S T SBST/DRUG RHYTHM 11581 [facility] ECG 1-3 6 [facility]OS[facility] LEADS INC INC TRACING ONLY W/O I&R THERAPEUT 64815 S[facility] IC 6 [facility] INJECTION INC INC IV PUSH EACH NEW DRUG RADIOLOGI 99795 IDAHO LENA C EXAM 6 [facility] [place] [facility] 2 IMAGING VIEWS ASS FRONTAL&L ATERAL ECG 93029 [facility] ROUTINE [address] [facility] W/LEAST P 12 LDS I&[place] [address] [facility] LIPASE 6 [facility] INC INC URNLS DIP 35522 [facility] STICK/TAB INC INC LET REAGENT AUTO MICROSCOP Y FIBRIN 86536 [facility] DGRADJ 6 [facility]OSP PRODUCTS INC INC D-DIMER QUAL/SEMI PARAS SUSCEPTIB 94659 [facility] ILITY 6 [facility] STUDY INC INC ANTIMICRO BIAL DISK METHOD BLOOD 61984 [facility]ONIDO HEAD COUNT 6 [facility] COMPLETE INC INC AUTO&[place] [address] SONIDO SONIDO TROPONIN 6 [facility] QUANTITAT INC INC JACK ECG 66097 SONIDOPANKAJ HEAD ROUTINE 6 [facility] ECG INC INC W/LEAST 12 LDS TRCG ONLY W/O I&[place] [address] [place] [facility] ABDOMEN & 6 [facility] PELVIS IMAGING W/O ASS CONTRAST MATERIAL COMPREHEN 08185 SONIDO SONIDO SIVE 6 [facility] METABOLIC INC INC PANEL CULTURE 02812 SONIDO SONIDO BACTERIAL 6 [facility] INC INC QUANTTATI VE COLONY COUNT URINE CULTURE 51645 SONIDO SONIDO BCT 6 [facility] ISOL&PRSM INC INC PTV ID ISOLATE EA URINE INJECTION J1885 [facility] IVAN 6 PHYSICIAN MACARIO KETOROLAC S GROUP TROMETHAM INE PER 15 MG THERAPEUT 34253 [facility] IVAN IC 6 PHYSICIAN MACARIO PROPHYLAC S GROUP TIC/DX INJECTION SUBQ/IM INJECTION J2550 [facility] IVAN 6 PHYSICIAN MACARIO PROMETHAZ S GROUP INE HCL UP TO 50 MG INJECTION J2550 [facility] JOSE GUADALUPE 6 PHYSICIAN PROMETHAZ GROUP INE HCL UP TO 50 MG IAADIADOO 87497 [facility] JOSE GUADALUPE 6 PHYSICIAN INFLUENZA GROUP TH[facility]APEUT 19939 [facility] PROPHYLAC GROUP TIC/DX INJECTION SUBQ/IM DRUG TST [id number] PHYSICIAN PHYSICIAN DEFINITV [address] [facility] [facility] [address] ID CENTER CENTER METH P DAY 22/MORE DR EPPS SPECTROPH 97554 PHYSICIAN PHYSICIAN OTOMETRY 6 S [facility] ANALYT C[facility] CENTER NOT ELSEWHERE SPECIFIED PH BODY 94432 PHYSICIAN PHYSICIAN FLUID NOT 6 [facility] ELSEWHERE SPECIFIED CREATININ 05141 PHYSICIAN PHYSICIAN E OTHER 6 [facility] ANES 69424 [facility] [place] TRANSURET 6 ANESTHESI DHALIWAL HRAL A GROUP W/URETHRO PS CYSTOSCOP Y NOS ECG 41164 SONIDO HEAD ROUTINE 6 [facility] ECG INC INC W/LEAST 12 LDS TRCG ONLY W/O I&R CULTURE 30977 SONIDO HEAD BACTERIAL 6 [facility] INC INC QUANTTATI VE COLONY COUNT URINE COMPREHEN 13151 SONIDO HEAD SIVE 6 [facility] METABOLIC INC INC PANEL COLLECTIO 94685 SONIDO Powell VENOUS 6 [facility] BLOOD INC INC VENIPUNCT URE URNLS DIP 51746 SONIDO HEAD 6 [facility] STICK/TAB INC INC LET REAGENT AUTO MICROSCOP Y ECG [address] [facility] W/LEAST P 12 LDS I&R ONLY BLOOD 21146 SONIDO HEAD COUNT 6 [facility] COMPLETE INC INC AUTO&AUTO DIFRNTL WBC NASOPHARY 79186 EAR, NOSE SHASHY NGOSCOPY 6 AND ABHIJIT W/ENDOSCO THROAT PE SPX SPECIAL ANES 34778 [facility] TRANSURET 6 ANESTHESI RICKEY HRAL A GROUP W/URETHRO PS CYSTOSCOP Y NOS ECG 47974 SONIDO HEAD ROUTINE 6 [facility] ECG INC INC W/LEAST 12 LDS TRCG ONLY W/O I&R COMPREHEN 24249 SONIDO CORTEZE 6 [facility] METABOLIC INC INC PANEL CULTURE 15998 SONIDO HEAD BACTERIAL 6 [facility] INC INC QUANTTATI VE COLONY COUNT URINE COLLECTIO 02055 SONIDO Powell VENOUS 6 [facility] BLOOD INC INC VENIPUNCT URE BLOOD 86859 SONIDO HEAD COUNT 6 [facility] COMPLETE INC INC AUTO&AUTO DIFRNTL WBC ECG 82735 SONIDO GEORGES JR ROUTINE 6 [facility] W/LEAST P 12 LDS I&R ONLY URNLS DIP 50747 SONIDO HEAD 6 [facility] STICK/TAB INC INC LET REAGENT AUTO MICROSCOP Y URNLS DIP 14700 SONIDO HEAD 6 [facility] STICK/TAB INC INC [place] [address] SONIDO HEAD LIPASE 6 [facility] INC INC FIBRIN 37634 SONIDO HEAD DGRADJ 6 [facility] PRODUCTS INC INC D-DIMER QUAL/SEMI PARAS THERAPEUT 75086 SONIDO SONIDO IC 6 [facility] INJECTION INC INC IV PUSH EACH NEW DRUG BLOOD 11371 SONIDO HEAD COUNT 6 [facility] COMPLETE INC INC AUTO&[place] [address] SONIDO HEAD AMYLASE 6 [facility] INC INC COMPREHEN 27851 SONIDO [place] SIVE 6 [facility] METABOLIC INC INC PANEL THER 37251 SONIDO HEAD PROPH/DX 6 [facility] NJX IV INC INC PUSH SINGLE/1S T SBST/[place] [address] SONIDO SONIDO ABDOMEN & 6 [facility] PELVIS INC INC W/O CONTRAST MATERIAL UNCLASSIF J3490 SONIDO HEAD IED DRUGS 6 [facility] INC INC INJECTION J1885 [facility] THIEN TER 6 PHYSICIAN KETOROLAC S GROUP TROMETHAM INE PER 15 MG CYSTO 16822 [facility] CALIBRATI 6 [place] ON DILAT ADULT & URTL PED STRIX/LIANA NOSIS SHUKRI 27167 [facility] POST-VOID 6 [place] THER[facility] ING ADULT & RESIDUAL PED URINE&/BL ADDER CAP PH BODY 49598 PHYSICIAN PHYSICIAN FLUID NOT 6 S [facility] CENTER ELSEWHERE SPECIFIED CREATININ 25611 PHYSICIAN PHYSICIAN E OTHER 6 [facility] SPECTROPH 42938 PHYSICIAN PHYSICIAN OTOMETRY 6 S [facility] [place] [address] [facility] ABDOMEN & 5 [facility] PELVIS IMAGING W/O ASS CONTRAST MATERIAL CULTURE 44970 [facility] BACTERIAL 5 DIAGNOSTI DIAGNOSTI CS CS QUANTTATI VE COLONY COUNT URINE URINLS 99096 A C SHELLIE LIANA DIP 5 THUY ROACH STICK/TAB PSC LET REAGNT NON-AUTO MICRSCPY INJECTION J1885 [facility] THIEN TER 5 PHYSICIAN KETOROLAC S GROUP TROMETHAM INE PER 15 MG THERAPEUT 74672 [facility] THIEN ZIMMERMAN IC 5 PHYSICIAN PROPHYLAC S GROUP TIC/DX INJECTION SUBQ/IM THERAPEUT 91332 SONIDO SHI IC 5 [facility] TIC/DX INJECTION SUBQ/IM INJECTION J1885 SONIDO SHI 5 [facility] TROMETHAM INE PER 15 MG INJECTION J2550 SONIDO SHI 5 [facility] INE HCL UP TO 50 MG INJECTION J2550 SONIDO VIDAL 5 [facility] INE HCL UP TO 50 MG INJECTION J1885 SONIDO VIDAL 5 [facility] TROMETHAM INE PER 15 MG THERAPEUT 59053 SONIDO VIDAL IC 5 [facility] TIC/DX INJECTION SUBQ/IM THERAPEUT 83213 SONIDO SHI IC 5 [facility] TIC/DX INJECTION SUBQ/IM INJECTION J1885 SONIDO SHI 5 [facility] TROMETHAM INE PER 15 MG INJECTION J2550 SONIDO SHI 5 [facility] INE HCL UP TO 50 MG RADEX 96293 S[facility]O HEAD FOOT 5 [facility] COMPLETE INC INC MINIMUM 3 VIEWS RADEX 33262 IDAHO ALVARENGA ALL FOOT 5 MEDICAL COMPLETE IMAGING MINIMUM 3 [place] [address] [facility] PETTEY 5 PHYSICIAN JAM METATARSA S GROUP L FRACTURE W/O MANIPULAT ION SURGICAL L3260 ADVANCED ADVANCED BOOT/SHOE 5 TECHNOLOG TECHNOLOG EACH IES INC IES INC INJECTION J1885 SONIDO SHI 5 [facility] TROM[place] INE PER 15 MG THERAPEUT 83193 SONIDO SHI IC 5 [facility] TIC/DX INJECTION SUBQ/IM INJECTION J2550 SONIDO SHI 5 [facility] INE HCL UP TO 50 MG RADIOLOGI 37106 IDAHO LENA C EXAM 5 [facility] CHEST 2 IMAGING VIEWS ASS FRONTAL&L ATERAL CYSTOURET 23504 SONIDO HICKS JR HROSCOPY 5 [facility] P URNLS DIP 01475 SONIDO HICKS JR [address] [facility] LET RGNT P NON-AUTO W/O MICRSCP THERAPEUT 88204 SONIDO VIDAL IC 5 [facility] TIC/DX INJECTION SUBQ/IM INJECTION J1885 SONIDO VIDAL 5 [facility] TROMETHAM INE PER 15 MG UROGRAPHY 65131 SONIDO HEAD IV W/WO 5 [facility] KUB W/WO INC INC TOMOGRAPH Y LOCM Q9967 SON[facility]O HEAD 300-399 5 [facility] MG/ML INC INC IODINE CONCENTRA TION PER ML INF AGT G0432 S[facility]O HEAD AB DETECT 5 [facility] EIA TECH INC INC HIV-1&/HI V-2 SCR HEPATITIS 43982 [facility] HEAD C 5 [facility] ANTIBODY INC INC COLLECTIO 28693 SONIDO HEAD N VENOUS 5 [facility] BLOOD INC INC VENIPUNCT URE THERAPEUT 63198 [facility] FRYMAN IC 5 PHYSICIAN EUG PROPHYLAC S GROUP TIC/DX INJECTION SUBQ/IM INJECTION J1885 [facility] FRYMAN 5 PHYSICIAN EUG KETOROLAC S GROUP TROMETHAM INE PER 15 MG INJECTION J1885 [facility] IVAN 5 PHYSICIAN MACARIO KETOROLAC S GROUP TROMETHAM INE PER 15 MG INJECTION J1200 [facility] 5 PHYSICIAN [facility] DIPHENHYD S GROUP RAMINE HCL UP TO 50 MG THERAPEUT 59490 [facility] IC 5 PHYSICIAN MACARIO PROPHYLAC S GROUP TIC/DX INJECTION SUBQ/IM INJECTION J2550 [facility] 5 PHYSICIAN [facility] PROMETHAZ S GROUP INE HCL UP TO 50 MG COLLECTIO 59064 SONIDO HEAD N VENOUS 5 [facility] BLOOD INC INC VENIPUNCT URE BLOOD 12486 SONIDO HEAD COUNT 5 [facility] COMPLETE INC INC AUTO&AUTO DIFRNTL WBC IMMUNOASS 75631 SONIDO HEAD AY NFCT 5 [facility] AGT ANTB INC INC QUAL/SEMI PARAS 1 STEP IAADIADOO 73715 [facility] IVAN 5 PHYSICIAN [place] [address] [facility] [place] [facility] CERVICAL 5 RADIOLOGY SPINE W/O CONTRAST MATERIAL RADEX 34122 SONIDO HEAD SHOULDER 5 [facility] COMPLETE INC INC MINIMUM 2 VIEWS RADEX 40523 SONIDO HEAD SPINE 5 [facility] CERVICAL INC INC [address] [place] [address] [facility] [place] RODRIGUEZ ABDOMEN & 5 RADIOLOGY RAY PELVIS W/O CONTRAST MATERIAL INJECTION J1885 [facility] IVAN 4 PHYSICIAN MACARIO KETOROLAC S GROUP TROMETHAM INE PER 15 MG THERAPEUT 83168 [facility] IVAN IC 4 PHYSICIAN MACARIO PROPHYLAC S GROUP TIC/DX INJECTION SUBQ/IM INJECTION J2550 [facility] IVAN 4 PHYSICIAN MACARIO PROMETHAZ S GROUP INE HCL UP TO 50 MG RADEX ABD 75032 IDAHO BEINEKE COMPL 4 [facility] AQT ABD IMAGING W/S/E/D ASS VIEWS 1 [facility] 88375 IDAHO LENA RETROPERI 4 [facility] TONEAL IMAGING REAL TIME ASS W/IMAGE LIMITED OPHTH 98345 SCIFRES SCIFRES MEDICAL 4 ANG ANG XM&EVAL COMPRE NEW PT 1/> VST RADIOLOGI 85598 [facility] C 4 HARIS [facility] EXAMINATI EMERGENCY ON [place] [address] [facility] JAM ABDOMEN & 4 PELVIS W/CONTRAS T MATERIAL INJECTION J0696 SHELL SHELL 4 PARVEZ PARVEZ CEFTRIAXO NE SODIUM PER 250 MG THERAPEUT 67799 [facility] IC 4 [facility] PAR[facility]Z PROPHYLAC TIC/DX INJECTION SUBQ/IM INJECTION J1885 [facility] SHELL 4 PAR[facility] PARVEZ KETOROLAC TROMETHAM INE PER 15 MG INJECTION J1885 [facility] 4 PHYSICIAN PHYSICIAN KETOROLAC S GROUP S GROUP TROMETHAM INE PER 15 MG THERAPEUT 52124 [facility] IC 4 PHYSICIAN PHYSICIAN PROPHYLAC S GROUP S GROUP TIC/DX INJECTION SUBQ/IM INJECTION J2550 [facility] 4 PHYSICIAN PHYSICIAN PROMETHAZ S GROUP S GROUP INE HCL UP TO 50 MG INJECTION J2550 [facility] 4 PHYSICIAN PHYSICIAN PROMETHAZ S GROUP S GROUP INE HCL UP TO 50 MG THERAPEUT 05308 [facility] IC 4 PHYSICIAN PHYSICIAN PROPHYLAC S GROUP S GROUP TIC/DX INJECTION SUBQ/IM INJECTION J1885 [facility] 4 PHYSICIAN PHYSICIAN KETOROLAC S GROUP S GROUP TROMETHAM INE PER 15 MG INJECTION J1200 [facility] 4 PHYSICIAN PHYSICIAN DIPHENHYD S GROUP S GROUP RAMINE HCL UP TO 50 MG URINLS 45650 HARPEL HARPEL DIP 4 KT KT STICK/TAB LET REAGNT NON-AUTO MICRSCPY INJECTION J1885 IV[facility] DICKENS 4 MACARIO MACARIO KETOROLAC TROMETHAM INE PER 15 MG THERAPEUT 67848 IV[facility] DICKENS IC 4 MACARIO MACARIO PROPHYLAC TIC/DX INJECTION SUBQ/IM INJECTION J1040 IVAN DICKENS 4 MACARIO MACARIO METHYLPRE DNISOLONE ACETATE 80 MG SUSCEPTIB 90875 SON[facility]O HEAD LTY STDY 4 [facility] ANTIMICRB INC INC IAL MICRO/AGA R DILUTJ CULTURE 25925 [facility] HEAD BCT 4 [facility] ISOL&PRSM INC INC PTV ID ISOLATE EA URINE CULTURE 08136 SON[facility]O HEAD BACTERIAL 4 [facility] INC INC QUANTTATI VE COLONY COUNT URINE RADEX [address] WOOTEN TRA SPINE 4 CERVICAL 4 OR 5 VIEWS GROUND A0425 [facility] 3 CASI LANCE PER CO EMS CO EMS STATUTE [facility] 33043 MOUL[place] JAM MOULTON JAM HEAD/BRAI 3 N W/O CONTRAST MATERIAL AMB A0427 [facility] SERVICE 3 CASI LANCE ALS CO EMS CO EMS EMERGENCY TRANSPORT LEVEL 1 THERAPEUT 88969 FIELD AMB FIELD AMB IC 3 PROPHYLAC TIC/DX INJECTION SUBQ/IM INJECTION J1885 FIELD AMB FIELD AMB 3 KETOROLAC TROMETHAM INE PER 15 MG SLINGS A4565 [facility] 3 RADEX 64837 LENA LENA SHOULDER 3 [facility] COMPLETE MINIMUM 2 [place] [address] [facility] AMYLASE 3 [place] [address] [facility] S[facility] LIPASE 3 [place] [address] [facility] AMYLASE 3 JOCELYNN PATTERSONA BILIRUBIN 42591 [facility] TOTAL 3 JEA JEA TRANSFERA 16596 [facility] KILPE[facility] SE 3 JOCELYNN PATTERSONA ASPARTATE AMINO AST SGOT TRANSFERA 68774 [facility] KILPE[facility] SE 3 JOCELYNN PATTERSONA ALANINE AMINO ALT SGPT ALBUMIN 50834 [facility] SERUM 3 JOCELYNN JEA PLASMA/ OLE BLOOD PROTEIN 13732 [facility] XCPT 3 JOCELYNN CBAEZAS REFRACTOM ETRY SERUM PLASMA/ L BLD BLOOD 34479 [facility] COUNT 3 JEA JEA COMPLETE AUTO&[place] [address] [facility] KILPE[facility] PHOSPHATA 3 JOCELYNN CABEZAS SE ALKALINE APPL 42320 LISET HUTCHINS MODALITY 3 FAUZIA FAUZIA 1/> AREAS ELEC STIMJ UNATTENDE D THERAPEUT 49946 [facility] HUTCHINS IC PX 1/> 3 FAUZIA FAUZIA AREAS [place]ACH [place] [address] LISET HUTCHINS 1/> AREAS 3 FAUZIA FAUZIA EACH 15 MIN NEUROMUSC REEDUCA CHIROPRAC 30246 [facility] HUTCHINS TIC 3 FAUZIA FAUZIA MANIPULAT JACK [place] SPINAL 3-4 REGIONS CHIROPRAC 94114 [facility]IS[facility] HUTCHINS TIC 3 FAUZIA FAUZIA MANIPULAT JACK TX SPINAL 3-4 REGIONS APPL 14984 [facility] MODALITY 3 FAUZIA FAUZIA 1/> AREAS ULTRASOUN D EA 15 MIN THERAPEUT 63946 L[facility] HUTCHINS IC PX 1/> 3 FAUZIA FAUZIA AREAS EACH 15 MIN EXERCISES APPL 53388 [facility]UTCH[facility] MODALITY 3 FAUZIA FAUZIA 1/> AREAS ELEC STIMJ UNATTENDE D IAADIADOO 31121 HARPEL HARPEL 3 KT KT TRICHOMON VAGINALIS IADNA 69474 HARPEL HARPEL NEISSERIA 3 KT KT GONORRHOE AE DIRECT PROBE TQ CULTURE 04054 HARPEL HARPEL CHLAMYDIA 3 KT KT ANY SOURCE IADNA 19746 HARPEL HARPEL HERPES 3 KT KT SIMPLX VIRUS DIRECT PROBE TQ URINLS 82266 HARPEL HARPEL DIP 3 KT KT STICK/TAB LET REAGNT NON-AUTO MICRSCPY ANE 98276 [facility] CENTIMOLE UPPER GI 3 ZOH ZOH ENDOSCOPY PROXIMAL TO DUODENUM EGD 79927 NICKL III NICKL III INTRMURAL 3 KHRIS KHRIS NEEDLE ASPIR/BIO P ALTERED ANATOMY CYTP FINE 49356 JESI JESI NDL 3 WENDY WENDY ASPIRATE IMMT CYTOHIST STD DX 1ST CYTP EVAL 64923 JESI JESI FINE 3 WENDY WENDY NEEDLE ASPIRATE INTERP & REPORT CATHETER C17[address] [facility] INTRAVASC 3 Y Y [facility] ULTRASOUN D RINGERS J7120 [facility] LACTATE 3 Y Y INFUSION [facility] UP TO 1000 CC INJECTION J03[address] [facility] 3 Y [facility] UP TO 20 MG INJECTION J[address] [facility] 3 Y [facility] ON HCL PER 1 MG ESOPHAGOG 88660 STROUD ROBERT STROUD ROBERT ASTRODUOD 3 ENOSCOPY TRANSORAL DIAGNOSTI C ANES 05026 EUGENIA GUEVARA UPPER GI 3 ENDOSCOPY PROXIMAL TO DUODENUM URINLS 98012 HARPEL HARPEL DIP 3 KT KT STICK/[place] [address] LENA LENA ABDOMEN & 3 [facility] PELVIS W/CONTRAS T MATERIAL ECG 45379 PETE BAEZA WENDY ROUTINE 3 EMERGENCY ECG SERVICES W/LEAST 12 LDS I&[place] [address] SONIDO SONIDO INFUSION 3 [facility] THERAPY/P INC INC ROPHYLAXI S /DX 1ST TO 1 HR THERAPEUT 57448 SONIDO SONIDO IC 3 [facility] INJECTION INC INC IV PUSH EACH NEW DRUG BLOOD 03066 SONIDO SONIDO COUNT 3 [facility] COMPLETE INC INC AUTO&AUTO DIFRNTL WBC INJECTION J2405 S[facility]O HEAD 3 [facility] ONDANSETR INC INC ON HCL PER 1 MG COMPREHEN 20335 SONIDO SONIDO SIVE 3 [facility] [place] [address] SONIDO SONIDO INFUSION 3 [facility] THERAPY INC INC PROPHYLAX IS/[place] [address] SONIDO HEAD ABDOMEN & 3 [facility] PELVIS INC INC W/O CONTRAST MATERIAL URNLS DIP 53003 SONIDO HEAD 3 [facility] STICK/TAB INC INC LET REAGENT AUTO MICROSCOP Y LIPID 32247 COMBINED COMBINED PANEL 3 PHYS[place] [address] COMBINED COMBINED THYROXINE 3 PHYSICIAN PHYSICIAN TOTAL S LA S LA IAADI 52299 COMBINED COMBINED INFFLUENZ 3 PHYSICIAN PHYSICIAN A A VIRUS S LA S LA IAADI 23294 COMBINED COMBINED INFLUENZA 3 PHYSICIAN PHYSICIAN B VIRUS S LA S LA CUL BACT 85055 COMBINED COMBINED XCPT 3 PHYSICIAN PHYSICIAN URINE S LA S LA BLOOD/STO OL AEROBIC ISOL THYROID 90744 COMBINED COMBINED HORM 3 PHYSICIAN PHYSICIAN UPTK/THYR S LA S LA OID HORMONE BINDING RATIO PARTICLE 50024 COMBINED COMBINED AGGLUTINA 3 PHYSICIAN PHYSICIAN TION S LA S LA SCREEN EACH ANTIBODY SEDIMENTA 87252 COMBINED COMBINED TION RATE 3 PHYSICIAN PHYSICIAN RBC S LA S LA NON-AUTOM ATED URNLS DIP 12245 HARPEL HARPEL 3 KT KT STICK/TAB LET RGNT NON-AUTO W/O MICRSCP COMPREHEN 01334 SON[facility]O HEAD SIVE 3 [facility] METABOLIC INC INC PANEL IAADI 59698 SONIDO HEAD INFLUENZA 3 [facility] B VIRUS INC INC IAADI 77822 SON[facility]O HEAD INFFLUENZ 3 [facility] A A VIRUS INC INC URNLS DIP 88637 SONIDO HEAD 3 [facility] STICK/TAB INC INC [place] [address] SONIDO HEAD LIPASE 3 [place] [address] SONIDO HEAD INFUSION 3 [facility] THERAPY/P INC INC ROPHYLAXI S /DX 1ST TO 1 HR THERAPEUT 51671 S[facility]O HEAD IC 3 [facility] INJECTION INC INC IV PUSH EACH NEW DRUG RADIOLOGI 18166 LENA LENA C EXAM 3 [facility] CHEST 2 VIEWS FRONTAL&L ATERAL BLOOD 75640 SONIDO HEAD COUNT 3 [facility] COMPLETE INC INC AUTO&AUTO DIFRNTL WBC INJECTION J2405 [facility]O HEAD 3 [facility] ONDANSETR INC INC ON HCL PER 1 MG APPL 93601 [facility]UTCHINS MODALITY 3 FAUZIA FAUZIA 1/> [place] [address] LISET HUTCHINS 1/> AREAS 3 FAUZIA FAUZIA EACH 15 MIN NEUROMUSC REEDUCA APPLICATI 67786 LISET HUTCHINS ON 3 FAUZIA FAUZIA MODALITY 1/> AREAS HOT/COLD PACKS CHIROPRAC 28701 LISET HUTCHINS TIC 3 FAUZIA FAUZIA MANIPULAT JACK TX SPINAL 3-4 REGIONS CHIROPRAC 04080 LISET HUTCHINS TIC 3 FAUZIA FAUZIA MANIPULAT JACK [place] SPINAL 3-4 REGIONS APPLICATI 10726 LISET HUTCHINS ON 3 FAUZIA FAUZIA MODALITY 1/> AREAS H[place] [address] LISET HUTCHINS 1/> AREAS 3 FAUZIA FAUZIA EACH 15 MIN NEUROMUSC REEDUCA APPL 31375 LISET HUTCHINS MODALITY 3 FAUZIA FAUZIA 1/> AREAS ELEC STIMJ UNATTENDE D RADIOLOGI 22368 LENA LENA C 3 [facility] EXAMINATI ON KNEE 3 VIEWS CULTURE 66461 SON[facility]O HEAD BACTERIAL 2 [facility] INC INC QUANTTATI VE COLONY COUNT URINE CULTURE 00668 [facility] HEAD BCT 2 [facility] ISOL&PRSM INC INC PTV ID ISOLATE EA URINE URINLS 04622 HARPEL HARPEL DIP 2 KT KT STICK/TAB LET REAGNT NON-AUTO MICRSCPY SUSCEPTIB 08713 SON[facility]O HEAD LTY STDY 2 [facility] ANTIMICRB INC INC IAL MICRO/AGA R DILUTJ URNLS DIP 03025 [facility]O HEAD 2 [facility] STICK/TAB INC INC LET REAGENT AUTO MICROSCOP Y THERAPEUT 75940 SONIDO HEAD IC 2 [facility] INJECTION INC [place] [address] SONIDO HEAD INFUSION 2 [facility] THERAPY/P INC INC ROPHYLAXI S /DX 1ST TO 1 HR 3D 36380 S[facility]O HEAD RENDERING 2 [facility] INC INC W/INTERP& [place] [address] SONIDO HEAD ABDOMEN & 2 [facility] PELVIS INC INC W/O CONTRAST MATERIAL URINLS 86333 HARPEL HARPEL DIP 2 KT KT STICK/TAB LET REAGNT NON-AUTO MICRSCPY HOSPITAL G0378 S[facility]O HEAD OBSERVATI 2 [facility] ON INC INC SERVICE PER HOUR TX PROC G0238 SON[facility]O HEAD IMPRV 2 [facility] RESP INC INC FUNCT NOT G0237 [facility] G0378 S[facility]O HEAD OBSERVATI 2 [facility] ON INC INC SERVICE PER HOUR NONINVASI 89375 SONIDO HEAD VE 2 [facility] EAR/PULSE INC INC OXIMETRY OVERNIGHT MONITOR BLOOD 00737 S[facility]O HEAD COUNT 2 [facility] [place] [address] SONIDO HEAD INFUSION 2 [facility] THERAPY/P INC INC ROPHYLAXI S /DX 1ST TO 1 HR THERAPEUT 77397 SONIDO HEAD IC 2 [facility] INJECTION INC INC IV PUSH EACH NEW DRUG URNLS DIP 15595 SONIDO HEAD 2 [facility] STICK/TAB INC INC LET REAGENT AUTO MICROSCOP Y SUSCEPTIB 04719 SONIDO HEAD LTY STDY 2 [facility]OSP ANTIMICRB INC INC IAL MICRO/AGA R DILUTJ LEVEL V 11231 PATHOLOGY PETE SURG 2 & GABBY PATHOLOGY CYTOLOGY LAB GROSS&MACARIO ROSCOPIC EXAM BLOOD 70746 SONIDO HEAD COUNT 2 [facility]OS[facility] HEMOGLOBI INC INC N VAG HYST 03732 SCHULSTAD SCHULSTAD 250 GM/< 2 LELO LELO W/RMVL TUBE&/OVA RY LAPS 30740 SON[facility]O HEAD W/VAG 2 [facility] HYSTERECT INC INC 250 GM/&RMVL TUBE&/OVA JAUN ANESTHESI 11224 COMMUNITY JOSE L ARABELLA A VAGINAL 2 ANESTH OF THE HYSTERECT BLUE VANE INCL BIOPSY URINE 47770 SONIDO HEAD 2 [facility] TEST INC INC VISUAL COLOR CMPRSN METHS CULTURE 60964 SONIDO HEAD BCT 2 [facility] ISOL&PRSM INC INC PTV ID ISOLATE EA URINE CULTURE 96521 SONIDO [place] BACTERIAL 2 [facility] INC INC QUANTTATI VE COLONY COUNT URINE THERAPEUT 11810 [facility]O HEAD IC 2 [facility] PROPHYLAC INC INC TIC/DX INJECTION SUBQ/IM SMR PRIM 74430 HARPEL HARPEL SRC WET 2 KT KT MOUNT NFCT AGT BLOOD 69712 SONIDO HEAD COUNT 2 [facility] COMPLETE INC INC AUTO&AUTO DIFRNTL WBC IADNA 08805 HARPEL HARPEL NEISSERIA 2 KT KT GONORRHOE AE DIRECT PROBE TQ CULTURE 99300 HARPEL HARPEL CHLAMYDIA 2 KT KT ANY SOURCE URINLS 38287 HARPEL HARPEL DIP 2 KT KT STICK/[place] [address] SONIDO HEAD HEAD/BRAI 2 [facility] N W/O INC INC CONTRAST MATERIAL CT ORBIT 01951 OWEN PAREDES SELLA/POS 2 [facility] T IMAGING FOSSA/[place] [address] SONIDO HEAD INFUSION 2 [facility] THERAPY/P INC INC ROPHYLAXI S /DX 1ST TO 1 HR THERAPEUT 66631 S[facility]O HEAD IC 2 [facility] INJECTION INC INC IV PUSH EACH NEW DRUG SUSCEPTIB 90656 MEDICAL MEDICAL ILITY 2 DIAGNOSTI [facility]AGNOSTI [facility] ANTIMICRO BIAL DISK METHOD IADNA NOS 16853 MEDICAL MEDICAL 2 DIAGNOSTI DIAGNOSTI AMPLIFIED [facility] PROBE TQ EACH ORGANISM IADNA 58630 MEDICAL MEDICAL STREPTOCO 2 DIAGNOSTI DIAGNOSTI CCUS [facility] GROUP B AMPLIFIED PROBE TQ THERAPEUT 16395 [facility]O HEAD IC 2 [facility] PROPHYLAC INC INC TIC/DX INJECTION SUBQ/IM 3D 72680 SON[facility]O ARTURO KIR RENDERING 2 [facility] INC W/INTERP& POSTPROC DIFF WORK STATION CT UPPER 31436 SONIDO SEKOU EXTREMITY 2 [facility] PING W/O INC CONTRAST MATERIAL URINE 23281 SONIDO HEAD 2 [facility] TEST INC INC VISUAL COLOR CMPRSN METHS MODERATE 46420 PETE MYERS SEDATJ 2 EMERGENCY [facility] SAME SERVICES PHYS/QHP 5/>YRS INIT 30 [place] [address] PETE MYERS SHOULDER 2 EMERGENCY [facility] DISLC SERVICES W/MANIPUL ATION W/O ANES THER 58669 SONIDO [place] PROPH/DX 2 [facility] NJX IV INC INC PUSH SINGLE/1S T SBST/DRUG RADEX 08700 SONIDO BRIDGERMER SPINE 2 [facility] Y CO CERVICAL INC HEALTH 6 OR MORE CENTER VIEWS RADEX 41700 OWEN FISCHERUTCHER SHOULDER 2 [facility] COMPLETE IMAGING MINIMUM 2 ASS VIEWS RADEX 68784 OWEN FISCHERUTCHER SPINE 2 [facility] CERVICAL IMAGING 4 OR 5 ASS VIEWS DRUG SCR G0434 HIEU HAM HIEU HAM NOT 2 CHROMATOG RAPHIC; ANY NUMBER PT ENC MANUAL 62625 [facility] HEAD THERAPY 2 [facility] TQS 1/> INC INC REGIONS EACH 15 MINUTES APPL 94512 SON[facility]O HEAD MODALITY 2 [facility] 1/> AREAS INC INC VASOPNEUM ATIC DEVICES THERAPEUT 66807 SONIDO HEAD IC PX 1/> 2 [facility] AREAS INC INC EACH 15 MIN EXERCISES APPL 86052 SON[facility]O HEAD MODALITY 2 [facility] 1/> AREAS INC INC ELEC STIMJ UNATTENDE D PHYSICAL 92834 SONIDO HEAD THERAPY 2 [facility] EVALUATIO INC INC N INJECTION 94650 [place] MENON 2 ANESTHESI MACARIO ANESTHETI A GROUP C AGENT PSC SUPRASCAP ULAR NERVE INJECTION 03534 [place] ANES 2 ANESTHESI MACARIO OTHER A GROUP PERIPHERA PSC L NERVE/BRA [facility] ARTHROSCO [address] WO[place] TRA PY 2 SHOULDER DISTAL CLAVICULE CTOMY ANES 17361 [place] MEN[place] ARTHRS 2 ANESTHESI MACARIO HUMERAL A GROUP H/N PSC STRNCLAV & SHOULDER NOS ARTHROSCO [address] WOOTEN TRA PY 2 SHOULDER SURGICAL CAPSULORR HAPHY SINGLE 50516 [place] NERVE 2 ANESTHESI MACARIO BLOCK A GROUP INJECTION PSC ARM NERVE BASIC 47824 [facility] METABOLIC 2 N N PANEL [facility] CALCIUM HOSPITA HOSPITA TOTAL GONADOTRO 13340 [facility] PIN 2 N N CHORIONIC [facility] HOSPITA HOSPITA QUALITATI VE COLLECTIO 68534 [facility] N VENOUS 2 N N BLOOD [facility] VENIPUNCT HOSPITA HOSPITA URE BLOOD 79184 [facility] COUNT 2 N N COMPLETE [facility] AUTO&AUTO HOSPITA HOSPITA D[place]RNTL WBC [place] ANY [address] [place] TRA JT UPPER 2 EXTREMITY W/O CONTRAST MATRL RADEX 16[address] [place] [address] [place] TRA SHOULDER 2 COMPLETE MINIMUM 2 [place] [address] MARY JANE HINTON TRANSVAGI 2 ELIZABETH ELIZABETH NAL CUL BACT 44952 COMBINED COMBINED XCPT 2 PHYSICIAN PHYSICIAN URINE S LA S LA BLOOD/STO OL AEROBIC ISOL SMR PRIM 85576 MARY JANE HINTON SRC WET 2 ELIZABETH ELIZABETH MOUNT NFCT AGT ANTIBODY 65157 COMBINED COMBINED CHLAMYDIA 2 PHYSICIAN PHYSICIAN S LA S LA URNLS DIP 90997 MARY JANE HINTON 2 ELIZABETH ELIZABETH STICK/TAB LET RGNT NON-AUTO W/O MICRSCP CLOSED 23140 REESE PING REESE PING TREATMENT 1 NASAL FRACTURE W/[place] [address] IDAHO LENA MAXILLOFA 1 [facility] CIAL W/[place] [address] SON[place]O HEAD CERVICAL 1 [facility] SPINE W/O INC INC CONTRAST MATERIAL INJECTION J2405 SONIDO [place] 1 [facility] HOSP ONDANSETR INC INC [place] H[place] [address] [place] [address] IDAHO LENA HEAD/BRAI 1 [facility] N W/O IMAGING CONTRAST ASS MATERIAL URINE 26082 S[facility] HEAD 1 [facility] TEST INC INC VISUAL COLOR CMPRSN METHS 3D 90352 [facility] HEAD RENDERING 1 [facility] INC INC W/INTERP& POSTPROC DIFF WORK STATION 3D 35262 S[place] HEAD RENDERING 1 [facility] W/INTERP INC INC & POSTPROCE SS SUPERVISI ON INITIAL 31779 ROBERTO MEJIA MORTEZA INPATIENT 1 CONSULT NEW/ESTAB PT 20 MIN MRI 77974 [facility] [place] TRA SPINAL 1 [place] CANAL ORTHOPAED THORACIC ICS PLC W/O CONTRAST MATRL RADEX 02665 [facility]AL [place] TRA SPINE 1 [place] THORACIC ORTHOPAED 2 VIEWS ICS PLC RADEX 86656 I[place]HO LENA SPINE 1 [facility] THORACIC IMAGING 3 VIEWS ASS URINE 40471 [facility]O SONIDO 1 [facility] TEST INC INC VISUAL COLOR CMPRSN METHS RADEX 95972 [place] LENA SPINE 1 [facility] LUMBOSACR IMAGING AL ASS MINIMUM 4 VIEWS SUSCEPTIB 33241 [facility] HEAD LTY STDY 1 [facility] ANTIMICRB INC INC IAL MICRO/AGA R DILUTJ URNLS DIP 86896 [facility] HEAD 1 [facility] STICK/TAB INC INC LET REAGENT AUTO MICROSCOP Y URINE 75269 [facility] HEAD 1 [facility] TEST INC INC VISUAL COLOR CMPRSN METHS CULTURE 68533 S[facility] HEAD BACTERIAL 1 [facility] [place] [address] I[place] LENA TRANSVAGI 1 [facility] NAL IMAGING ASS CULTURE 86310 S[facility] HEAD BCT 1 [facility] ISOL&PRSM [place] [address] [place] THORACIC 1 [facility] SPINE W/O SERV CONTRAST FOUNDATIO MATERIAL RADEX 26863 [place] SHOULDER 1 [facility] COMPLETE SERV MINIMUM [address] [place] [address] [place] CERVICAL 1 [facility] SPINE W/[place] [address] [facility] HEAD CERVICAL 1 [facility] SPINE W/O INC INC CONTRAST MATERIAL URNLS DIP 04552 [facility] HEAD 1 [facility] STICK/TAB INC INC LET REAGENT AUTO MICROSCOP Y 3D 18780 [facility] HEAD RENDERING 1 [facility] INC INC W/INTERP& POSTPROC DIFF WORK STATION URINE 76008 SON[facility]O SONIDO 1 [facility] TEST INC INC VISUAL COLOR CMPRSN METHS URINE 35482 [facility] HEAD 1 [facility] TEST INC [place] [address] S[facility] HEAD TRANSVAGI 1 [facility] NAL INC INC CULTURE 74865 S[facility] HEAD BCT 1 [facility] ISOL&PRSM INC INC PTV ID ISOLATE EA URINE CULTURE 77214 [facility] HEAD BACTERIAL 1 [facility] INC INC QUANTTATI VE COLONY COUNT URINE COMPREHEN 37655 [facility] SIVE 1 [facility] METABOLIC INC INC PANEL URNLS DIP 66828 [facility] HEAD 1 [facility] STICK/TAB INC INC [place] [address] [facility] HEAD LIPASE 1 [facility] INC INC SUSCEPTIB 50793 [facility] LTY STDY 1 [facility] ANTIMICRB INC INC IAL MICRO/AGA R DILUTJ BLOOD 27134 [facility] HEAD COUNT 1 [facility] COMPLETE INC INC AUTO&[place] [address] [facility] HEAD AMYLASE 1 [facility] INC INC COLPOSCOP [address] [facility] Y VULVA [facility] W/BIOPSY [facility] APRYL RADEX [address] [facility] SPINE 1 Y Y THORACIC [facility] 2 VIEWS RADEX 66538 [facility] SPINE 1 RADIOLOGY THORACIC 2 VIEWS RADEX 27925 [facility] SPINE 1 RADIOLOGY CERVICAL 2 OR 3 [place] [address] [facility] 1 EMERGENCY DEV VERTEBRAL SERVICES PROCESS FRACTURE RADEX 02330 IDAHO LENA SHOULDER 1 [facility] COMPLETE IMAGING MINIMUM 2 ASS VIEWS SBSQ 57609 GARIMA SON OBSERVATI 1 MEDICAL LER TEJINDER ON SERV CARE/DAY FOUNDATIO 25 MINUTES AMB [id number] [facility] SERVICE 1 AMBULANCE AMBULANCE ALS SERVICE SERVICE EMERGENCY TRANSPORT LEVEL 1 AMB A0431 AIR AIR SERVICE 1 METHODS METHODS CONVNTION [facility] AIR SRVC TRANSPORT [address] LAPS 35783 [facility] FULG/EXC [facility] OVARY CLINIC OF VISCERA/P APRYL ERITONEAL SURFACE ANESTHESI 42074 COMMUNITY ZEINA A 1 ANESTH MORA INTRAPERI OF THE TONEAL BLUE [place] [address] [facility] INFUSION 1 [facility] THERAPY INC INC PROPHYLAX IS/DX EA HOUR OTH 6919 [facility] EXCISION/ 1 [facility] DESTRUC INC INC UTERUS&JOSE PPORTING STRCT GONADOTRO 52026 [facility] PIN 1 [facility] CHORIONIC INC INC QUALITATI VE BLOOD 47131 [facility] COUNT 1 [facility] COMPLETE INC INC AUTO&AUTO DIFRNTL WBC BASIC 73278 [facility] METABOLIC 1 [facility] PANEL INC INC CALCIUM TOTAL URINE 45731 [facility] HEAD 1 [facility] TEST INC INC VISUAL COLOR CMPRSN METHS CULTURE 15965 [facility] BACTERIAL 1 [facility] INC INC QUANTTATI VE COLONY COUNT URINE CULTURE 80284 S[facility] BCT 1 [facility] ISOL&PRSM INC INC PTV ID ISOLATE EA URINE SUSCEPTIB 10665 S[facility] LTY STDY 1 [facility] ANTIMICRB INC INC IAL MICRO/AGA R DILUTJ URNLS DIP 25383 [facility] HEAD 1 [facility] STICK/TAB INC INC [place] [address] PATHOLOGY PATHOLOGY SURG 1 & & PATHOLOGY CYTOLOGY CYTOLOGY LAB LAB GROSS&MACARIO ROSCOPIC EXAM URINE 66816 [facility] TEST CLINIC OF VISUAL APRYL COLOR CMPRSN METHS COLPOSCOP 67126 [facility] Y CERVIX 1 [facility] BX CERVIX CLINIC OF & APRYL ENDOCRV CURRETAGE REMOVAL 57360 [facility] INTRAUTER 1 [facility] INE CLINIC OF DEVICE APRYL IUD CYTP C/V 66054 PATHOLOGY PATHOLOGY AUTO THIN 1 & & LYR CYTOLOGY CYTOLOGY PREPJ SCR LAB LAB MNL RESCR PHYS CYTP 45419 PATHOLOGY PATHOLOGY CERVICAL/ 1 & & VAGINAL CYTOLOGY CYTOLOGY REQ LAB LAB INTERP PHYSICIAN RADEX ABD 29146 [facility] AQT ABD IMAGING W/S/E/D ASS VIEWS 1 VIEW CH ECG 88467 [facility] ROUTINE 0 [facility] ECG INC INC W/LEAST 12 LDS TRCG ONLY W/O I&R URNLS DIP 42258 [facility] HEAD 0 [facility] STICK/TAB INC INC [place] [address] [facility] LIPASE 0 [facility] INC INC URINE 65413 S[facility] HEAD 0 [facility] TEST INC INC VISUAL COLOR CMPRSN METHS COMPREHEN 79096 S[facility] SIVE 0 [facility] [place] [address] [facility] AMYLASE 0 [facility] INC INC ECG 43555 S[facility]O JOSÉ MANUEL, ROUTINE 0 [facility] W/LEAST PROF SERV 12 LDS I&R ONLY BLOOD 13256 SON[facility]O SONIDO COUNT 0 [facility] COMPLETE INC INC AUTO&AUTO DIFRNTL WBC DESTRUCTI 93906 [facility], ON 0 [facility] VLAD J LESIONS CLINIC OF VULVA SIMPLE [place] [facility] COLPOSCOP 64254 [facility], Y VULVA 0 [facility]ALTH [facility] J [facility]IN[facility] OF [place] [facility] MRI 08604 PHYSICIAN DARIN SPINAL 0 Gilbert Ramon CANAL SERVICES CERVICAL PSC W/O CONTRAST MATRL APPL 95666 S[facility] MODALITY 0 [facility] 1/> AREAS INC INC ELEC STIMJ UNATTENDE D APPL 65712 S[facility] MODALITY 0 [facility] 1/> AREAS INC INC VASOPNEUM ATIC DEVICES APPLICATI 26859 S[facility] ON 0 [facility] MODALITY INC INC 1/> AREAS HOT/COLD PACKS APPL 00155 S[facility] MODALITY 0 [facility] 1/> AREAS INC INC ULTRASOUN D EA 15 MIN THERAPEUT 65524 [facility] IC PX 1/> 0 [facility] AREAS INC INC EACH 15 MIN EXERCISES THERAPEUT 05101 [facility] IC PX 1/> 0 [facility] AREAS INC INC EACH 15 MIN EXERCISES PHYSICAL 16955 S[facility] THERAPY 0 [facility] EVALUATIO INC INC N APPL 43978 S[facility] MODALITY 0 [facility] 1/> AREAS INC INC ULTRASOUN D EA 15 MIN APPLICATI 31722 [facility] ON 0 [facility] MODALITY INC INC 1/> AREAS HOT/COLD PACKS APPL 07221 S[facility] MODALITY 0 [facility] 1/> AREAS INC INC ELEC STIMJ UNATTENDE D PSYCHOLOG 33717 PHYSICIAN MARY WEBSTER 9 Gilbert Ramon TESTING SERVICES ADMN BY [facility] [place]ail [place] ANY [address] [facility] UPPER 9 Y Y EXTREMITY [facility] W/O CONTRAST MATRL RADEX 99848 GARIMA ROBERTO, SHOULDER 9 MEDICAL TITO D COMPLETE SERV MINIMUM 2 FOUNDATIO VIEWS URINE 28773 [facility], 9 [facility] TEST CLINIC OF VISUAL COLOR [place] CMPRSN [facility] METHS RADEX 90427 [facility] SHOULDER 9 [facility] COMPLETE INC INC MINIMUM 2 VIEWS RADEX 75164 IDAHO LENA, SPINE 9 MEDICAL NARGIS CERVICAL IMAGING 6 OR MORE ASSOCIATE VIEWS S URINE 48137 VARUN R HARPEL, 9 SANTOSH Yañez TEST VISUAL COLOR CMPRSN METHS CUL BACT 28317 [facility] AEROBIC 9 [facility] ADDL INC INC METHS DEFINITIV E EA ISOL CULTURE 67024 [facility] SONIDO BACTERIAL 9 [facility] ANY INC INC SOURCE ANAEROBIC ISO&ID CUL BACT 48312 [facility] XCPT 9 [facility] URINE INC INC BLOOD/[place] [address] SON[facility] SONIDO INFUSION 9 [facility] THERAPY INC INC PROPHYLAX IS/DX EA HOUR I&D 97184 [facility], VULVA/PER 9 [facility] INEAL CLINIC OF ABSCESS [facility] [facility] ANESTHESI 53294 COMMUNITY BIB, Marjan VAGINAL 9 ANESTH SHERRELL A OF THE PROCEDURE BLUEGRASS W/BIOPSY NOS SUSCEPTIB 38844 SON[facility]O SONIDO LTY STDY 9 [facility] ANTIMICRB INC INC IAL MICRO/AGA R DILUTJ THERAPEUT 64705 [facility] IC 9 [facility] INJECTION [place] [address] S[facility] INFUSION 9 [facility] THERAPY/P INC INC ROPHYLAXI S /DX 1ST TO 1 HR OTHER 7109 [facility] INCISION 9 [facility] OF VULVA INC INC AND PERINEUM BLOOD 35967 S[facility] COUNT 9 [facility] COMPLETE INC INC AUTO&AUTO DIFRNTL WBC BASIC 76508 S[facility] METABOLIC 9 [facility] PANEL INC INC CALCIUM TOTAL BASIC 85272 S[facility] METABOLIC 9 [facility] PANEL INC INC CALCIUM TOTAL URNLS DIP 54815 [facility] HEAD 9 [facility] STICK/TAB INC INC LET REAGENT AUTO MICROSCOP Y BLOOD 39707 [facility] COUNT 9 [facility] COMPLETE INC INC AUTO&[place] I [address] PATHOLOGY PATHOLOGY SURG 9 & & PATHOLOGY CYTOLOGY CYTOLOGY GROSS LAB LAB [place] [address] PATHOLOGY PATHOLOGY SURG 9 & & PATHOLOGY CYTOLOGY CYTOLOGY LAB LAB GROSS&MACARIO ROSCOPIC EXAM COLPOSCOP 43139 [facility], Y CERVIX 9 [facility] VLAD J BX CERVIX CLINIC OF & ENDOCRV [place] [facility] BREAST 59227 [facility] REAL 9 [facility] TIME INC INC W/IMAGE DOCUMENTA TION THERAPEUT 92191 [facility], IC 9 [facility] VL[facility] J PROPHYLAC CLINIC OF TIC/DX INJECTION [place] SUBQ/IM PLLC CYTP C/V 95182 PATHOLOGY PATHOLOGY AUTO THIN 9 & & LYR CYTOLOGY CYTOLOGY PREPJ SCR LAB LAB MNL RESCR PHYS CYTP 24272 PATHOLOGY PATHOLOGY CERVICAL/ 9 & & VAGINAL CYTOLOGY CYTOLOGY REQ LAB LAB INTERP PHYSICIAN THERAPEUT 65290 [facility], IC 9 [facility] J PROPHYLAC CLINIC OF TIC/DX INJECTION [place] SUBQ/IM PLLC URNLS DIP 32830 [facility], 9 [facility] STICK/TAB CLINIC OF LET RGNT NON-AUTO [place] W/O PLLC MICRSCP URINE 79266 [facility] HEAD 9 [facility] TEST INC INC VISUAL COLOR CMPRSN METHS URNLS DIP 96345 [facility] HEAD 9 [facility] STICK/TAB INC INC LET REAGENT AUTO MICROSCOP Y URNLS DIP 04402 [facility], 9 [facility] STICK/TAB CLINIC OF LET RGNT NON-AUTO [place] W/O PLLC MICRSCP IADNA 96294 [facility] CHLAMYDIA 8 [facility] INC INC TRACHOMAT IS AMPLIFIED PROBE TQ SMR PRIM 29617 [facility] SRC WET 8 [facility] MOUNT INC INC NFCT AGT CUL BACT 02017 [facility] XCPT 8 [facility] URINE INC INC BLOOD/STO OL AEROBIC ISOL URINE 99427 [facility] HEAD 8 [facility] TEST INC INC VISUAL COLOR CMPRSN METHS URNLS DIP 74510 SONIDO SONIDO 8 [facility] STICK/TAB INC INC LET REAGENT AUTO MICROSCOP Y IADNA 20440 [facility] NEISSERIA 8 [facility] INC INC GONORRHOE AE AMPLIFIED PROBE TQ BLOOD 07822 [facility] COUNT 8 [facility] COMPLETE INC INC AUTO&AUTO DIFRNTL WBC SEDIMENTA 97601 [facility] TION RATE 8 [facility] RBC INC INC NON-AUTOM ATED SUSCEPTIB 22428 S[facility] LTY STDY 8 [facility] ANTIMICRB INC INC IAL MICRO/AGA R DILUTJ CUL BACT 96888 [facility] XCPT 8 [facility] URINE INC INC BLOOD/STO OL AEROBIC ISOL OPHTH 77871 DEIRDRE GILMORE, MEDICAL 8 ALAN A ALAN A XM&EVAL COMPRHNSV ESTAB PT 1/> [place] [address] [facility], TRANSVAGI 8 [facility] RADEX [address] [facility] SHOULDER 8 Y Y [facility] MINIMUM 2 VIEWS 41594 [facility], TRANSVAGI 8 HEALTH VLAD Juan [facility] PELVIS 63948 IDAHO LENA, W/O 8 MEDICAL NARGIS CONTRAST IMAGING MATERIAL ASSOCIATE S 3D 80456 IDAHO LENA, RENDERING 8 MEDICAL NARGIS IMAGING W/INTERP& [place]OCI[place] [address] IDAHO LENA, ABDOMEN 8 MEDICAL NARGIS W/O IMAGING CONTRAST ASSOCIATE MATERIAL S MRI 56531 NARGIS C LENA, SPINAL 8 LENA NARGIS CANAL CERVICAL W/O CONTRAST MATRL 3D 51164 NARGIS C LENA, RENDERING 8 LENA NARGIS W/INTERP & POSTPROCE SS SUPERVISI ON RADEX 25858 IDAHO CLARA, SPINE 8 MEDICAL EMIGDIO P CERVICAL IMAGING 6 OR MORE ASSOCIATE VIEWS S [place] ANY 8[address]51 NARGIS C LENA, JT UPPER 8 LENA NARGIS EXTREMITY W/O CONTRAST MATRL CT UPPER 44934 [facility] [place] CHILD, EXTREMITY 8 RADIOLOGY ROSANGELA P W/O CONTRAST MATERIAL RADEX 91071 [facility] SHOULDER 8 N N COMPLETE [facility] MINIMUM 2 [facility] VIEWS RADIOLOGI 39284 KAPIL DICK C 8 DON R DON R EXAMINATI ON CHEST SINGLE VIEW FRONTAL CUL BACT 54199 [facility] AEROBIC 8 [facility] ADDL INC INC METHS DEFINITIV E EA ISOL CUL BACT 74316 [facility] XCPT 8 [facility] URINE INC INC BLOOD/STO OL AEROBIC ISOL INCISION 05449 STEVEN HARRIS & 8 , MICHELLE , MICHELLE DRAINAGE ABSCESS SIMPLE/SI NGLE SUSCEPTIB 05466 [facility] LTY STDY 8 [facility] ANTIMICRB INC INC IAL MICRO/AGA R DILUTJ IAADI 64111 [facility] INFFLUENZ 8 [facility] A A VIRUS INC INC IAADI 23273 S[facility] INFLUENZA 8 [facility] [place] [address] [facility] THER 8 [facility] PROPH/DX INC INC 1ST >1 HR INSJ 33168 [facility], NON-NDWEL 8 [facility] [address] [facility] THER 8 [facility] PROPH/DX INC INC 1ST >1 HR BASIC 86398 S[facility] METABOLIC 8 [facility] PANEL INC INC CALCIUM TOTAL URINE 94864 [facility] HEAD 8 [facility] TEST INC INC VISUAL COLOR CMPRSN METHS 3D 59356 SONIDOPANKAJ YORKON RENDERING 8 [facility] INC INC W/INTERP& POSTPROC DIFF WORK STATION CT PELVIS 42002 IDAHO CLARA, W/O 8 MEDICAL EMIGDIO P CONTRAST IMAGING MATERIAL ASSOCIATE S URNLS DIP 46098 [facility] HEAD 8 [facility] STICK/TAB INC INC LET REAGENT AUTO MICROSCOP Y BLOOD 14894 [facility] HEAD COUNT 8 [facility] COMPLETE INC INC AUTO&[place] [address] IDAHO CLARA, ABDOMEN 8 MEDICAL EMIGDIO P W/O IMAGING CONTRAST ASSOCIATE MATERIAL S BLOOD 95167 SONIDOPANKAJ YORKON COUNT 8 [facility] COMPLETE INC INC AUTO&AUTO DIFRNTL WBC UROGRAPHY 39843 IDAHO LENA, IV W/WO 8 MEDICAL NARGIS KUB W/WO IMAGING TOMOGRAPH ASSOCIATE Y S BASIC 06643 SONIDO YORKON METABOLIC 8 [facility] PANEL INC INC CALCIUM TOTAL OTHER 45.13 Venkat Stroud MD OF INTEST Encounters Encounter Start End Date Code Location Performer Type Date EMERGENCY 58421 [facility] 7 7 [facility] DEPARTMEN INC T VISIT LOW/MODER SEVERITY HOSPITAL [facility] Baptiste 7 7 [facility] OUTPATIEN INC T EMERGENCY 11597 AYAD KING 7 7 PHYSICIAN DEPARTMEN S, PLLC T VISIT HIGH/URGE NT SEVERITY HOSPITAL SONIDO - 7 7 [facility] EMERGENCY 90623 AYAD PERES DEPT 7 7 PHYSICIAN VISIT S, PLLC HIGH SEVERITY& THREAT FUNCJ EMERGENCY 46599 SONIDO 7 7 [facility] HIGH/URGE NT SEVERITY EMERGENCY 35335 SONIDO 7 7 [facility] T VISIT HIGH/URGE NT SEVERITY HOSPITAL SONIDO - 7 7 [facility] 05296 AYAD DICKENS 7 7 PHYSICIAN DEPARTMEN S, PLLC T VISIT MODERATE SEVERITY OFFICE 69124 KATIE FERNANDEZ OUTPATIEN 7 7 T VISIT ORTHOPAED 15 ICS PSC MINUTES OFFICE 97009 KATIE FERNANDEZ OUTPATIEN 7 7 T NEW 30 ORTHOPAED MINUTES ICS PSC OFFICE 77763 [facility] 7 7 PHYSICIAN T VISIT GROUP 25 MINUTES [facility] - 6 6 [facility] T OFFICE 24175 GARIMA LONG CONSULTAT 6 6 MEDICAL ION SERV NEW/ESTAB FOUNDATIO PATIENT N 60 MIN [facility] - 6 6 [facility] T EMERGENCY 33865 AYAD ANAYA DEPT 6 6 PHYSICIAN FOR VISIT S, PLLC HIGH SEVERITY& THREAT FUNCJ PERIODIC 43862 [facility] SANTOSH PREVENTIV 6 6 PHYSICIAN KT Mejia MED EST S GROUP PATIENT 18-39 YRS HOSPITAL [place] - 6 6 [facility] T EMERGENCY 35527 AYAD ESCOTO DEPT 6 6 PHYSICIAN MERCEDES VISIT S, PLLC HIGH SEVERITY& THREAT FUNCJ EMERGENCY 77337 [facility]O 6 6 [facility] DEPARTMEN INC T VISIT HIGH/URGE NT SEVERITY OFFICE 43073 [facility] IVAN OUTPATIEN 6 6 PHYSICIAN MACARIO T VISIT S GROUP 15 MINUTES OFFICE 43948 VARUN FROST OUTPATIEN 6 6 SANTOSH MERAZ T VISIT 15 MINUTES OFFICE 05724 [facility] JOSE GUADALUPE OUTPATIEN 6 6 PHYSICIAN T VISIT GROUP 15 MINUTES HOSPITAL PHYSICIAN - OTHER 6 6 [facility] SONIOD - 6 6 [facility] OUTPATIEN [facility] T OFFICE 08908 EAR, NOSE SHASHY OUTPATIEN 6 6 AND ABHIJIT T NEW 45 THROAT MINUTES [facility] SONID[facility] - 6 6 [facility]IEN [facility] SONIDO - 6 6 [facility] OUTPATIEN [facility] T EMERGENCY 79876 AYAD CARDENAS DEPT 6 6 PHYSICIAN U STEPHON VISIT S, [facility] HIGH SEVERITY& THREAT FUNCJ EMERGENCY 48031 SONIDO 6 6 [facility]IGH/URGE NT SEVERITY OFFICE 47534 [facility] NEUMANN TER OUTPATIEN 6 6 PHYSICIAN T VISIT S GROUP 25 MINUTES OFFICE 96465 [facility] 6 6 IDAHO THERON T VISIT ADULT & 15 PED MINUTES OFFICE 27654 [facility] CONSULTAT 6 6 IDAHO THERON ION ADULT & NEW/ESTAB PED PATIENT 60 MIN HOSPITAL PHYSICIAN - OTHER 6 6 [facility] SONIDO - 5 5 [facility] OUTPATIEN INC T OFFICE 82507 Marjan GAINES OUTPATIEN 5 5 THUY ROACH T VISIT PSC 25 MINUTES OFFICE 48808 [facility] NEUMANN TER OUTPATIEN 5 5 PHYSICIAN T VISIT S GROUP 15 MINUTES OFFICE 63377 SON[facility]O SHI OUTPATIEN 5 5 [facility] 10 MINUTES OFFICE 74790 SONIDO MARCY OUTPATIEN 5 5 [facility] 10 MINUTES OFFICE 26590 DEIRDRE KERNS OUTPATIEN 5 5 T VISIT 10 MIN[address]ES OFFICE [address] OUTPATIEN 5 5 [facility] 15 MINUTES OFFICE 12634 SONIDO JOSE GUADALUPE OUTPATIEN 5 5 [facility] 15 MINUTES HOSPITAL SONIDO - 5 5 [facility] OUTPATIEN [facility] OFFICE 52171 SONIDO JOSE GUADALUPE OUTPATIEN 5 5 [facility] 15 MINUTES EMERGENCY 85673 [facility] IVAN DEPT 5 5 PHYSICIAN [facility] VISIT S, PLLC HIGH SEVERITY& THREAT FUNJ OFFICE 44448 SONIDO VIDAL OUTPATIEN 5 5 [facility] 15 MINUTES OFFICE 51033 SONIDO HICKS JR OUTPATIEN [address] MINUTES P OFFICE 33692 VARUN FROST OUTPATIEN 5 5 [facility] ROACH TK T VISIT 15 MINUTES OFFICE 26670 VARUN FROST OUTPATIEN 5 5 [facility] ROACH KT T VISIT 15 MINUTES HOSPITAL SONIDO - 5 5 [facility] OUTPATIEN INC [facility]OSPITAL SONIDO - 5 5 [facility] OUTPATIEN INC T OFFICE 61484 [facility] MARCY OUTPATIEN 5 5 PHYSICIAN EUG T VISIT S GROUP 15 MINUTES OFFICE 43750 [facility] IVAN OUTPATIEN 5 5 PHYSICIAN MACARIO T VISIT S GROUP 15 MINUTES OFFICE 66447 BA BA OUTPATIEN 5 5 WILLY WILLY T NEW 30 MINUTES HOSPITAL SONIDO - 5 5 [facility] OUTPATIEN INC T OFFICE 84573 [facility] FRYMAN OUTPATIEN 5 5 PHYSICIAN EUG T VISIT S GROUP 15 MINUTES OFFICE 87060 [facility] IVAN OUTPATIEN 5 5 PHYSICIAN MACARIO T VISIT S GROUP 15 MINUTES OFFICE 02610 [facility] PETTEY OUTPATIEN 5 5 PHYSICIAN JAM T VISIT S GROUP 15 MINUTES EMERGENCY 36985 [facility] 5 5 HARIS PAT DEPARTMEN EMERGENCY T VISIT PHYS HIGH/URGE NT SEVERITY OFFICE 13895 [facility] IVAN OUTPATIEN 5 5 PHYSICIAN MACARIO T VISIT S GROUP 15 MINUTES HOSPITAL SONIDO - 5 5 [facility] OUTPATIEN INC T EMERGENCY 40139 [facility] LILY DEPT 5 5 HARIS VISIT EMERGENCY HIGH PHYS SEVERITY& THREAT FUNCJ OFFICE 60658 [facility] IVAN OUTPATIEN 4 4 PHYSICIAN MACARIO T VISIT S GROUP 15 MINUTES EMERGENCY 42504 [facility] DEPT 4 4 HARIS VISIT EMERGENCY HIGH PHYS SEVERITY& THREAT FUNJ EMERGENCY 19691 [facility] DE[facility] 4 4 HARIS [facility] VISIT EMERGENCY HIGH PHYS SEVERITY& THREAT FUNCJ OFFICE 74349 [facility] OUTPATIEN 4 4 PARVEZ PARVEZ T VISIT 15 MINUTES OFFICE 35018 [facility] OUTPATIEN 4 4 PHYSICIAN T VISIT S GROUP 15 MINUTES OFFICE 90922 [facility] OUTPATIEN 4 4 PHYSICIAN T NEW 20 S GROUP MINUTES OFFICE 19981 HARPEL HARPEL OUTPATIEN 4 4 KT KT T VISIT 15 MINUTES OFFICE 46725 IVAN IVAN OUTPATIEN 4 4 MACARIO MACARIO T VISIT 15 MINUTES OFFICE 63436 IVAN DICKENS OUTPATIEN 4 4 MACARIO MACARIO T VISIT 10 MINUTES [facility] SONIDO - 4 4 [facility] OUTPATIEN INC T Emergency ROBERT Dickens MD (ER) 4 21:50 4 00:49 [facility] EMERGENCY 59413 IVAN DICKENS 4 4 MACARIO MACARIO DEPARTMEN T VISIT HIGH/URGE NT SEVERITY OFFICE [address] [address] WO[facility] TRA OUTPATIEN 4 4 T VISIT 15 MINUTES OFFICE 14968 GREGG ESCOBEDO MERCEDES OUTPATIEN 3 3 T VISIT 25 MINUTES OFFICE [address] WOOTEN TRA OUTPATIEN 3 3 T VISIT 15 MINUTES EMERGENCY 77078 CELLAROSI CELLAROSI 3 3 - YORBA - YORBA DEPARTMEN PAT PAT T VISIT HIGH/URGE NT SEVERITY OFFICE 39181 FIELD AMB FIELD AMB OUTPATIEN 3 3 T VISIT 15 MINUTES Emergency ROBERT Dickens MD (ER) 3 20:23 3 21:19 [facility] EMERGENCY 80554 IVAN IVAN 3 3 MACARIO MACARIO DEPARTMEN T VISIT HIGH/URGE NT SEVERITY OFFICE 28944 KILPELA KILPELA OUTPATIEN 3 3 JEA JEA T VISIT 25 MINUTES OFFICE 60872 SHELLIE LIANA SHELLIE LIANA OUTPATIEN 3 3 T NEW 30 MINUTES OFFICE 82188 HARPEL HARPEL OUTPATIEN 3 3 KT KT T VISIT 15 MINUTES OFFICE 90858 LISET HUTCHINS OUTPATIEN 3 3 FAUZIA FAUZIA T VISIT 15 MINUTES PERIODIC 54144 HARPEL HARPEL PREVENTIV 3 3 KT KT E MED EST PATIENT 1839 YRS [facility]PITAL UNIVERSIT - 3 3 Y [facility] T Inpatient IMP (IN) 3 14:37 3 11:20 OFFICE 51816 MYNOR LISAPATIEN 3 3 LUZ LUZ T VISIT 15 MINUTES OFFICE 68645 HARPEL HARPEL OUTPATIEN 3 3 KT KT T VISIT 15 MINUTES Emergency ROBERT Baeza MD (ER) 3 10:08 3 14:34 [facility] EMERGENCY 63459 PETE NGUYEN DEPT 3 3 EMERGENCY VISIT SERVICES HIGH SEVERITY& THREAT FUNCJ OFFICE 85321 MYNOR SHANE 3 3 LUZ LUZ T VISIT 15 MINUTES Emergency ROBERT Dickens MD (ER) 3 20:28 3 23:23 [facility] - 3 3 [facility] OUTPATIEN INC T EMERGENCY 79088 [facility] 3 3 [facility] DEPARTMEN [facility] T VISIT HIGH/URGE NT SEVERITY EMERGENCY 56651 IVAN DICKENS DEPT 3 3 MACARIO MACARIO VISIT HIGH SEVERITY& THREAT FUNCJ OFFICE 38706 MYNOR SHANE 3 3 LUZ LUZ T VISIT 15 MINUTES OFFICE 55838 HARPEL HARPEL OUTPATIEN 3 3 KT KT T VISIT 15 MINUTES OFFICE 76502 HARPEL HARPEL OUTPATIEN 3 3 KT KT T VISIT 15 MINUTES Emergency ROBERT CESAR (ER) 3 14:55 3 16:30 [facility] EMERGENCY 08662 [facility] 3 3 [facility] DEPARTMEN [facility] T VISIT MODERATE SEVERITY EMERGENCY 37451 TALI CESAR DEPT 3 3 III KARO III KARO VISIT HIGH SEVERITY& THREAT [facility] T EMERGENCY 78379 PETE NGUYEN 3 3 EMERGENCY DEPARTMEN SERVICES T VISIT HIGH/URGE NT SEVERITY OFFICE 26480 LISET HUTCHINS OUTPATIEN 3 3 FAUZIA FAUZIA T VISIT 15 MINUTES [facility] - 3 3 [facility] T OFFICE 48425 MYNOR LOWE OUTPATIEN 2 2 LUZ LUZ T VISIT 15 MINUTES OFFICE 21786 HARPEL HARPEL OUTPATIEN 2 2 KT KT T VISIT 15 MINUTES [facility] S[facility] - 2 2 [facility] OUTPATIEN [facility] OFFICE 43854 MYNOR LOWE OUTPATIEN 2 2 LUZ LUZ T VISIT 15 MINUTES [facility] - 2 2 [facility] T EMERGENCY 59465 IVAN DICKENS 2 2 MACARIO MACARIO DEPARTMEN T VISIT HIGH/URGE NT SEVERITY [facility]OSP[facility] - 2 2 [facility] OUTPATIEN [facility] S[facility] - 2 2 [facility] - 2 2 [facility] OUTPATIEN [facility] T OFFICE 89246 HARPEL HARPEL OUTPATIEN 2 2 KT KT T VISIT 15 MINUTES INITIAL 61063 HARPEL HARPEL PREVENTIV 2 2 KT KT E MEDICINE NEW PT AGE 18-39YRS OFFICE 21910 GREGG LONG OUTPATIEN 2 2 T NEW 45 MINUTES OFFICE 76222 MYNOR LOWE OUTPATIEN 2 2 LUZ LUZ T VISIT 15 MINUTES EMERGENCY 23673 TALI CESAR DEPT 2 2 III KARO III KARO VISIT HIGH SEVERITY& THREAT FUNC EMERGENCY 93709 [facility] 2 2 [facility] DEPARTMEN [facility] T VISIT HIGH/URGE NT SEVERITY [facility]OSPITAL [facility] - 2 2 [facility] OUTPATIEN [facility] EMERGENCY 60507 [facility] 2 2 [facility] T VISIT MODERATE [facility]VERITY [facility] - 2 2 [facility] OUTPATIEN [facility] EMERGENCY 97097 PETE MYERS DEPT 2 2 EMERGENCY KARO VISIT SERVICES HIGH SEVERITY& THREAT [facility] - 2 2 [facility] OUTPATIEN [facility] EMER[facility]ENC[facility] 90335 [facility] T VISIT HIGH/URGE NT SEVERITY OFFICE 03142 HIEU MOLINA OUTPATIEN 2 2 T VISIT 40 MINUTES OFFICE 92008 MYNOR LISAPATIEN 2 2 LUZ LUZ T VISIT 15 MINUTES [facility]OSPITAL [facility] - 2 2 [facility] OUTPATIEN [facility] 2 2 [facility]7211 MYNOR LISAPATIEN 2 2 LUZ LUZ T VISIT 15 MINUTES OFFICE 13700 MYNOR RIZVIEN 2 2 LUZ LUZ T VISIT 15 MINUTES OFFICE [address] [facility] TRA OUTPATIEN 2 2 T VISIT 15 MINUTES OFFICE 95455 MYNOR RIZVIEN 2 2 LUZ LUZ T VISIT 15 MINUTES OFFICE [address] [facility] OUTPATIEN 2 2 T VISIT 15 MINUTES OFFICE 49827 MARY JANE [facility] OUT[facility] 2 2 ELIZABETH ELIZABETH T VISIT 25 MINUTES EMERGENCY 84126 REESE PING REESE PING DEPT 1 1 VISIT HIGH SEVERITY& THREAT FUNCJ EMERGENCY 14710 [facility] 1 1 [facility] T VISIT MODERATE SEVERITY [facility] - [facility] T EMERGENCY 58566 PETE REESE PING DEPT 1 1 EMERGENCY VISIT SERVICES HIGH SEVERITY& THREAT FUN [facility]OSP[facility] - [facility] 1 [facility] T EMERGENCY 76362 [facility] 1 1 [facility]PART[facility] T VISIT MODERATE SEVERITY OFFICE 07294 [facility] [place] [place] 1 [place] [facility]ED [facility]ES OFFICE 76223 [facility] [place] 1 1 [place] V[facility]THOPAED [facility] MINUT[facility] OFFICE 79594 MYNOR LOWE OUTPATIEN 1 1 LUZ LUZ T VISIT 15 MINUTES OFFICE 74380 MYNRO LOWE OUTPATIEN 1 1 LUZ LUZ T VISIT 15 MINUTES HOSPITAL [facility] - 1 1 [facility] OUTPATIEN INC T EMERGENCY 37979 [facility] 1 1 [facility] DEPARTMEN INC T VISIT MODERATE SEVERITY EMERGENCY 30100 PETE DICKENS 1 1 EMERGENCY [facility] DEPARTMEN SERVICES T VISIT HIGH/URGE NT SEVERITY EMERGENCY 03673 S[facility] 1 1 [facility] DEPARTMEN INC T VISIT MODERATE SEVERITY EMERGENCY 82666 [facility]GE [facility] SEVERITY [facility] - 1 1 [facility] OUTPATIEN INC T OFFICE 13143 [facility] T VISIT CLINIC OF 25 APRYL MINUTES EMERGENCY 29531 [facility] 1 1 [facility]PART[facility] INC T VISIT MODERATE SEVERITY [facility]OSP[facility] - 1 1 [facility] INC T EMERGENCY 92744 [facility] C[facility]AR [facility] H[facility]/URGE NT SEVERITY OFFICE 17241 [place] LEOINEN[place] OUTPATIEN 1 1 MEDICAL [facility] T VISIT SERV 25 FOUNDATIO MINUTES EMERGENCY 88588 GARIMA COTTON 1 1 MEDICAL [facility] DEPARTMEN SERV T VISIT FOUNDATIO HIGH/URGE NT SEVERITY HOSPITAL [facility] - 1 1 [facility] OUTPAT[facility]EN INC T EMERGENCY 46424 [facility] LOW/MODER SEVERITY EMERGENCY 68168 PETE DICKENS 1 1 EMERGENCY [facility] DEPARTMEN SERVICES T VISIT HIGH/URGE NT SEVERITY HOSPITAL [facility] - 1 1 [facility] OUTPATIEN [facility] T EMERGENCY 50999 [facility] 1 [facility] HIGH/URGE NT SEVERITY EMERGENCY 30643 PETE NAVARRO DEPT 1 1 EMERGENCY VISIT SERVICES HIGH SEVERITY& THREAT FUNCJ EMERGENCY 65503 [facility] HIGH/URGE NT SEVERITY [facility] - 1 1 [facility] OUTPATIEN INC T OFFICE 23215 [place] GEOVANY PHI OUTPATIEN 1 1 MEDICAL T NEW 30 SERV MINUTES [facility] UN[facility]ERS[facility] 1 1 [facility]ER[facility] 26856 PETE DICKENS 1 1 EMERGENCY [facility] DEPARTMEN SERVICES T VISIT HIGH/URGE NT SEVERITY EMERGENCY 38762 [facility] 1 1 [facility] DEPARTMEN INC T VISIT MODERATE SEVERITY HOSPITAL [facility] - 1 1 [facility]PAT[facility] INC T EMERGENCY 47312 PETE MARCANO 1 1 EMERGENCY DEV DEPARTMEN SERVICES T VISIT HIGH/URGE NT SEVERITY OFFICE 55531 [facility] PETTEY OUTPATIEN 1 1 PHYSICIAN CHASTITY T VISIT S GROUP 15 MINUTES HOSPITAL [facility] - 1 1 [facility] INC T OFFICE 60353 [facility] PETTEY CONSULTAT 1 1 PHYSICIAN CHASTITY ION S GROUP NEW/ESTAB PATIENT 60 MIN EMERGENCY 03722 PETE FENG DEPT 1 1 EMERGENCY VISIT SERVICES HIGH SEVERITY& THREAT FUN HOSPITAL [facility] - 1 1 [facility] OUTPATIEN INC T HOSPITAL S[facility] - 1 1 [facility] OUTPATIEN INC T EMERGENCY 64988 [facility] 1 1 [facility] DEPARTMEN INC T VISIT MODERATE SEVERITY [facility]OSPITAL [facility] - 1 1 [facility] OUTPATIEN INC T EMERGENCY 59744 PETE FENG DEPT 1 1 EMERGENCY VISIT SERVICES HIGH SEVERITY& THREAT [facility] OFF[facility] 30097 [facility] 1 1 [facility] T VISIT CLINIC OF 25 APRYL MINUTES OFFICE 62930 MYNOR LOWE OUTPATIEN 1 1 LUZ LUZ T VISIT 15 MINUTES PERIODIC 62595 [facility] PREVENTIV 1 1 [facility] E MED EST CLINIC OF PATIENT APRYL 18-39 YRS OFFICE 88967 MYNOR LOWE OUTPATIEN 0 0 LUZ LUZ T VISIT 15 MINUTES EMERGENCY 55124 [facility] 0 0 [facility] DEPARTMEN INC T VISIT LIMITED/M INOR PROB HOSPITAL [facility] - 0 0 [facility] OUTPATIEN INC T EMERGENCY 10853 PETE DICKENS 0 0 EMERGENCY [facility] DEPARTMEN SERVICES T VISIT HIGH/URGE NT SEVERITY OFFICE 37607 MYNOR LOWE OUTPATIEN 0 0 LUZ LUZ T VISIT 15 MINUTES OFFICE 73345 [facility], CONSULTAT 0 0 [place] MING A ION ORTHOPAED NEW/ESTAB [facility] PATIENT 60 MIN OFFICE 74828 MYNOR LOWE OUTPATIEN 0 0 TITO Ramon T VISIT 15 MINUTES OFFICE 79186 MYNOR LOWE OUTPATIEN 0 0 TITO FRANCIS W T VISIT 15 MINUTES HOSPITAL [facility] - 0 0 [facility] OUTPATIEN INC T EMERGENCY 56360 [facility] 0 0 [facility] DEPARTMEN INC T VISIT MODERATE SEVERITY [facility]OSPITAL [facility] - 0 0 [facility]EN [facility] T EMERGENCY 50741 [facility] 0 0 [facility] DEPARTMEN INC T VISIT LIMITED/M INOR PROB EMERGENCY 28712 PETE DICKENS, [address] [facility] SERVICES T VISIT HIGH/URGE ASSOCIATE NT S SEVERITY EMERGENCY 90428 [facility] 0 0 [facility] DEPARTMEN INC T VISIT LIMITED/M INOR PROB HOSPITAL [facility] - 0 0 [facility] T EMERGENCY 26418 PETE DICKENS, [address] [facility] SERVICES T VISIT HIGH/URGE ASSOCIATE NT S SEVERITY OFFICE 16893 A[facility] CANTU 0 0 S TOO R T VISIT SERVICES 15 PSC MINUTES [facility]OSPITAL [facility] - 0 0 [facility] T [facility] - 0 0 [facility] INC T OFFICE 61557 PHYSICIAN ACOSTA COURTNEY 9 9 S TOO R T VISIT SERVICES 15 PSC MINUTES OFFICE 71327 MYNOR LOWE OUTPATIEN 9 9 TITO Ramon T VISIT 15 MINUTES OFFICE 00362 MYNOR LOWE OUTPATIEN 9 9 TITO Ramon T VISIT 15 MINUTES OFFICE 39012 PHYSICIAN ACOSTA WEBSTER 9 9 Gilbert Ramon T NEW 30 SERVICES MINUTES PSC OFFICE 87183 ACOSTA WADE 9 9 MEDICAL ADDISON [place] T VISIT SERV 10 FOUNDATIO MINUTES HOSPITAL UNIVERSIT - 9 9 Y OUTPATIEN HOSPITAL T OFFICE 06422 MYNOR LOWE OUTPATIEN 9 9 TITO Yenny Ramon T VISIT 15 MINUTES OFFICE 26033 MELLY HUNTLEY 9 9 MEDICAL DEANNA G ION SERV NEW/ESTAB FOUNDATIO PATIENT 40 MIN OFFICE 29776 [facility] Juan T VISIT CLINIC OF 15 MINUTES [facility] SONIDO - 9 9 [facility] OUTPATIEN INC T OFFICE 79556 ACOSTA AQUINO 9 9 AND MAURICIO CARMINE Marjan T VISIT SURGEONS 15 PSC MINUTES OFFICE 67588 MYNOR LOWE OUTPATIEN 9 9 TITO Ramon TITO Ramon T VISIT 15 MINUTES OFFICE 60016 MYNOR LOWE OUTPATIEN 9 9 TITO Ramon T VISIT 15 MINUTES HOSPITAL [facility] - 9 9 [facility] OUTPATIEN INC T OFFICE 56334 JASON GARCÍAAT 9 9 SANTOSH GARRETT NEW/ESTAB PATIENT 80 MIN OFFICE 85853 MYNOR LOWE OUTPATIEN 9 9 TITO Ramon TITO Ramon T NEW 30 MINUTES OFFICE 02357 COREAS COREAS OUTPATIEN 9 9 Yessica FLOWERS JR, Yessica Dey T VISIT 15 MINUTES OFFICE 11506 [facility]EN 9 9 HEALTH VLAD J T VISIT CLINIC OF [address] [facility] OFFICE 14347 [facility] OUTPAT[facility] 9 9 HEALTH VLAD J T VISIT CLINIC OF 15 MINUTES [facility] SONIDO - 9 9 [facility] OUTPATIEN [facility] SONIDO - 9 9 [facility] OUTPATIEN INC T OFFICE 98605 [facility], OUTPAT[facility] 9 9 HEALTH VLAD J T VISIT CLINIC OF 15 MINUTES [facility] OFFICE 30704 [facility], CONSULTAT 9 9 HEALTH VLAD J ION CLINIC OF NEW/ESTAB PATIENT APRYLTHIANA [address] [facility] EMERGENCY 10131 PETE MATHUR 9 9 EMERGENCY [facility] T VISIT HIGH/URGE ASSOCIATE NT S SEVERITY [facility]OSPITAL [facility] - 9 9 [facility] T OFFICE 91067 [facility], OUTPATI[facility] 9 9 HEALTH VLAD J T VISIT CLINIC OF 10 MINUTES [facility] SONIDO - 9 9 [facility] OUTPATI[facility] INC T PERIODIC 01226 [facility], PREVENTIV 9 9 HEALTH VLAD J E MED EST CLINIC OF PATIENT 18-39 [facility] 02756 [facility] OUTPATIEN 9 9 HEALTH VLAD J T V[facility] 15 [facility] 70720 STEPH MATHUR 9 9 [facility] T VISIT ON MODERATE SEVERITY [facility]OSPITAL [facility] - 9 9 [facility] OUTPATIEN INC T EMERGENCY 69182 [facility] 9 9 [facility] T VISIT LOW/MODER SEVERITY OFFICE 20020 [facility] OUTPATIEN 9 9 HEALTH VLAD J T VISIT CLINIC OF [address] [facility] OFFICE 86378 [facility], OUTPATIEN 9 9 HEALTH VLAD J T VISIT CLINIC OF [address] OFFICE 65476 [facility], OUTPATIEN 8 8 HEALTH VLAD J T VISIT CLINIC OF [address] [facility] OFF[facility] 47065 JOSS WEINSTEINILLO OUTPATIEN 8 8 Yessica FLOWERS JR, J V T VISIT 15 MINUTES OFFICE 31083 COREAS COREAS OUTPATIEN 8 8 Yessica FLOWERS JR, J V T VISIT 15 MINUTES EMERGENCY 32672 [facility] 8 8 [facility] DEPARTMEN INC T VISIT HIGH/URGE NT SEVERITY [facility]OSPITAL [facility] - 8 8 [facility] OUTPATIEN INC T OFFICE 72753 [facility], [facility] 8 8 HEALTH VLAD J T VISIT CLINIC OF 15 MINUTES [facility] OFFICE 04180 COREASDELIA WEINSTEINILLO OUTPATIEN 8 8 Yessica FLOWERS JR, J V T VISIT 15 MINUTES HOSPITAL [facility] - 8 8 [facility] OUTPATIEN INC T OFFICE 05495 JOSS WEINSTEINILLO OUTPATIEN 8 8 Yessica FLOWERS JR, J V T VISIT 15 MINUTES OFFICE 89484 [facility]EN 8 8 HE[facility] VLAD J T VISIT CLINIC OF [address] [facility] 83676 [facility], [facility] 8 8 HEALTH VLAD J T V[facility]IT [facility] 15 [facility]ES [facility] EMERGENCY 54696 STEPH NAVARRO, 8 8 [facility] DEPARTMEN CORPORATI T VISIT ON MODERATE SEVERITY EMERGENCY 05625 [facility] 8 8 [facility] DEPARTMEN INC T VISIT LOW/MODER SEVERITY [facility]OSPITAL [facility] - [address] [facility] T EMERGENCY 90659 [facility] 8 8 [facility] T VISIT LIMITED/M INOR PROB EMERGENCY 91181 SON[facility]O PRIYANKA, 8 8 [facility] T VISIT PROF SERV LOW/MODER SEVERITY HOSPITAL SONIDO - 8 8 [facility] HOSPITAL UNIVERSIT - 8 8 Y [facility] T OFFICE 26285 [place] MELLY MUNIZ 8 8 MEDICAL ADDISON Gamaliel ION SERV NEW/ESTAB FOUNDATIO PATIENT 40 MIN OFFICE 62276 [place] ACOSTA YOUSSEF 8 8 AND HAND CARMINE A T VISIT SURGEONS 10 PSC MINUTES OFFICE 88291 [place] ACOSTA YOUSSEF 8 8 AND HAND CARMINE A T NEW 30 SURGEONS MINUTES PSC OFFICE 85362 CHLOE CORONA OUTPATIEN 8 8 BOBBY BOBBY T VISIT 15 MINUTES OFFICE 24505 DEIRDRE GILMORE OUTPATIEN 8 8 ALAN A ALAN A T VISIT 10 MINUTES [facility]PITAL [facility] - [address] [facility] T OFFICE 24954 CHLOE CORONA OUTPATIEN 8 8 BOBBY BOBBY T VISIT 25 MINUTES OFFICE 60964 CHLOE CORONA OUTPATIEN 8 8 BOBBY BOBBY T VISIT 15 MINUTES OFFICE 70944 ACOSTA MONROY 8 8 CHLOE PSC BOBBY T NEW 45 MINUTES EMERGENCY 56465 [facility] 8 8 N [facility] T VISIT HOSPITAL HIGH/URGE NT SEVERITY OFFICE 06835 KAPIL DICK OUTPATIEN 8 8 DON R DON R T VISIT 15 MINUTES HOSPITAL GEORGESANDRAW - 8 8 N OUTPATIEN [facility] OFFICE 98462 KAPIL DICK OUTPATIEN 8 8 DON R DON R T VISIT 15 MINUTES HOSPITAL [facility]O - 8 8 [facility] T OFFICE 17671 KAPIL DICK OUTPATIEN 8 8 DON R DON R T VISIT 15 MINUTES OFFICE 16875 STEVEN HARRIS CONSULTAT 8 8 , MICHELLE MARTINEZ ION NEW/ESTAB PATIENT 15 MIN OFFICE 76294 KAPIL DICK OUTPATIEN 8 8 DON R DON R T VISIT 15 MINUTES EMERGENCY 81682 SONIDO NAVARRO, 8 8 [facility] T VISIT PROF SERV MODERATE SEVERITY EMERGENCY 43197 S[facility]O 8 8 [facility] T VISIT HIGH/URGE NT SEVERITY HOSPITAL SONIDO - 8 8 [facility] OUTPATIEN [facility] OFFICE 13671 [facility] 8 8 HEALTH VLAD J T VISIT CLINIC OF 15 MINUTES [facility] OFFICE 23533 [facility] OUTPAT[facility]EN 8 8 HEALTH VLAD J T [facility]ISIT CLINIC OF 15 MINUTES [facility] SON[facility]O - 8 8 [facility] OUTPATIEN [facility] EMERGENCY 21064 [facility] 8 8 [facility] T VISIT HIGH/URGE NT SEVERITY OFFICE 22826 [facility] OUTDAMON 8 8 HEALTH VLAD J T VISIT CLINIC OF 15 MINUTES [facility] SONIDO - 8 8 [facility] OUTPATIEN [facility] OFFICE 35798 [facility] OUTPATI[facility] 8 8 HEALTH VLAD J T [facility]ISIT CLINIC OF [address] [facility] OFF[facility] 13880 [facility] 8 8 [facility]AD Kilpatrick VISIT CLINIC OF 15 MINUT[facility]
--- OUTSIDE RECORDS SUMMARY | 2017-06-05 22:41 | External Medical Summary Rpt | CCD ---
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 5 EA [...] 11 11 RI TA 8 PH CH DE AR AR N- MA D CA CY W FF OF 50 -3 CY 25 NT -4 HI 0 AN A NA 00 01 01 1 60 30 EA 20 CL Ac MI 09 -2 -[address] 97 AR [...] 11 11 RI TA 8 PH CH DE AR AR N- MA D CA CY [...] W OF CY NT HI AN A MI 00 09 09 1 30 7 EA [...] 12 02 01 12 30 EA 15 DE Ac AM 16 -3 -[address] 78 CK ti AD 20 0- 1- 00 SI 01 ve OL 62 20 20 0 DE GR 71 09 10 EG HC 1 PH OR L AR Y 50 MA E CY MG OF TA CY BL NT ET HI AN A TR 65 12 01 00 12 30 EA 15 DE Ac AM 16 -3 -[address] [...] 20 DE ZA 80 09 09 RI MI 1 PH CH IN AR AR E [...] 20 DE LO ZA 80 09 09 MI 1 PH JR IN AR J E [...] 15 0 MG CA PS UL E MI 00 04 04 00 30 30 CL [...] 1 AR RE MA K CY J MI 00 02 02 00 30 30 CL [...] 1 AR RE MA K CY J MI 00 11 11 00 30 30 CL [...] CY OF CY NT HI AN A MI 00 09 10 00 30 30 CL [...] la 1 AR bl MA e CY MI 00 07 08 00 12 2 CL [...] DE ai ZA 11 08 08 la MI 1 PH bl IN AR e E [...] 00 60 30 EA 98 No Ac MI 74 -2 -[address] 14 t [...] 00 12 6 EA 97 No Ac MI 74 -1 -[address] 26 t [...] 00 10 5 EA 96 No Ac DE 00 -2 -[address] 95 t [...] 00 20 10 EA 96 No Ac MI 17 -0 -[address] 27 t [...] Procedure DOS Code Location Performer Comment THERAPEUT 10748 [facility] PROPHYLAC INC INC TIC/DX INJECTION SUBQ/IM THER 26700 [facility] PROPH/DX 7 [facility] NJX IV INC INC PUSH SINGLE/1S T SBST/DRUG URNLS DIP 86438 [facility] STICK/TAB INC [place] [address] [facility] ABDOMEN & 7 [facility] PELVIS INC INC W/O CONTRAST MATERIAL CULTURE 17734 [facility] BACTERIAL 7 [facility] INC INC QUANTTATI VE COLONY COUNT URINE COMPREHEN 33920 [facility] SIVE 7 [facility] [place] [address] [facility] LIPASE 7 [facility] INC INC FINAL G9551 [place] REPR ABD 7 MEDICAL IMAG STS IMAGING W/O ASS INCIDNT FND LES NTD: THERAPEUT 59493 [facility] IC 7 [facility] INJECTION INC INC IV PUSH EACH NEW DRUG BLOOD 18399 [facility] COUNT 7 [facility] COMPLETE INC INC AUTO&AUTO DIFRNTL WBC FINAL G9638 [place] [facility] REPORTS 7 MEDICAL W/O DOC IMAGING 1/MORE ASS DOSE REDUCTION TECH THERAPEUT 48783 [facility] INJECTION [place] [address] [facility] INFUSION 7 [facility] THERAPY/P INC INC ROPHYLAXI S /DX 1ST TO 1 HR MRI ANY 37912 KATIE FERNANDEZ JT UPPER 7 EXTREMITY ORTHOPAED W/O ICS PSC CONTRAST MATRL RADEX 44821 KATIE FERNANDEZ SHOULDER 7 COMPLETE ORTHOPAED MINIMUM 2 ICS PSC VIEWS INJECTION J2550 [facility] IVAN 7 PHYSICIAN PROMETHAZ GROUP INE HCL UP TO 50 MG THERAPEUT 03852 [facility] IVAN IC 7 PHYSICIAN PROPHYLAC GROUP TIC/DX INJECTION SUBQ/IM INJECTION J1885 [facility] IVAN 7 PHYSICIAN KETOROLAC GROUP TROMETHAM INE PER 15 MG OPHTH 69633 [facility] 6 XM&EVAL COMPRHNSV ESTAB PT 1/> INJECTION J2405 [facility] 6 [facility] H[facility] PER 1 MG INJECTION J2250 [facility] 6 Y Y MIDAZOLAM [facility] HCL [place] 1 [place] [address] [facility] SURG 6 Y Y PATHOLOGY [facility] GROSS&MACARIO ROSCOPIC EXAM INJECTION J1100 [facility] 6 Y Y DEXAMETHO [facility] SONE SODIUM PHOSPHATE 1 MG INJECTION J2704 [facility] PROPOFOL 6 Y Y 10 MG [facility] SPECIAL 75910 [facility] [address] MICROORGA NISMS I&R COLSC FLX [address]207 GARIMA MORALES W/RMVL 6 MEDICAL LEMUEL OF TUMOR SERV POLYP FOUNDATIO LESION N SNARE TQ ANES 66693 [facility] [place] [facility] 6 LTH [place] INTESTINE ANESTHESI A PSC ENDOSCOPY DISTAL DUODENUM COMPREHEN 06566 [facility] SIVE 6 Y Y METABOLIC [facility] PANEL IMMUNOASS 94711 [facility] AY 6 Y Y ANALYTE [facility] QUAL/[place] M[place] [address] [facility] LIPASE 6 Y Y HOSPITAL [facility]PITAL ANTIBODY 52313 [facility] HELMINTH 6 Y Y NOT [facility] [place] [address] [facility] GAMMAGLOB 6 Y Y ULIN IGA [facility] IGD IGG IGM EACH BLOOD 39005 [facility] COUNT 6 Y Y COMPLETE [facility] AUTO&AUTO DIFRNTL WBC COLLECTIO 57350 [facility] N VENOUS 6 Y Y [facility] VENIPUNCT URE IADNA 40231 [facility] NEISSERIA 6 PHYSICIAN PHYSICIAN S GROUP S GROUP GONORRHOE AE DIRECT PROBE TQ CULTURE 42554 [facility] HARPEL CHLAMYDIA 6 PHYSICIAN KT ANY S GROUP SOURCE URINLS 43401 [facility] HARPEL DIP 6 PHYSICIAN KT STICK/TAB S GROUP LET REAGNT NON-AUTO MICRSCPY THER 79839 [facility] PROPH/DX 6 [facility] NJX IV INC INC PUSH SINGLE/1S T SBST/DRUG RHYTHM 38685 [facility] ECG 1-3 6 [facility] LEADS INC INC TRACING ONLY W/O I&R THERAPEUT 08196 S[facility] IC 6 [facility] INJECTION INC INC IV PUSH EACH NEW DRUG RADIOLOGI 61938 [place] [facility] [facility] EXAM 6 [facility] CHEST 2 IMAGING VIEWS ASS FRONTAL&L ATERAL ECG 59485 [facility] ARORA ROUTINE 6 [facility] W/LEAST P 12 LDS I&[place] [address] [facility] LIPASE 6 [facility] INC INC URNLS DIP 56407 [facility] STICK/TAB INC INC LET REAGENT AUTO MICROSCOP Y FIBRIN 16626 [facility] DGRADJ 6 [facility] PRODUCTS INC INC D-DIMER QUAL/SEMI PARAS SUSCEPTIB 84442 [facility] ILITY 6 [facility] STUDY INC INC ANTIMICRO BIAL DISK METHOD BLOOD 41079 [facility] COUNT 6 [facility] COMPLETE INC INC AUTO&[place] [address] [facility] TROPONIN 6 [facility] QUANTITAT INC INC JACK ECG 07499 [facility]IDOPANKAJ HEAD ROUTINE 6 [facility] ECG INC INC W/LEAST 12 LDS TRCG ONLY W/O I&[place] [address] [place] ABDOMEN & 6 [facility] PELVIS IMAGING W/O ASS CONTRAST MATERIAL COMPREHEN 57801 [facility] SIVE 6 [facility] METABOLIC INC INC PANEL CULTURE 97692 [facility] SONIDO BACTERIAL 6 [facility] INC INC QUANTTATI VE COLONY COUNT URINE CULTURE 64889 [facility] SONIDO BCT 6 [facility] ISOL&PRSM INC INC PTV ID ISOLATE EA URINE INJECTION J1885 [facility] IVAN 6 PHYSICIAN MACARIO KETOROLAC S GROUP TROMETHAM INE PER 15 MG THERAPEUT 98365 [facility] IVAN IC 6 PHYSICIAN [place] PROPHYLAC S GROUP TIC/DX INJECTION SUBQ/IM INJECTION J2550 [facility] IVAN 6 PHYSICIAN [facility] PROMETHAZ S GROUP INE HCL UP TO 50 MG INJECTION J2550 [facility] JOSE GUADALUPE 6 PHYSICIAN PROMETHAZ GROUP INE HCL UP TO 50 MG IAADIADOO 91972 [facility] JOSE GUADALUPE 6 PHYSICIAN INFLUENZA GROUP THERAPEUT 15543 [facility] PROPHYLAC GROUP TIC/DX INJECTION SUBQ/IM DRUG TST G0483 PHYSICIAN PHYSICIAN DEFINITV [address] ID CENTER CENTER METH P DAY 22/MORE DR EPPS SPECTROPH 07964 PHYSICIAN PHYSICIAN OTOMETRY 6 S MEDICAL [facility] A[facility] CENTER NOT ELSEWHERE SPECIFIED PH BODY 62672 PHYSICIAN PHYSICIAN FLUID NOT 6 S [facility] ELSEWHERE SPECIFIED CREATININ 81796 PHYSICIAN PHYSICIAN E OTHER 6 [facility] ANES 29702 [place] TRANSURET 6 ANESTHESI DHALIWAL HRAL A GROUP W/URETHRO PS CYSTOSCOP Y NOS ECG 85860 [facility] ROUTINE 6 [facility] ECG INC INC W/LEAST 12 LDS TRCG ONLY W/O I&R CULTURE 88815 [facility] BACTERIAL 6 [facility] INC INC QUANTTATI VE COLONY COUNT URINE COMPREHEN 04366 [facility] SIVE 6 [facility] METABOLIC INC INC PANEL COLLECTIO 60132 [facility] [place] VENOUS 6 [facility] BLOOD INC INC VENIPUNCT URE URNLS DIP 54721 [facility] 6 [facility] STICK/TAB INC INC LET REAGENT AUTO MICROSCOP Y ECG 51933 [facility] ARORA ROUTINE 6 [facility] W/LEAST P 12 LDS I&R ONLY BLOOD 01823 [facility] COUNT 6 [facility] COMPLETE INC INC AUTO&AUTO DIFRNTL WBC NASOPHARY 75066 EAR, NOSE SHASHY NGOSCOPY 6 AND ABHIJIT W/ENDOSCO THROAT PE SPX SPECIAL ANES 65091 [facility] TRANSURET 6 ANESTHESI RICKEY HRAL A GROUP W/URETHRO PS CYSTOSCOP Y NOS ECG 63237 [facility] ROUTINE 6 [facility] ECG INC INC W/LEAST 12 LDS TRCG ONLY W/O I&R COMPREHEN 16253 [facility] CORTEZE 6 [facility] METABOLIC INC INC PANEL CULTURE 87301 [facility] BACTERIAL 6 [facility] INC INC QUANTTATI VE COLONY COUNT URINE COLLECTIO 16696 [facility] [place] VENOUS 6 [facility] BLOOD INC INC VENIPUNCT URE BLOOD 43076 [facility] COUNT 6 [facility] COMPLETE INC INC AUTO&AUTO DIFRNTL WBC ECG 60975 [facility] GEORGES JR ROUTINE 6 [facility] W/LEAST P 12 LDS I&R ONLY URNLS DIP 02759 [facility] HEAD 6 [facility] STICK/TAB INC INC LET REAGENT AUTO MICROSCOP Y URNLS DIP 70678 [facility] 6 [facility] STICK/TAB INC INC [place] [address] [facility] LIPASE 6 [facility] INC INC FIBRIN 75307 [facility] DGRADJ 6 [facility] PRODUCTS INC INC D-DIMER QUAL/SEMI PARAS THERAPEUT 14553 [facility] IC 6 [facility] INJECTION INC INC IV PUSH EACH NEW DRUG BLOOD 59191 [facility] COUNT 6 [facility] COMPLETE INC INC AUTO&[place] [address] S[facility] AMYLASE 6 [facility] INC INC COMPREHEN 33637 [facility] [place] SIVE 6 [facility] METABOLIC INC INC PANEL THER 57014 S[facility] PROPH/DX 6 [facility] NJX IV INC INC PUSH SINGLE/1S T SBST/[place] [address] SON[facility]O SONIDO ABDOMEN & 6 [facility] PELVIS INC INC W/O CONTRAST MATERIAL UNCLASSIF J3490 [facility] IED DRUGS 6 [facility] INC INC INJECTION J1885 [facility] THIEN TER 6 PHYSICIAN KETOROLAC S GROUP TROMETHAM INE PER 15 MG CYSTO 51443 [facility] CALIBRATI 6 [place] ON DILAT ADULT & URTL PED STRIX/LIANA NOSIS SHUKRI 42449 [facility] POST-VOID 6 [place] TH[facility] ING ADULT & RESIDUAL PED URINE&/BL ADDER CAP PH BODY 75628 PHYSICIAN PHYSICIAN FLUID NOT 6 S [facility] CENTER ELSEWHERE SPECIFIED CREATININ 12304 PHYSICIAN PHYSICIAN E OTHER 6 [facility] SPECTROPH 43799 PHYSICIAN PHYSICIAN OTOMETRY 6 S [facility] [place] [place] [address] [facility] ABDOMEN & 5 [facility] PELVIS IMAGING W/O ASS CONTRAST MATERIAL CULTURE 28225 [facility] BACTERIAL 5 DIAGNOSTI DIAGNOSTI CS CS QUANTTATI VE COLONY COUNT URINE URINLS 62470 A C SHELLIE LIANA DIP 5 [facility] STICK/TAB PSC LET REAGNT NON-AUTO MICRSCPY INJECTION J1885 [facility] THIEN TER 5 PHYSICIAN KETOROLAC S GROUP TROMETHAM INE PER 15 MG THERAPEUT 15351 [facility] THIEN ZIMMERMAN IC 5 PHYSICIAN PROPHYLAC S GROUP TIC/DX INJECTION SUBQ/IM THERAPEUT 89621 [facility] SHI IC 5 [facility] TIC/DX INJECTION SUBQ/IM INJECTION J18[address] [facility] TROMETHAM INE PER 15 MG INJECTION J2550 [facility] INE HCL UP TO 50 MG INJECTION J2550 [facility] VIDAL 5 [facility] INE HCL UP TO 50 MG INJECTION J1885 [facility] VIDAL 5 [facility] TROMETHAM INE PER 15 MG THERAPEUT 51031 [facility] VIDAL IC 5 [facility] TIC/DX INJECTION SUBQ/IM THERAPEUT 41498 [facility] SHI IC 5 [facility] TIC/DX INJECTION SUBQ/IM INJECTION J18[address] [facility] TROMETHAM INE PER 15 MG INJECTION J2550 [facility] SHI [facility] INE HCL UP TO 50 MG RADEX 46765 S[facility] FOOT 5 [facility] COMPLETE INC INC MINIMUM 3 VIEWS RADEX 90351 [place] ALL FOOT 5 MEDICAL COMPLETE IMAGING MINIMUM 3 [place] [address] [facility] PETTEY 5 PHYSICIAN JAM METATARSA S GROUP L FRACTURE W/O MANIPULAT ION SURGICAL L3260 [facility] BOOT/SHOE 5 TECHNOLOG TECHNOLOG EACH IES INC IES INC INJECTION J18[address] [facility] TROMETHAM INE PER 15 MG THERAPEUT 24129 [facility] SHI IC 5 [facility] TIC/DX INJECTION SUBQ/IM INJECTION J2550 [facility] SHI [facility] INE HCL UP TO 50 MG RADIOLOGI 60931 [place] EXAM 5 [facility] CHEST 2 IMAGING VIEWS ASS FRONTAL&L ATERAL CYSTOURET 47391 S[facility] HICKS JR HROSCOPY 5 [facility] P URNLS DIP 59840 S[facility] HICKS JR 5 [facility] LET RGNT P NON-AUTO W/O MICRSCP THERAPEUT 38648 S[facility]O VIDAL IC 5 [facility] TIC/DX INJECTION SUBQ/IM INJECTION J1885 [facility] VIDAL 5 [facility] TROMETH[place] INE PER 15 MG UROGRAPHY 35779 [facility] IV W/WO 5 [facility] KUB W/WO INC INC TOMOGRAPH Y LOCM Q9967 [facility] 300-399 5 [facility] MG/ML INC INC IODINE CONCENTRA TION PER ML INF AGT G0432 [facility] AB DETECT 5 [facility] EIA TECH INC INC HIV-1&/HI V-2 SCR HEPATITIS 12483 [facility] C 5 [facility] ANTIBODY INC INC COLLECTIO 02800 S[facility] N VENOUS 5 [facility] BLOOD INC INC VENIPUNCT URE THERAPEUT 87359 [facility] FRYMAN IC 5 PHYSICIAN EUG PROPHYLAC S GROUP TIC/DX INJECTION SUBQ/IM INJECTION J1885 [facility] FRYMAN 5 PHYSICIAN EUG KETOROLAC S GROUP TROMETHAM INE PER 15 MG INJECTION J1885 [facility] IVAN 5 PHYSICIAN MACARIO KETOROLAC S GROUP TROMETHAM INE PER 15 MG INJECTION J1200 [facility] DIPHENHYD S GROUP RAMINE HCL UP TO 50 MG THERAPEUT 29546 [facility] IC 5 PHYSICIAN MACARIO PROPHYLAC S GROUP TIC/DX INJECTION SUBQ/IM INJECTION J2550 [facility] 5 PHYSICIAN [facility] PROMETHAZ S GROUP INE HCL UP TO 50 MG COLLECTIO 31528 [facility] N VENOUS 5 [facility] BLOOD INC INC VENIPUNCT URE BLOOD 63893 [facility] COUNT 5 [facility] COMPLETE INC INC AUTO&AUTO DIFRNTL WBC IMMUNOASS 21017 [facility] AY NFCT 5 [facility] AGT ANTB INC INC QUAL/SEMI PARAS 1 STEP IAADIADOO 01908 [facility] IVAN 5 PHYSICIAN [place] [address] [facility] [place] [facility] CERVICAL 5 RADIOLOGY SPINE W/O CONTRAST MATERIAL RADEX 31886 S[facility] SHOULDER 5 [facility] COMPLETE INC INC MINIMUM 2 VIEWS RADEX 78602 S[facility] SPINE 5 [facility] CERVICAL INC INC [address] [place] [address] [facility] [place] RODRIGUE[place] ABDOMEN & 5 RADIOLOGY RAY PELVIS W/O CONTRAST MATERIAL INJECTION J1885 [facility] IVAN 4 PHYSICIAN MACARIO KETOROLAC S GROUP TROMETHAM INE PER 15 MG THERAPEUT 40857 [facility] IVAN IC 4 PHYSICIAN [place] PROPHYLAC S GROUP TIC/DX INJECTION SUBQ/IM INJECTION J2550 [facility] IVAN 4 PHYSICIAN [place] PROMETHAZ S GROUP INE HCL UP TO 50 MG RADEX ABD 26660 [place] COMPL 4 [facility] AQT ABD IMAGING W/S/E/D ASS VIEWS 1 [facility] GREENE 85295 [place] RETROPERI 4 [facility] TONEAL IMAGING REAL TIME ASS W/IMAGE LIMITED OPHTH 70057 SCIFRES SCIFRES MEDICAL 4 ANG ANG XM&EVAL COMPRE NEW PT 1/> VST RADIOLOGI 26359 [facility] C 4 HARIS [facility] EXAMINATI EMERGENCY ON [place] [address] [facility] ABDOMEN & 4 PELVIS W/CONTRAS T MATERIAL INJECTION J0696 [facility] 4 [facility] PAR[facility] CEFTRIAXO NE SODIUM PER 250 MG THERAPEUT 90412 [facility] IC 4 [facility] PROPHYLAC TIC/DX INJECTION SUBQ/IM INJECTION J1885 [facility] 4 [facility] KETOROLAC TROMETHAM INE PER 15 MG INJECTION J1885 [facility] 4 PHYSICIAN PHYSICIAN KETOROLAC S GROUP S GROUP TROMETHAM INE PER 15 MG THERAPEUT 66415 [facility] IC 4 PHYSICIAN PHYSICIAN PROPHYLAC S GROUP S GROUP TIC/DX INJECTION SUBQ/IM INJECTION J2550 [facility] 4 PHYSICIAN PHYSICIAN PROMETHAZ S GROUP S GROUP INE HCL UP TO 50 MG INJECTION J2550 [facility] 4 PHYSICIAN PHYSICIAN PROMETHAZ S GROUP S GROUP INE HCL UP TO 50 MG THERAPEUT 65635 [facility] IC 4 PHYSICIAN PHYSICIAN PROPHYLAC S GROUP S GROUP TIC/DX INJECTION SUBQ/IM INJECTION J1885 [facility] 4 PHYSICIAN PHYSICIAN KETOROLAC S GROUP S GROUP TROMETHAM INE PER 15 MG INJECTION J1200 [facility] 4 PHYSICIAN PHYSICIAN DIPHENHYD S GROUP S GROUP RAMINE HCL UP TO 50 MG URINLS 19336 [facility] DIP 4 KT KT STICK/TAB LET REAGNT NON-AUTO MICRSCPY INJECTION J1885 [facility] DICKENS 4 [facility] MACARIO KETOROLAC TROMETHAM INE PER 15 MG THERAPEUT 86607 IVAN DICKENS IC 4 MACARIO MACARIO PROPHYLAC TIC/DX INJECTION SUBQ/IM INJECTION J1040 IVAN DICKENS 4 MACARIO MACARIO METHYLPRE DNISOLONE ACETATE 80 MG SUSCEPTIB 79743 [facility] LTY STDY 4 [facility] ANTIMICRB INC INC IAL MICRO/AGA R DILUTJ CULTURE 41429 [facility] BCT [facility] ISOL&PRSM INC INC PTV ID ISOLATE EA URINE CULTURE 71171 [facility] BACTERIAL 4 [facility] INC INC QUANTTATI VE COLONY COUNT URINE RADEX [address] TRA SPINE 4 CERVICAL 4 OR 5 VIEWS GROUND A0425 [facility] 3 CASI LANCE PER CO EMS CO EMS STATUTE [facility] 22208 [place] JAM M[facility] JAM HEAD/BRAI 3 N W/O CONTRAST MATERIAL AMB A0427 [facility] SERVICE 3 CASI LANCE ALS CO EMS CO EMS EMERGENCY TRANSPORT LEVEL 1 THERAPEUT 79524 FIELD AMB FIELD AMB IC 3 PROPHYLAC TIC/DX INJECTION SUBQ/IM INJECTION J1885 FIELD AMB FIELD AMB 3 KETOROLAC TROMETHAM INE PER 15 MG SLINGS A4565 [facility] 3 RADEX 60438 LENA LENA SHOULDER 3 [facility]PLE[facility] MINIMUM 2 [place] [address] [facility] AMYLASE 3 [facility] [address] [facility] S[facility] LIPASE 3 [facility] [address] [facility] AMYLASE 3 JOCELYNN PATTERSONA BILIRUBIN 00771 [facility] TOTAL 3 JEA JEA TRANSFERA 56158 [facility] SE 3 JOCELYNN PATTERSONA ASPARTATE AMINO AST SGOT TRANSFERA 58764 [facility] SE 3 JOCELYNN PATTERSONA ALANINE AMINO ALT SGPT ALBUMIN 19512 [facility] SERUM 3 JOCELYNN JEA PLASMA/ OLE BLOOD PROTEIN 26114 [facility] XCPT 3 JOCELYNN CABEZAS REFRACTOM ETRY SERUM PLASMA/ L BLD BLOOD 56894 [facility] COUNT 3 JEA JEA COMPLETE AUTO&[place] [address] KILPELA KILPELA PHOSPHATA 3 JOCELYNN CABEZAS SE ALKALINE APPL 82412 [facility] MODALITY 3 FAUZIA FAUZIA 1/> AREAS ELEC STIMJ UNATTENDE D THERAPEUT 90350 [facility] IC PX 1/> 3 FAUZIA FAUZIA AREAS EACH [address] [place] [address] [facility]ET [facility]CH[facility] 1/> AREAS 3 FAUZIA FAUZIA EACH 15 MIN NEUROMUSC REEDUCA CHIROPRAC 13911 [facility] TIC 3 FAUZIA FAUZIA MANIPULAT JACK TX SPINAL 3-4 REGIONS CHIROPRAC 35592 [facility] TIC 3 FAUZIA FAUZIA MANIPULAT JACK [place] SPINAL 3-4 REGIONS APPL 08002 [facility] MODALITY 3 FAUZIA FAUZIA 1/> AREAS ULTRASOUN D EA 15 MIN THERAPEUT 47138 [facility] [place] IC PX 1/> 3 FAUZIA FAUZIA AREAS EACH 15 MIN EXERCISES APPL 71123 [facility] MODALITY 3 FAUZIA FAUZIA 1/> AREAS ELEC STIMJ UNATTENDE D IAADIADOO 68523 [facility] HARPEL 3 KT KT TRICHOMON VAGINALIS IADNA 80287 [facility]L NEISSERIA 3 KT KT GONORRHOE AE DIRECT PROBE TQ CULTURE 27803 HARPEL HARPEL CHLAMYDIA 3 KT KT ANY SOURCE IADNA 68064 HARPE[facility] HARPEL HERPES 3 KT KT SIMPLX VIRUS DIRECT PROBE TQ URINLS 82715 [facility]L DIP 3 KT KT STICK/TAB LET REAGNT NON-AUTO MICRSCPY ANE 56047 [facility] CENT[facility] UPPER GI 3 ZOH ZOH ENDOSCOPY PROXIMAL TO DUODENUM EGD 95089 NICKL III NICKL III INTRMURAL 3 KHRIS KHRIS NEEDLE ASPIR/BIO P ALTERED ANATOMY CYTP FINE 28166 JESI JESI NDL 3 WENDY WENDY ASPIRATE IMMT CYTOHIST STD DX 1ST CYTP EVAL 45368 JESI JESI FINE 3 WENDY WENDY NEEDLE ASPIRATE INTERP & REPORT CATHETER C1753 [facility] INTRAVASC 3 Y Y [facility] ULTRASOUN D RINGERS J7120 [facility] LACTATE 3 Y Y [facility] UP TO 1000 CC INJECTION J0330 [facility] 3 Y Y [facility] UP TO 20 MG INJECTION J2405 [facility] 3 Y [facility] ON HCL PER 1 MG ESOPHAGOG 19688 STROUD ROBERT STROUD ROBERT ASTRODUOD 3 ENOSCOPY TRANSORAL DIAGNOSTI C ANES 83171 EUGENIA GUEVARA UPPER GI 3 ENDOSCOPY PROXIMAL TO DUODENUM URINLS 26871 HARPEL HARPEL DIP 3 KT KT STICK/[place] [address] LENA LENA ABDOMEN & 3 [facility] PELVIS W/CONTRAS T MATERIAL ECG 09072 PETE BAEZA WENDY ROUTINE 3 EMERGENCY ECG SERVICES W/LEAST 12 LDS I&[place] [address] SONIDO SONIDO INFUSION 3 [facility] THERAPY/P INC INC ROPHYLAXI S /DX 1ST TO 1 HR THERAPEUT 69611 SONIOD SONIDO IC 3 [facility] INJECTION INC INC IV PUSH EACH NEW DRUG BLOOD 97191 SONIDO SONIDO COUNT 3 [facility] COMPLETE INC INC AUTO&AUTO DIFRNTL WBC INJECTION J2405 [facility] HEAD 3 [facility] ONDANSETR INC INC ON HCL PER 1 MG COMPREHEN 87653 SONIDO SONIDO SIVE 3 [facility] [place] [address] SONIDO SONIDO INFUSION 3 [facility] THERAPY INC INC PROPHYLAX [place] [address] SONIDO HEAD ABDOMEN & 3 [facility] PELVIS INC INC W/O CONTRAST MATERIAL URNLS DIP 56727 SONIDO HEAD 3 [facility] STICK/TAB INC INC LET REAGENT AUTO MICROSCOP Y LIPID 33199 COMBINED COMBINED PANEL 3 PHYSIC[place] [address] COMBINED COMBINED THYROXINE 3 PHYSICIAN PHYSICIAN TOTAL S LA S [place] IAADI 01208 COMBINED COMBINED INFFLUENZ 3 PHYSICIAN PHYSICIAN A A VIRUS S LA S LA IAADI 13342 COMBINED COMBINED INFLUENZA 3 PHYSICIAN PHYSICIAN B VIRUS S LA S LA CUL BACT 24890 COMBINED COMBINED XCPT 3 PHYSICIAN PHYSICIAN URINE S LA S LA BLOOD/STO OL AEROBIC ISOL THYROID 48277 COMBINED COMBINED HORM 3 PHYSICIAN PHYSICIAN UPTK/THYR S LA S LA OID HORMONE BINDING RATIO PARTICLE 39616 COMBINED COMBINED AGGLUTINA 3 PHYSICIAN PHYSICIAN TION S LA S LA SCREEN EACH ANTIBODY SEDIMENTA 79682 COMBINED COMBINED TION RATE 3 PHYSICIAN PHYSICIAN RBC S LA S LA NON-AUTOM ATED URNLS DIP 51263 HARPEL HARPEL 3 KT KT STICK/TAB LET RGNT NON-AUTO W/O MICRSCP COMPREHEN 46906 S[facility]O HEAD SIVE 3 [facility] METABOLIC INC INC PANEL IAADI 32210 SONIDO HEAD INFLUENZA 3 [facility] B VIRUS INC INC IAADI 71464 SONIDO HEAD INFFLUENZ 3 [facility] A A VIRUS INC INC URNLS DIP 33873 SONIDO HEAD 3 [facility] STICK/TAB INC INC [place] [address] SONIDO HEAD LIPASE 3 [place] [address] SONIDO HEAD INFUSION 3 [facility] THERAPY/P INC INC ROPHYLAXI S /DX 1ST TO 1 HR THERAPEUT 26946 SONIDO HEAD IC 3 [facility] INJECTION INC INC IV PUSH EACH NEW DRUG RADIOLOGI 61699 LENA LENA C EXAM 3 [facility] CHEST 2 VIEWS FRONTAL&L ATERAL BLOOD 65464 SONIDO HEAD COUNT 3 [facility] COMPLETE INC INC AUTO&AUTO DIFRNTL WBC INJECTION J2405 [facility]O HEAD 3 [facility] ONDANSETR INC INC ON HCL PER 1 MG APPL 43058 LISET HUTCHINS MODALITY 3 FAUZIA FAUZIA 1/> ARE[place] [address] LISET HUTCHINS 1/> AREAS 3 FAUZIA FAUZIA EACH 15 MIN NEUROMUSC REEDUCA APPLICATI 58307 LISET HUTCHINS ON 3 FAUZIA FAUZIA MODALITY 1/> AREAS HOT/COLD PACKS CHIROPRAC 08601 LISET HUTCHINS TIC 3 FAUZIA FAUZIA MANIPULAT JACK TX SPINAL 3-4 REGIONS CHIROPRAC 59882 LISET HUTCHINS TIC 3 FAUZIA FAUZIA MANIPULAT JACK TX SPINAL 3-4 REGIONS APPLICATI 01929 LISET HUTCHINS ON 3 FAUZIA FAUZIA MODALITY 1/> AREAS [place] [address] LISET HUTCHINS 1/> AREAS 3 FAUZIA FAUZIA EACH 15 MIN NEUROMUSC REEDUCA APPL 42041 LISET HUTCHINS MODALITY 3 FAUZIA FAUZIA 1/> AREAS ELEC STIMJ UNATTENDE D RADIOLOGI 91191 LENA LENA C 3 [facility] EXAMINATI ON KNEE 3 VIEWS CULTURE 38141 SONIDO HEAD BACTERIAL 2 [facility] INC INC QUANTTATI VE COLONY COUNT URINE CULTURE 16121 SONIDO HEAD BCT 2 [facility] ISOL&PRSM INC INC PTV ID ISOLATE EA URINE URINLS 16271 HARPEL HARPEL DIP 2 KT KT STICK/TAB LET REAGNT NON-AUTO MICRSCPY SUSCEPTIB 41719 SONIDO HEAD LTY STDY 2 [facility] ANTIMICRB INC INC IAL MICRO/AGA R DILUTJ URNLS DIP 07343 SONIDO HEAD 2 [facility] STICK/TAB INC INC LET REAGENT AUTO MICROSCOP Y THERAPEUT 57698 SONIDO HEAD IC 2 [facility] INJECTION INC [place] [address] SONIDO HEAD INFUSION 2 [facility] THERAPY/P INC INC ROPHYLAXI S /DX 1ST TO 1 HR 3D 86985 SONIDO HEAD RENDERING 2 [facility] INC INC W/INTERP& [place] [address] SONIDO HEAD ABDOMEN & 2 [facility] PELVIS INC INC W/O CONTRAST MATERIAL URINLS 97395 HARPEL HARPEL DIP 2 KT KT STICK/TAB LET REAGNT NON-AUTO [facility]CR[facility]PY HOSP[facility] G0378 SONIDO HEAD OBSERVATI 2 [facility] ON INC INC SERVICE PER HOUR [place] PROC G0238 SONIDO HEAD IMPRV 2 [facility] RESP INC INC FUNCT NOT G0237 [facility] G0378 SONIDO HEAD OBSERVATI 2 [facility] ON INC INC SERVICE PER HOUR NONINVASI 66397 SONIDO HEAD VE 2 [facility] EAR/PULSE INC INC OXIMETRY OVERNIGHT MONITOR BLOOD 61597 SONIDO HEAD COUNT 2 [facility] [place] [address] SONIDO HEAD INFUSION 2 [facility] THERAPY/P INC INC ROPHYLAXI S /DX 1ST TO 1 HR THERAPEUT 72771 SONIDO HEAD IC 2 [facility] INJECTION INC INC IV PUSH EACH NEW DRUG URNLS DIP 24577 SONIDO HEAD 2 [facility] STICK/TAB INC INC LET REAGENT AUTO MICROSCOP Y SUSCEPTIB 62993 SONIDO HEAD LTY STDY 2 [facility] ANTIMICRB INC INC IAL MICRO/[place] V [address]148 PATHOLOGY PETE SURG 2 & GABBY PATHOLOGY CYTOLOGY LAB GROSS&MACARIO ROSCOPIC EXAM BLOOD 85356 SONIDO HEAD COUNT 2 [facility] HEMOGLOBI INC INC N VAG HYST 75703 SCHULSTAD SCHULSTAD 250 GM/< 2 LELO LELO W/RMVL TUBE&/OVA RY LAPS 94523 SONIDO HEAD W/VAG 2 [facility] HYSTERECT INC INC 250 GM/&RMVL TUBE&/OVA JUAN ANESTHESI 95163 COMMUNITY JOSE L ARABELLA A VAGINAL 2 ANESTH OF THE HYSTERECT BLUE VANE INCL BIOPSY URINE 87856 SONIDO HEAD 2 [facility] TEST INC INC VISUAL COLOR CMPRSN METHS CULTURE 29686 SONIDO HEAD BCT 2 [facility] ISOL&PRSM INC INC PTV ID ISOLATE EA URINE CULTURE 92917 SONIDO YORKON BACTERIAL 2 [facility] INC INC QUANTTATI VE COLONY COUNT URINE THERAPEUT 54056 SONIDO HEAD IC 2 [facility] PROPHYLAC INC INC TIC/DX INJECTION SUBQ/IM SMR PRIM 30605 HARPEL HARPEL SRC WET 2 KT KT MOUNT NFCT AGT BLOOD 92516 SONIDO HEAD COUNT 2 [facility] COMPLETE INC INC AUTO&AUTO DIFRNTL WBC IADNA 16674 HARPEL HARPEL NEISSERIA 2 KT KT GONORRHOE AE DIRECT PROBE TQ CULTURE 67833 HARPEL HARPEL CHLAMYDIA 2 KT KT ANY SOURCE URINLS 50214 HARPEL HARPEL DIP 2 KT KT STICK/[place] [address] SONIDO HEAD HEAD/BRAI 2 [facility] N W/O INC INC CONTRAST MATERIAL CT ORBIT 04078 OWEN PAREDES SELLA/POS 2 [facility] T IMAGING FOSSA/E[place] [address] SONIDO HEAD INFUSION 2 [facility] THERAPY/P INC INC ROPHYLAXI S /DX 1ST TO 1 HR THERAPEUT 37155 SONIDO HEAD IC 2 [facility] INJECTION INC INC IV PUSH EACH NEW DRUG SUSCEPTIB 28280 MEDICAL MEDICAL ILITY 2 [facility]AGNOST[facility] ANTIMICRO BIAL DISK METHOD IADNA NOS 53855 MEDICAL MEDICAL 2 DIAGNOSTI DIAGNOSTI AMPLIFIED [facility] PROBE TQ EACH ORGANISM IADNA 19711 MEDICAL MEDICAL STREPTOCO 2 DIAGNOSTI DIAGNOSTI CCUS [facility] GROUP B AMPLIFIED PROBE TQ THERAPEUT 38525 SONIDO HEAD IC 2 [facility] PROPHYLAC INC INC TIC/DX INJECTION SUBQ/IM 3D 79888 SONIDO ARTURO KIR RENDERING 2 [facility] INC W/INTERP& POSTPROC DIFF WORK STATION CT UPPER 25227 SONIDO SEKOU EXTREMITY 2 [facility] PING W/O INC CONTRAST MATERIAL URINE 63795 SONIDO HEAD 2 [facility] TEST INC INC VISUAL COLOR CMPRSN METHS MODERATE 67904 PETE MYERS SEDATJ 2 EMERGENCY KARO SAME SERVICES PHYS/QHP 5/>YRS [place]IT [address] [place] [address] PETE MYERS SHOULDER 2 EMERGENCY KAR[facility] DISLC SERVICES W/MANIPUL ATION W/O ANES THER 37392 SONIDO YORKON PROPH/DX 2 [facility] NJX IV INC INC PUSH SINGLE/1S T SBST/DRUG RADEX 05659 SONIDO BRIDGERMER SPINE 2 [facility] Y CO CERVICAL INC HEALTH 6 OR MORE CENTER VIEWS RADEX 19852 OWEN FISCHERUTCHER SHOULDER 2 [facility] COMPLETE IMAGING MINIMUM 2 ASS VIEWS RADEX 17145 OWEN FISHCERUTCHER SPINE 2 [facility] CERVICAL IMAGING 4 OR 5 ASS VIEWS DRUG SCR G0434 HIEU HAM HIEU HAM NOT 2 CHROMATOG RAPHIC; ANY NUMBER PT ENC MANUAL 10951 SONIDO HEAD THERAPY 2 [facility] TQS 1/> INC INC REGIONS EACH 15 MINUTES APPL 71097 SONIDO HEAD MODALITY 2 [facility] 1/> AREAS INC INC VASOPNEUM ATIC DEVICES THERAPEUT 44557 SONIDO HEAD IC PX 1/> 2 [facility] AREAS INC INC EACH 15 MIN EXERCISES APPL 79437 SONIDO HEAD MODALITY 2 [facility] 1/> AREAS INC INC ELEC STIMJ UNATTENDE D PHYSICAL 93318 SONIDO HEAD THERAPY 2 [facility] EVALUATIO INC INC N INJECTION 06608 [place] MENON 2 ANESTHESI MACARIO ANESTHETI A GROUP C AGENT PSC SUPRASCAP ULAR NERVE INJECTION 40219 [place] ANES 2 ANESTHESI MACARIO OTHER A GROUP PERIPHERA PSC L NERVE/BRA [facility] ARTHROSCO 15409 WO[place] TRA WOOTEN TRA PY 2 SHOULDER DISTAL CLAVICULE CTOMY ANES 44435 [place] ARTHRS 2 ANESTHESI MACARIO HUMERAL A GROUP H/N PSC STRNCLAV & SHOULDER NOS ARTHROSCO 49766 WO[place] TRA WOOTEN TRA PY 2 SHOULDER SURGICAL CAPSULORR HAPHY SINGLE 02758 [place] NERVE 2 ANESTHESI MACARIO BLOCK A GROUP INJECTION PSC ARM NERVE BASIC 70717 [facility] METABOLIC 2 N N PANEL [facility] CALCIUM HOSPITA HOSPITA TOTAL GONADOTRO 12189 [facility] PIN 2 N N CHORIONIC [facility] HOSPITA HOSPITA QUALITATI VE COLLECTIO 72834 [facility] N VENOUS 2 N N BLOOD [facility] VENIPUNCT HOSPITA HOSPITA URE BLOOD 33826 [facility] COUNT 2 N N COMPLETE [facility] AUTO&AUTO HOSPITA HOSPITA D[place]RNTL WBC [place] ANY [address] [place] TRA WO[place] TRA JT UPPER 2 EXTREMITY W/O CONTRAST MATRL RADEX 20290 WO[place] TRA WOOTEN TRA SHOULDER 2 COMPLETE MINIMUM 2 [place] [address] [facility] TRANSVAGI 2 [facility] NAL CUL BACT 46967 COMBINED COMBINED XCPT 2 PHYSICIAN PHYSICIAN URINE S LA S LA BLOOD/STO OL AEROBIC ISOL SMR PRIM 83431 MARY JANE [place] SRC WET 2 [facility] MOUNT NFCT AGT ANTIBODY 68034 COMBINED COMBINED CHLAMYDIA 2 PHYSICIAN PHYSICIAN S LA S LA URNLS DIP 83460 [facility]ANE [facility] 2 [facility] STICK/TAB LET RGNT NON-AUTO W/O MICRSCP CLOSED 34997 REESE PING REESE PING TREATMENT 1 NASAL FRACTURE W/[place] [address] [place] MAXILLOFA 1 [facility] CIAL W/[place] [address] SONIDO HEAD CERVICAL 1 [facility] SPINE W/O INC INC CONTRAST MATERIAL INJECTION J2405 SONIDO [place]ON 1 [facility] HOSP ONDANSETR INC INC [place] HCL [place] [address] [place] [address] [place] HEAD/BRAI 1 [facility] N W/O IMAGING CONTRAST ASS MATERIAL URINE 55925 SONIDO HEAD 1 [facility]OSP TEST INC INC VISUAL COLOR CMPRSN METHS 3D 56956 SONIDO HEAD RENDERING 1 [facility]OS[facility] INC INC W/INTERP& POSTPROC DIFF WORK STATION 3D 67651 SONIDO HEAD RENDERING 1 [facility] W/INTERP INC INC & POSTPROCE SS SUPERVISI ON INITIAL 52794 ROBERTO MEJIA MORTEZA INPATIENT 1 CONSULT NEW/ESTAB PT 20 MIN MRI 01077 CENTRAL WOOTEN TRA SPINAL 1 [place] CANAL ORTHOPAED THORACIC ICS PLC W/O CONTRAST MATRL RADEX 73274 CENTRAL [place] TRA SPINE 1 [place] THORACIC ORTHOPAED 2 VIEWS ICS PLC RADEX 43806 [place] SPINE 1 [facility] THORACIC IMAGING 3 VIEWS ASS URINE 03980 SONIDO SONIDO 1 [facility] TEST INC INC VISUAL COLOR CMPRSN METHS RADEX 21124 [place] SPINE 1 [facility] LUMBOSACR IMAGING AL ASS MINIMUM 4 VIEWS SUSCEPTIB 93450 SONIDO HEAD LTY STDY 1 [facility] ANTIMICRB INC INC IAL MICRO/AGA R DILUTJ URNLS DIP 02174 SONIDO HEAD 1 [facility] STICK/TAB INC INC LET REAGENT AUTO MICROSCOP Y URINE 70335 SONIDO HEAD 1 [facility] TEST INC INC VISUAL COLOR CMPRSN METHS CULTURE 15843 SONIDO HEAD BACTERIAL 1 [facility] INC [place] [address] [place] TRANSVAGI 1 [facility] NAL IMAGING ASS CULTURE 47126 SONIDO HEAD BCT 1 [facility] ISOL&PRSM [place] [address] [place] NICKELS THORACIC 1 MEDICAL [place] SPINE W/O SERV CONTRAST FOUNDATIO MATERIAL RADEX 55169 [place] SHOULDER 1 [facility] [place] COMPLETE SERV MINIMUM [address] [place] [address] [place] CERVICAL 1 MEDICAL [place] SPINE W/[place] [address] SONIDO HEAD CERVICAL 1 [facility] SPINE W/O INC INC CONTRAST MATERIAL URNLS DIP 19717 SONIDO HEAD 1 [facility] STICK/TAB INC INC LET REAGENT AUTO MICROSCOP Y 3D 49557 SONIDO HEAD RENDERING 1 [facility] INC INC W/INTERP& POSTPROC DIFF WORK STATION URINE 71850 SONIDO SONIDO 1 [facility] TEST INC INC VISUAL COLOR CMPRSN METHS URINE 05124 SONIDO HEAD 1 [facility] TEST INC [place] [address] SONIDO HEAD TRANSVAGI 1 [facility] NAL INC INC CULTURE 92656 SONIDO HEAD BCT 1 [facility] ISOL&PRSM INC INC PTV ID ISOLATE EA URINE CULTURE 67563 SONIDO HEAD BACTERIAL 1 [facility] INC INC QUANTTATI VE COLONY COUNT URINE COMPREHEN 46541 SONIDO HEAD SIVE 1 [facility] METABOLIC INC INC PANEL URNLS DIP 65903 SONIDO HEAD 1 [facility] STICK/TAB INC INC [place] [address] SONIDO HEAD LIPASE 1 [facility] INC INC SUSCEPTIB 01569 SONIDO HEAD LTY STDY 1 [facility] ANTIMICRB INC INC IAL MICRO/AGA R DILUTJ BLOOD 63170 SONIDO HEAD COUNT 1 [facility] COMPLETE INC INC AUTO&[place] [address] SONIDO HEAD AMYLASE 1 [facility] INC INC COLPOSCOP 20521 [facility] Y VULVA [facility] W/BIOPSY CLINIC OF APRYL RADEX 76099 [facility] SPINE 1 Y Y THORACIC [facility] 2 VIEWS RADEX 22352 [facility] SPINE 1 RADIOLOGY THORACIC 2 VIEWS RADEX 22694 [facility] SPINE 1 RADIOLOGY CERVICAL 2 OR 3 [place] [address] [facility] EMERGENCY DEV VERTEBRAL SERVICES PROCESS FRACTURE RADEX 65457 [place] LE[place] SHOULDER 1 [facility] COMPLETE IMAGING MINIMUM 2 ASS VIEWS SBSQ 66666 GARIMA SON OBSERVATI 1 MEDICAL LER TEJINDER ON SERV CARE/DAY FOUNDATIO 25 MINUTES AMB [id number] [facility] SERVICE 1 AMBULANCE AMBULANCE ALS SERVICE SERVICE EMERGENCY TRANSPORT LEVEL 1 AMB A0431 AIR AIR SERVICE 1 METHODS METHODS CONVNTION [facility] AIR SRVC TRANSPORT [address] LAPS 25307 [facility] FULG/EXC 1 [facility] OVARY CLINIC OF VISCERA/P APRYL ERITONEAL SURFACE ANESTHESI 68873 COMMUNITY ZEINA A 1 ANESTH MORA INTRAPERI OF THE TONEAL BLUE [place] [address] SONIDO HEAD INFUSION 1 [facility] THERAPY INC INC PROPHYLAX IS/DX EA HOUR OTH 6919 SONIDO HEAD EXCISION/ 1 [facility] DESTRUC INC INC UTERUS&JOSE PPORTING STRCT GONADOTRO 22200 SONIDO HEAD PIN 1 [facility] CHORIONIC INC INC QUALITATI VE BLOOD 41386 SONIDO HEAD COUNT 1 [facility] COMPLETE INC INC AUTO&AUTO DIFRNTL WBC BASIC 12001 SONIDO HEAD METABOLIC 1 [facility] PANEL INC INC CALCIUM TOTAL URINE 07668 SONIDO HEAD 1 [facility] TEST INC INC VISUAL COLOR CMPRSN METHS CULTURE 33567 SONIDO HEAD BACTERIAL 1 [facility] INC INC QUANTTATI VE COLONY COUNT URINE CULTURE 23303 SONIDO HEAD BCT 1 [facility] ISOL&PRSM INC INC PTV ID ISOLATE EA URINE SUSCEPTIB 51410 SONIDO HEAD LTY STDY 1 [facility] ANTIMICRB INC INC IAL MICRO/AGA R DILUTJ URNLS DIP 89478 SONIDO HEAD 1 [facility] STICK/TAB INC INC [place] [address] PATHOLOGY PATHOLOGY SURG 1 & & PATHOLOGY CYTOLOGY CYTOLOGY LAB LAB GROSS&MACARIO ROSCOPIC EXAM URINE 66990 [facility] TEST CLINIC OF VISUAL APRYL COLOR CMPRSN METHS COLPOSCOP 37226 [facility] Y CERVIX 1 [facility] BX CERVIX CLINIC OF & APRYL ENDOCRV CURRETAGE REMOVAL 11257 [facility] INTRAUTER 1 [facility] INE CLINIC OF DEVICE APRYL IUD CYTP C/V 59808 PATHOLOGY PATHOLOGY AUTO THIN 1 & & LYR CYTOLOGY CYTOLOGY PREPJ SCR LAB LAB MNL RESCR PHYS CYTP 58261 PATHOLOGY PATHOLOGY CERVICAL/ 1 & & VAGINAL CYTOLOGY CYTOLOGY REQ LAB LAB INTERP PHYSICIAN RADEX ABD 88337 [facility] 0 [facility] AQT ABD IMAGING W/S/E/D ASS VIEWS 1 VIEW CH ECG 34847 SONIDO HEAD ROUTINE 0 [facility] ECG INC INC W/LEAST 12 LDS TRCG ONLY W/O I&R URNLS DIP 82057 SONIDO HEAD 0 [facility] STICK/TAB INC INC [place] [address] SONIDO HEAD LIPASE 0 [facility] INC INC URINE 64173 SONIDO HEAD 0 [facility] TEST INC INC VISUAL COLOR CMPRSN METHS COMPREHEN 57870 SON[facility]O HEAD SIVE 0 [facility] [place] [address] SONIDO HEAD AMYLASE 0 [facility] INC INC ECG 64195 SONIDO JOSÉ MANUEL, ROUTINE 0 [facility] W/LEAST PROF SERV 12 LDS I&R ONLY BLOOD 94724 SONIDO SONIDO COUNT 0 [facility] COMPLETE INC INC AUTO&AUTO DIFRNTL WBC DESTRUCTI 86448 [facility], ON 0 [facility]ALTH [facility] J LESIONS CLINIC OF [facility] SIM[facility] [place] [facility] COLPOSCOP 61668 [facility], Y VULVA 0 HEALTH [facility] [facility] [place] [facility] MRI 53611 PHYSICIAN DARIN SPINAL 0 Gilbert Ramon CANAL SERVICES CERVICAL PSC W/O CONTRAST MATRL APPL 03918 SONIDO HEAD MODALITY 0 [facility] 1/> AREAS INC INC ELEC STIMJ UNATTENDE D APPL 69974 SONIDO HEAD MODALITY 0 [facility] 1/> AREAS INC INC VASOPNEUM ATIC DEVICES APPLICATI 17293 SONIDO HEAD ON 0 [facility] MODALITY INC INC 1/> AREAS HOT/COLD PACKS APPL 23437 SONIDO HEAD MODALITY 0 [facility] 1/> AREAS INC INC ULTRASOUN D EA 15 MIN THERAPEUT 95219 SONIDO HEAD IC PX 1/> 0 [facility] AREAS INC INC EACH 15 MIN EXERCISES THERAPEUT 14105 SONIDO HEAD IC PX 1/> 0 [facility] AREAS INC INC EACH 15 MIN EXERCISES PHYSICAL 83101 SONIDO HEAD THERAPY 0 [facility] EVALUATIO INC INC N APPL 44307 SONIDO HEAD MODALITY 0 [facility] 1/> AREAS INC INC ULTRASOUN D EA 15 MIN APPLICATI 43851 SONIDO HEAD ON 0 [facility] MODALITY INC INC 1/> AREAS HOT/COLD PACKS APPL 15617 SONIDO HEAD MODALITY 0 [facility] 1/> AREAS INC INC ELEC STIMJ UNATTENDE D PSYCHOLOG 71784 PHYSICIAN MARY WEBSTER 9 Gilbert Ramon TESTING SERVICES ADMN BY [facility] PurpleTeal MI HR MRI ANY 68183 [facility] UPPER 9 Y Y EXTREMITY [facility] W/O CONTRAST MATRL RADEX 21315 GARIMA ROBERTO, SHOULDER 9 MEDICAL TITO D COMPLETE SERV MINIMUM 2 FOUNDATIO VIEWS URINE 21064 [facility], 9 [facility] TEST CLINIC OF VISUAL COLOR [place] CMPRSN [facility] METHS RADEX 43133 SONIDO HEAD SHOULDER 9 [facility] COMPLETE INC INC MINIMUM 2 VIEWS RADEX 77237 [place] LE[place], SPINE 9 MEDICAL NARGIS CERVICAL IMAGING 6 OR MORE ASSOCIATE VIEWS S URINE 88191 VARUN R HARPEL, 9 SANTOSH Yañez TEST VISUAL COLOR CMPRSN METHS CUL BACT 13425 SONIDO HEAD AEROBIC 9 [facility] ADDL INC INC METHS DEFINITIV E EA ISOL CULTURE 83354 SONIDO SONIDO BACTERIAL 9 [facility] ANY INC INC SOURCE ANAEROBIC ISO&ID CUL BACT 84354 SON[facility]O HEAD XCPT 9 [facility] URINE INC INC BLOOD/[place] [address] SONIDO SONIDO INFUSION 9 [facility] THERAPY INC INC PROPHYLAX IS/DX EA HOUR I&D 99824 [facility], VULVA/PER 9 [facility] INEAL CLINIC OF ABSCESS [facility] ANESTHESI 21720 COMMUNITY BIB, Marjan VAGINAL 9 ANESTH SHERRELL A OF THE PROCEDURE BLUEGRASS W/BIOPSY NOS SUSCEPTIB 00986 SON[facility]O SONIDO LTY STDY 9 [facility] ANTIMICRB INC INC IAL MICRO/AGA R DILUTJ THERAPEUT 53603 [facility] IC 9 [facility] INJECTION [place] [address] [facility] HEAD INFUSION 9 [facility] THERAPY/P INC INC ROPHYLAXI S /DX 1ST TO 1 HR OTHER 7109 [facility] INCISION 9 [facility] OF VULVA INC INC AND PERINEUM BLOOD 61580 [facility] COUNT 9 [facility] COMPLETE INC INC AUTO&AUTO DIFRNTL WBC BASIC 02186 [facility] METABOLIC 9 [facility] PANEL INC INC CALCIUM TOTAL BASIC 62164 [facility] HEAD METABOLIC 9 [facility] PANEL INC INC CALCIUM TOTAL URNLS DIP 22124 [facility] HEAD 9 [facility] STICK/TAB INC INC LET REAGENT AUTO MICROSCOP Y BLOOD 02889 [facility] HEAD COUNT 9 [facility] COMPLETE INC INC AUTO&AUTO D[place]RNT[place] WBC LEVEL I [address] PATHOLOGY PATHOLOGY SURG 9 & & PATHOLOGY CYTOLOGY CYTOLOGY GROSS LAB [place] [address] PATHOLOGY PATHOLOGY SURG 9 & & PATHOLOGY CYTOLOGY CYTOLOGY LAB LAB GROSS&MACARIO ROSCOPIC EXAM COLPOSCOP 74223 [facility], Y CERVIX [address] CERVIX CLINIC OF & [facility]OCRV [place] [facility] BREAST 46318 [facility] HEAD REAL 9 [facility] TIME INC INC W/IMAGE DOCUMENTA TION THERAPEUT 85401 [facility], IC [address] PROPHYLAC CLINIC OF TIC/DX INJECTION [place] SUBQ/IM PLLC CYTP C/V 84602 PATHOLOGY PATHOLOGY AUTO THIN 9 & & LYR CYTOLOGY CYTOLOGY PREPJ SCR LAB LAB MNL RESCR PHYS CYTP 96474 PATHOLOGY PATHOLOGY CERVICAL/ 9 & & VAGINAL CYTOLOGY CYTOLOGY REQ LAB LAB INTERP PHYSICIAN THERAPEUT 66821 [facility], IC [address] PROPHYLAC CLINIC OF TIC/DX INJECTION [place] [facility] URNLS DIP 90671 [facility], 9 [facility] STICK/TAB CLINIC OF LET RGNT NON-AUTO [place] W/O PLLC MICRSCP URINE 12501 [facility] HEAD 9 [facility] TEST INC INC VISUAL COLOR CMPRSN METHS URNLS DIP 38667 [facility] HEAD 9 [facility] STICK/TAB INC INC LET REAGENT AUTO MICROSCOP Y URNLS DIP 07555 [facility], 9 [facility] STICK/TAB CLINIC OF LET RGNT NON-AUTO [place] W/O PLLC MICRSCP IADNA 47107 [facility] HEAD CHLAMYDIA 8 [facility] INC INC TRACHOMAT IS AMPLIFIED PROBE TQ SMR PRIM 14965 [facility] SRC WET 8 [facility] MOUNT INC INC NFCT AGT CUL BACT 30662 [facility] HEAD XCPT 8 [facility] URINE INC INC BLOOD/STO OL AEROBIC ISOL URINE 68648 [facility] HEAD 8 [facility] TEST INC INC VISUAL COLOR CMPRSN METHS URNLS DIP 04241 S[facility]O SONIDO 8 [facility] STICK/TAB INC INC LET REAGENT AUTO MICROSCOP Y IADNA 40158 [facility] HEAD NEISSERIA 8 [facility] INC INC GONORRHOE AE AMPLIFIED PROBE TQ BLOOD 77914 [facility] HEAD COUNT 8 [facility] COMPLETE INC INC AUTO&AUTO DIFRNTL WBC SEDIMENTA 75501 [facility] HEAD TION RATE 8 [facility] RBC INC INC NON-AUTOM ATED SUSCEPTIB 12809 [facility] HEAD LTY STDY 8 [facility] ANTIMICRB INC INC IAL MICRO/AGA R DILUTJ CUL BACT 58502 [facility] HEAD XCPT 8 [facility] URINE INC INC BLOOD/STO OL AEROBIC ISOL OPHTH 69268 DEIRDRE GILMORE, MEDICAL 8 ALAN A ALAN A XM&EVAL COMPRHNSV ESTAB PT 1/> [place] [address] [facility], TRANSVAGI 8 [facility] RADEX 78077 [facility] SHOULDER 8 Y Y [facility] MINIMUM 2 VIEWS 57136 [facility], TRANSVAGI [address] [facility] CT PELVIS [address] [place] LE[place], W/O 8 MEDICAL NARGIS CONTRAST IMAGING MATERIAL ASSOCIATE S 3D 88794 [place], RENDERING 8 MEDICAL NARGIS IMAGING W/INTERP& ASSOCI[place] [address] [place], ABDOMEN 8 MEDICAL ANRGIS W/O IMAGING CONTRAST ASSOCIATE MATERIAL S [place] [address]055 NARGIS C LENA, SPINAL 8 LENA NARGIS CANAL CERVICAL W/O CONTRAST MATRL 3D 71430 NARGIS C LENA, RENDERING 8 LENA NARGIS W/INTERP & POSTPROCE SS SUPERVISI ON RADEX [address] [place] CL[place], SPINE 8 MEDICAL EMIGDIO P CERVICAL IMAGING 6 OR MORE ASSOCIATE VIEWS S MRI ANY 47765 NARGIS C LENA, JT UPPER 8 LENA NARGIS EXTREMITY W/O CONTRAST MATRL CT UPPER 38365 CNTRL [place] CHILD, EXTREMITY 8 RADIOLOGY ROSANGELA P W/O CONTRAST MATERIAL RADEX 10133 [facility] SHOULDER 8 N N COMPLETE [facility] MINIMUM 2 [facility] VIEWS RADIOLOGI 59408 KAPIL DICK C 8 DON R DON R EXAMINATI ON CHEST SINGLE VIEW FRONTAL CUL BACT 55249 [facility] AEROBIC 8 [facility] ADDL INC INC METHS DEFINITIV E EA ISOL CUL BACT 54704 [facility] XCPT 8 [facility] URINE INC INC BLOOD/STO OL AEROBIC ISOL INCISION 57369 STEVEN HARRIS & 8 , MICHELLE , MICHELLE DRAINAGE ABSCESS SIMPLE/SI NGLE SUSCEPTIB 86217 [facility] LTY STDY 8 [facility] ANTIMICRB INC INC IAL MICRO/AGA R DILUTJ IAADI 93791 [facility] INFFLUENZ 8 [facility] A A VIRUS INC INC IAADI 31383 S[facility] INFLUENZA 8 [facility] [place] [place] [address] [facility] THER 8 [facility] PROPH/DX INC INC 1ST >1 HR INSJ 75993 [facility], NON-NDWEL 8 [facility] [place] [address] [facility] THER 8 [facility] PROPH/DX INC INC 1ST >1 HR BASIC 71478 [facility] METABOLIC 8 [facility] PANEL INC INC CALCIUM TOTAL URINE 79886 [facility] HEAD 8 [facility] TEST INC INC VISUAL COLOR CMPRSN METHS 3D 28109 SONIDOPANKAJ [place] RENDERING 8 [facility] INC INC W/INTERP& POSTPROC DIFF WORK STATION CT PELVIS 03217 [place] CLARA, W/O 8 MEDICAL EMIGDIO P CONTRAST IMAGING MATERIAL ASSOCIATE S URNLS DIP 50635 [facility] HEAD 8 [facility] STICK/TAB INC INC LET REAGENT AUTO MICROSCOP Y BLOOD 02072 [facility] HEAD COUNT 8 [facility] COMPLETE INC INC AUTO&[place] [address] [place] CL[place], ABDOMEN 8 MEDICAL EMIGDIO P W/O IMAGING CONTRAST ASSOCIATE MATERIAL S BLOOD 62646 SONIDOPANKAJ YORKON COUNT 8 [facility] COMPLETE INC INC AUTO&AUTO DIFRNTL WBC UROGRAPHY 90890 [place] LENA, IV W/WO 8 MEDICAL NARGIS KUB W/WO IMAGING TOMOGRAPH ASSOCIATE Y S BASIC 43821 [facility] [place] METABOLIC 8 [facility] PANEL INC INC CALCIUM TOTAL OTHER 45.13 Venkat Stroud MD OF INTEST Encounters Encounter Start End Date Code Location Performer Type Date EMERGENCY 86834 [facility] 7 7 [facility] DEPARTMEN INC T VISIT LOW/MODER SEVERITY [facility]OSPITAL [facility] Baptiste 7 7 [facility] OUTPATIEN INC T EMERGENCY 34994 AYAD KING 7 7 PHYSICIAN DEPARTMEN S, PLLC T VISIT HIGH/URGE NT SEVERITY HOSPITAL [facility] - 7 7 [facility] 80000 AYAD PERES DEPT 7 7 PHYSICIAN VISIT S, PLLC HIGH SEVERITY& THREAT FUNCJ EMERGENCY 11136 [facility] 7 7 [facility] HIGH/URGE NT SEVERITY EMERGENCY 63227 [facility] 7 7 [facility] T VISIT HIGH/URGE NT SEVERITY HOSPITAL [facility] - 7 7 [facility] 94494 AYAD DICKENS 7 7 PHYSICIAN DEPARTMEN S, PLLC T VISIT MODERATE SEVERITY OFFICE 66131 KATIE FERNANDEZ OUTPATIEN 7 7 T VISIT ORTHOPAED 15 ICS PSC MINUTES OFFICE 75261 KATIE FERNANDEZ OUTPATIEN 7 7 T NEW 30 ORTHOPAED MINUTES ICS PSC OFFICE 03202 [facility] 7 7 PHYSICIAN T VISIT GROUP 25 MINUTES [facility] UNIVERSIT - 6 6 [facility] T OFFICE 71032 GARIMA LONG CONSULTAT 6 6 MEDICAL ION SERV NEW/ESTAB FOUNDATIO PATIENT N 60 MIN [facility] UNIVERSIT - 6 6 [facility] T EMERGENCY 32763 AYAD ANAYA DEPT 6 6 PHYSICIAN FOR VISIT S, PLLC HIGH SEVERITY& THREAT FUNCJ PERIODIC 45762 [facility] SANTOSH PREVENTIV 6 6 PHYSICIAN KT Mejia MED EST S GROUP PATIENT 18-39 YRS HOSPITAL WAYNE - 6 6 [facility] 00166 AYAD ESCOTO DEPT 6 6 PHYSICIAN MERCEDES VISIT S, PLLC HIGH SEVERITY& THREAT FUNCJ EMERGENCY 77784 [facility] 6 6 [facility] DEPARTMEN INC T VISIT HIGH/URGE NT SEVERITY OFFICE 42579 [facility] VIAN OUTPATIEN 6 6 PHYSICIAN MACARIO T VISIT S GROUP 15 MINUTES OFFICE 14868 VARUN FROST OUTPATIEN 6 6 SANTOSH MERAZ T VISIT 15 MINUTES OFFICE 31711 [facility] JOSE GUADALUPE OUTPATIEN 6 6 PHYSICIAN T VISIT GROUP 15 MINUTES HOSPITAL PHYSICIAN - OTHER 6 6 [facility] SONIDO - 6 6 [facility] T OFFICE 08401 EAR, NOSE SHASHY OUTPATIEN 6 6 AND ABHIJIT T NEW 45 THROAT MINUTES [facility] SONIDO - 6 6 [facility]EN [facility] S[facility]IDO - 6 6 [facility]IEN [facility] T EMERGENCY 95044 AYAD CARDENAS DEPT 6 6 PHYSICIAN U STEPHON VISIT S, [facility] HIGH SEVERITY& THREAT FUNCJ EMERGENCY 23115 [facility] 6 6 [facility] HIGH/URGE NT SEVERITY OFFICE 32459 [facility] NEUMANN TER OUTPATIEN 6 6 PHYSICIAN T VISIT S GROUP 25 MINUTES OFFICE 02115 [facility] OUT[facility] 6 6 [place] THERON T VISIT ADULT & 15 PED MINUTES OFFICE 59322 [facility] CONSULTAT 6 6 [place] TEHRON ION ADULT & NEW/ESTAB PED PATIENT 60 MIN HOSPITAL PHYSICIAN - OTHER 6 6 [facility] S[facility]IDO - 5 5 [facility] OUTPATIEN INC T OFFICE 33239 Marjan GAINES OUTPATIEN 5 5 THUY ROACH T VISIT PSC 25 MINUTES OFFICE 37613 [facility] NEUMANN TER OUTPATIEN 5 5 PHYSICIAN T VISIT S GROUP 15 MINUTES OFFICE 95861 [facility] SHI OUTPATIEN 5 5 [facility] 10 MINUTES OFFICE 85195 [facility] MARCY OUTPATIEN 5 5 [facility] 10 MINUTES OFFICE 46745 DEIRDRE KERNS OUTPATIEN 5 5 T VISIT 10 MINUTES OFFICE [address] OUTPATIEN 5 5 [facility] 15 MINUTES OFFICE 22130 [facility] JOSE GUADALUPE OUTPATIEN 5 5 [facility] 15 MINUTES HOSPITAL S[facility]O - 5 5 [facility] OUTPATIEN [facility] OFFICE 59628 SON[facility]O JOSE GUADALUPE OUTPATIEN 5 5 [facility] 15 MINUTES EMERGENCY 17670 [facility] IVAN DEPT 5 5 PHYSICIAN [facility] VISIT S, PLLC HIGH SEVERITY& THREAT FUNJ OFFICE 25342 [facility] VIDAL OUTPATIEN 5 5 [facility] 15 MINUTES OFFICE 60511 SON[facility]O HICKS JR OUTPATIEN [address] MINUTES P OFFICE 43552 VARUN FROST OUTPATIEN 5 5 [facility] ROACH KT T VISIT 15 MINUTES OFFICE 87907 VARUN FROST OUTPATIEN 5 5 [facility] ROACH KT T VISIT 15 MINUTES HOSPITAL [facility] - 5 5 [facility] OUTPATIEN INC [facility] - 5 5 [facility] OUTPATIEN INC T OFFICE 30099 [facility] MARCY OUTPATIEN 5 5 PHYSICIAN EUG T VISIT S GROUP 15 MINUTES OFFICE 59440 [facility] IVNA OUTPATIEN 5 5 PHYSICIAN MACARIO T VISIT S GROUP 15 MINUTES OFFICE 23334 BA BA OUTPATIEN 5 5 WILLY WILLY T NEW 30 MINUTES HOSPITAL [facility] - 5 5 [facility] OUTPATIEN INC T OFFICE 19121 [facility] FRYMAN OUTPATIEN 5 5 PHYSICIAN EUG T VISIT S GROUP 15 MINUTES OFFICE 47760 [facility] IVAN OUTPATIEN 5 5 PHYSICIAN MACARIO T VISIT S GROUP 15 MINUTES OFFICE 38738 [facility] PETTEY OUTPATIEN 5 5 PHYSICIAN JAM T VISIT S GROUP 15 MINUTES EMERGENCY 90138 [facility] 5 5 HARIS PAT DEPARTMEN EMERGENCY T VISIT PHYS HIGH/URGE NT SEVERITY OFFICE 60382 [facility] IVAN OUTPATIEN 5 5 PHYSICIAN MACARIO T VISIT S GROUP 15 MINUTES HOSPITAL [facility] - 5 5 [facility] OUTPATIEN INC T EMERGENCY 36621 [facility] LILY DEPT 5 5 HARIS VISIT EMERGENCY HIGH PHYS SEVERITY& THREAT FUNCJ OFFICE 59423 [facility] IVAN OUTPATIEN 4 4 PHYSICIAN MACARIO T VISIT S GROUP 15 MINUTES EMERGENCY 57727 [facility] DEPT 4 4 HARIS VISIT EMERGENCY HIGH PHYS SEVERITY& THREAT FUNJ EMERGENCY 62336 [facility] 4 4 [facility]IS [facility] VISIT EMERGENCY HIGH PHYS SEVERITY& THREAT FUNCJ OFFICE 20900 [facility] OUTPATIEN 4 4 PARVEZ PARVEZ T VISIT 15 MINUTES OFFICE 02339 [facility] OUTPATIEN 4 4 PHYSICIAN T VISIT S GROUP 15 MINUTES OFFICE 13655 [facility] OUTPATIEN 4 4 PHYSICIAN T NEW 20 S GROUP MINUTES OFFICE 63593 HARPEL HARPEL OUTPATIEN 4 4 KT KT T VISIT 15 MINUTES OFFICE 10732 IVAN IVAN OUTPATIEN 4 4 MACARIO MACARIO T VISIT 15 MINUTES OFFICE 61670 IVAN DICKENS OUTPATIEN 4 4 MACARIO MACARIO T VISIT 10 MINUTES [facility] SONIDO - 4 4 [facility] OUTPATIEN INC T Emergency ROBERT Dickens MD (ER) 4 21:50 4 00:49 [facility] EMERGENCY 11681 IVAN DICKENS 4 4 MACARIO MACARIO DEPARTMEN T VISIT HIGH/URGE NT SEVERITY OFFICE [address] WOOTEN TRA OUTPATIEN 4 4 T VISIT 15 MINUTES OFFICE 25025 GREGG ESCOBEDO MERCEDES OUTPATIEN 3 3 T VISIT 25 MINUTES OFFICE 6[address] WOOTEN TRA OUTPATIEN 3 3 T VISIT 15 MINUTES EMERGENCY 97791 CELLAROSI CELLAROSI 3 3 - YORBA - YORBA DEPARTMEN PAT PAT T VISIT HIGH/URGE NT SEVERITY OFFICE 26976 FIELD AMB FIELD AMB OUTPATIEN 3 3 T VISIT 15 MINUTES Emergency ROBERT Dickens MD (ER) 3 20:23 3 21:19 [facility] EMERGENCY 53846 IVAN IVAN 3 3 MACARIO MACARIO DEPARTMEN T VISIT HIGH/URGE NT SEVERITY OFFICE 36739 KILPELA KILPELA OUTPATIEN 3 3 JEA JEA T VISIT 25 MINUTES OFFICE 68662 SHELLIE LIANA SHELLIE LIANA OUTPATIEN 3 3 T NEW 30 MINUTES OFFICE 79202 HARPEL HARPEL OUTPATIEN 3 3 KT KT T VISIT 15 MINUTES OFFICE 38800 LISET HUTCHINS OUTPATIEN 3 3 FAUZIA FAUZIA T VISIT 15 MINUTES PERIODIC 67398 HARPEL HARPEL PREVENTIV 3 3 KT KT E MED EST PATIENT 1839 YRS HOSPITAL UNIVERSIT - 3 3 Y [facility] T Inpatient IMP (IN) 3 14:37 3 11:20 OFFICE 84100 MYNOR LISAPATIEN 3 3 LUZ LUZ T VISIT 15 MINUTES OFFICE 07077 HARPEL HARPEL OUTPATIEN 3 3 KT KT T VISIT 15 MINUTES Emergency ROBERT Baeza MD (ER) 3 10:08 3 14:34 [facility] EMERGENCY 62725 PETE NGUYEN DEPT 3 3 EMERGENCY VISIT SERVICES HIGH SEVERITY& THREAT FUNCJ OFFICE 78722 MYNOR SHANE 3 3 LUZ LUZ T VISIT 15 MINUTES Emergency ROBERT Dickens MD (ER) 3 20:28 3 23:23 [facility] SONIDO - 3 3 [facility] OUTPATIEN INC T EMERGENCY 18368 [facility] 3 3 [facility] DEPARTMEN INC T VISIT HIGH/URGE NT SEVERITY EMERGENCY 59900 IVAN DICKENS DEPT 3 3 MACARIO MACARIO VISIT HIGH SEVERITY& THREAT FUNCJ OFFICE 42165 MYNOR SHANE 3 3 LUZ LUZ T VISIT 15 MINUTES OFFICE 99866 HARPEL HARPEL OUTPATIEN 3 3 KT KT T VISIT 15 MINUTES OFFICE 14582 HARPEL HARPEL OUTPATIEN 3 3 KT KT T VISIT 15 MINUTES Emergency ROBERT CESAR (ER) 3 14:55 3 16:[address] [facility] EMERGENCY 86839 [facility] 3 3 [facility] DEPARTMEN INC T VISIT MODERATE SEVERITY EMERGENCY 19346 TALI CESAR DEPT 3 3 III KARO III KARO VISIT HIGH SEVERITY& THREAT [facility] SONIDO - 3 3 [facility] OUTPATIEN INC T EMERGENCY 63510 PETE NGUYEN 3 3 EMERGENCY DEPARTMEN SERVICES T VISIT HIGH/URGE NT SEVERITY OFFICE 78394 LISET HUTCHINS OUTPATIEN 3 3 FAUZIA FAUZIA T VISIT 15 MINUTES HOSPITAL [facility] - 3 3 [facility] OUTPATIEN [facility] T OFFICE 69064 MYNOR LOWE OUTPATIEN 2 2 LUZ LUZ T VISIT 15 MINUTES OFFICE 22318 HARPEL HARPEL OUTPATIEN 2 2 KT KT T VISIT 15 MINUTES [facility] SONIDO - 2 2 [facility] OFFICE 04121 MYNOR LOWE OUTPATIEN 2 2 LUZ LUZ T VISIT 15 MINUTES HOSPITAL [facility] - 2 2 [facility] OUTPATIEN [facility] T EMERGENCY 18910 IVAN DICKENS 2 2 MACARIO MACARIO DEPARTMEN T VISIT HIGH/URGE NT SEVERITY HOSPITAL [facility] - 2 2 [facility] SONIDO - 2 2 [facility] SONIDO - 2 2 [facility] OUT[facility]EN [facility] T OFFICE 32075 HARPEL HARPEL OUTPATIEN 2 2 KT KT T VISIT 15 MINUTES INITIAL 07726 HARPEL HARPEL PREVENTIV 2 2 KT KT E MEDICINE NEW PT AGE 18-39YRS OFFICE 91062 GREGG LONG OUTPATIEN 2 2 T NEW 45 MINUTES OFFICE 25597 MYNOR LOWE OUTPATIEN 2 2 LUZ LUZ T VISIT 15 MINUTES EMERGENCY 64100 TALI CESAR DEPT 2 2 III KARO III KARO VISIT HIGH SEVERITY& THREAT FUNC EMERGENCY 88073 [facility] 2 2 [facility] DEPARTMEN [facility] T VISIT HIGH/URGE NT SEVERITY HOSPITAL [facility] - 2 2 [facility] OUTPATIEN [facility] EMERGENCY 77361 [facility] 2 2 [facility] T VISIT MODERATE SEVERITY HOSPITAL [facility] - 2 2 [facility] OUTPATIEN [facility] EMERGENCY 55871 PETE MYERS DEPT 2 2 EMERGENCY KARO VISIT SERVICES HIGH SEVERITY& THREAT [facility] SONID[facility] - 2 2 [facility] OUTPATIEN [facility] EMERGENCY 90764 [facility] 2 2 [facility] T VISIT HIGH/URGE NT SEVERITY OFFICE 83142 HIEU MOLINA OUTPATIEN 2 2 T VISIT 40 MINUTES OFFICE 33801 MYNOR LISAPATIEN 2 2 LUZ LUZ T VISIT 15 MINUTES HOSPITAL [facility] - 2 2 [facility] - 2 2 [facility] 50074 MYNOR LISAPATIEN 2 2 LUZ LUZ T VISIT 15 MINUTES OFFICE 93900 MYNOR RIZVIEN 2 2 LUZ LUZ T VISIT 15 MINUTES OFFICE 77975 WOOTEN TRA WOOTEN TRA OUTPATIEN 2 2 T VISIT 15 MINUTES OFFICE 93059 MYNOR RIZVIEN 2 2 LUZ LUZ T VISIT 15 MINUTES OFFICE 49197 WOOTEN [address] WOOTEN TRA OUTPATIEN 2 2 T VISIT 15 MINUTES OFFICE 05096 MARY JANE [facility]ON OUTPATIEN 2 2 ELIZABETH ELIZABETH T VISIT 25 MINUTES EMERGENCY 29411 REESE PING REESE PING DEPT 1 1 VISIT HIGH SEVERITY& THREAT FUNCJ EMERGENCY 06175 [facility] 1 1 [facility] DEPARTMEN INC T VISIT MODERATE SEVERITY [facility]OSPITAL [facility] - 1 1 [facility] OUTPATIEN INC T EMERGENCY 47830 PETE REESE PING DEPT 1 1 EMERGENCY VISIT SERVICES HIGH SEVERITY& THREAT [facility] - 1 1 [facility] OUTPATIEN INC T EMERGENCY 21629 [facility] 1 1 [facility] DEPARTMEN INC T VISIT MODERATE SEVERITY OFFICE 63778 [facility] TRA OUTPATIEN 1 1 [place] T VISIT ORTHOPAED 15 [facility] MINUTES OFFICE 58082 [facility] TRA OUTPATIEN 1 1 [place] T VISIT ORTHOPAED 15 [facility] MINUTES OFFICE 90095 MYNOR LOWE OUTPATIEN 1 1 LUZ LUZ T VISIT 15 MINUTES OFFICE 46567 MYNOR LOWE OUTPATIEN 1 1 LUZ LUZ T VISIT 15 MINUTES HOSPITAL [facility] - 1 1 [facility] OUTPATIEN INC T EMERGENCY 60667 [facility] 1 1 [facility] DEPARTMEN INC T VISIT MODERATE SEVERITY EMERGENCY 02583 PETE DICKENS 1 1 EMERGENCY [facility] DEPARTMEN SERVICES T VISIT HIGH/URGE NT SEVERITY EMERGENCY 75424 [facility] 1 1 [facility] DEPARTMEN INC T VISIT MODERATE SEVERITY EMERGENCY 99540 PETE DICKENS 1 1 [facility] HIGH/URGE NT SEVERITY [facility] - 1 1 [facility] OUTPATI[facility] INC T OFFICE 06907 [facility] 1 1 [facility] T VISIT CLINIC OF 25 APRYL MINUTES EMERGENCY 21341 [facility] 1 1 [facility] DEPARTMEN INC T VISIT MODERATE SEVERITY [facility]OSPITAL [facility] - 1 1 [facility] OUTPATIEN INC T EMERGENCY 64163 PETE CESAR 1 1 [facility]ISIT HIGH/URGE NT SEVERITY OFFICE 98952 [place] LEOINENI OUTPATIEN 1 1 MEDICAL SRI T VISIT SERV 25 FOUNDATIO MINUTES EMERGENCY 10781 GARIMA COTTON 1 1 [facility]ICAL [facility] DEPARTMEN SERV T VISIT FOUNDATIO HIGH/URGE NT SEVERITY HOSPITAL [facility] - 1 1 [facility] OUTPATI[facility] INC T EMERGENCY 54361 [facility] 1 1 [facility] LOW/MODER SEVERITY EMERGENCY 14503 PETE DICKENS 1 1 EMERGENCY [facility] DEPARTMEN SERVICES T VISIT HIGH/URGE NT SEVERITY HOSPITAL [facility] - 1 1 [facility] OUTPATIEN [facility] T EMERGENCY 03527 [facility] 1 1 [facility]ISIT HIGH/URGE NT SEVERITY EMERGENCY 82783 PETE NAVARRO DEPT 1 1 EMERGENCY VISIT SERVICES HIGH SEVERITY& THREAT FUNCJ EMERGENCY 51546 [facility] 1 1 [facility] HIGH/URGE NT SEVERITY [facility] - 1 1 [facility] OUTPATIEN INC T OFFICE 60708 [place] GEOVANY PHI OUTPATIEN 1 1 MEDICAL T NEW 30 SERV MINUTES [facility]OUND[facility]I [facility] 81575 PETE DICKENS 1 1 EMERGENCY [facility] DEPARTMEN SERVICES T VISIT HIGH/URGE NT SEVERITY EMERGENCY 35893 [facility]O 1 1 [facility] DEPARTMEN INC T VISIT MODERATE SEVERITY HOSPITAL [facility] - 1 1 [facility] OUTPATIEN INC T EMERGENCY 19039 PETE MARCANO 1 1 EMERGENCY DEV DEPARTMEN SERVICES T VISIT HIGH/URGE NT SEVERITY OFFICE 57044 [facility] PETTEY OUTPATIEN 1 1 PHYSICIAN CHASTITY T VISIT S GROUP 15 MINUTES HOSPITAL [facility] - 1 1 [facility] INC T OFFICE 80373 [facility] PETTEY CONSULTAT 1 1 PHYSICIAN CHASTITY ION S GROUP NEW/ESTAB PATIENT 60 MIN EMERGENCY 55498 PETE FENG DEPT 1 1 EMERGENCY VISIT SERVICES HIGH SEVERITY& THREAT FUN [facility] - 1 1 [facility] OUTPAT[facility] INC T HOSPITAL [facility] - 1 1 [facility] OUTPAT[facility] INC T EMERGENCY 46893 [facility] 1 1 [facility] DEPARTMEN INC T VISIT MODERATE SEVERITY [facility]OSP[facility] - 1 1 [facility] OUTPATIEN INC T EMERGENCY 10022 PETE FENG DEPT 1 1 EMERGENCY VISIT SERVICES HIGH SEVERITY& THREAT [facility] OFFICE 23351 [facility] 1 1 [facility] T VISIT CLINIC OF 25 APRYL MINUTES OFFICE 05117 MYNOR LOWE OUTPATIEN 1 1 LUZ LUZ T VISIT 15 MINUTES PERIODIC 64348 [facility] PREVENTIV 1 1 [facility] E MED EST CLINIC OF PATIENT APRYL 18-39 YRS OFFICE 80993 MYNOR LOWE OUTPATIEN 0 0 LUZ LUZ T VISIT 15 MINUTES EMERGENCY 98391 [facility] 0 0 [facility] DEPARTMEN INC T VISIT LIMITED/M INOR PROB [facility]OSPITAL [facility] - 0 0 [facility] OUTPATIEN INC T EMERGENCY 65858 PETE DICKENS 0 0 EMERGENCY MACARIO DEPARTMEN SERVICES T VISIT HIGH/URGE NT SEVERITY OFFICE 13531 MYNOR LOWE OUTPATIEN 0 0 LUZ LUZ T VISIT 15 MINUTES OFFICE 12454 [facility], CONSULTAT 0 0 [place] MING A ION ORTHOPAED NEW/ESTAB ICS PLC PATIENT 60 MIN OFFICE 63941 MYNOR LOWE OUTPATIEN 0 0 TITO Ramon T VISIT 15 MINUTES OFFICE 36810 MYNOR LOWE OUTPATIEN 0 0 TITO FRANCIS W T VISIT 15 MINUTES [facility]OSPITAL [facility] - 0 0 [facility] OUTPATIEN INC T EMERGENCY 72483 [facility] 0 0 [facility] DEPARTMEN INC T VISIT MODERATE SEVERITY [facility]OSPITAL [facility] - 0 0 [facility] OUTPATIEN [facility] T EMERGENCY 90737 [facility] 0 0 [facility] DEPARTMEN INC T VISIT LIMITED/M INOR PROB EMERGENCY 45499 PETE DICKENS, 0 0 EMERGENCY [facility] SERVICES T VISIT HIGH/URGE ASSOCIATE NT S SEVERITY EMERGENCY 36786 [facility] 0 0 [facility] DEPARTMEN INC T VISIT LIMITED/M INOR PROB [facility]OSPITAL [facility] - 0 0 [facility] OUTPATIEN [facility] T EMERGENCY 88541 PETE DICKENS, 0 0 EMERGENCY [facility] SERVICES T VISIT HIGH/URGE ASSOCIATE NT S SEVERITY OFFICE 97370 ACOSTA CANTU 0 0 S TOO R T VISIT SERVICES 15 PSC MINUTES HOSPITAL [facility] - 0 0 [facility] OUTPATIEN INC T [facility] - 0 0 [facility] OUTPATIEN INC T OFFICE 65221 PHYSICIAN ACOSTA COURTNEY 9 9 S TOO R T VISIT SERVICES 15 PSC MINUTES OFFICE 64477 MYNOR LOWE OUTPATIEN 9 9 TITO Ramon T VISIT 15 MINUTES OFFICE 04473 MYNOR LOWE OUTPATIEN 9 9 TITO Ramon T VISIT 15 MINUTES OFFICE 04606 PHYSICIAN ACOSTA WEBSTER 9 9 Gilbert Ramon T NEW 30 SERVICES MINUTES PSC OFFICE 98458 ACOSTA WADE 9 9 MEDICAL ADDISON Alston T VISIT SERV 10 FOUNDATIO MINUTES HOSPITAL UNIVERSIT - 9 9 Y OUTPATIEN HOSPITAL T OFFICE 68458 MYNOR LOWE OUTPATIEN 9 9 TITO Yenny Ramon T VISIT 15 MINUTES OFFICE 12288 MELLY HUNTLEY 9 9 MEDICAL DEANNA G ION SERV NEW/ESTAB FOUNDATIO PATIENT 40 MIN OFFICE 12245 [facility] 9 [facility]ALTH VLAD Juan T VISIT CLINIC OF 15 MINUTES [facility] - 9 9 [facility] OUTPATIEN INC T OFFICE 70685 ACOSTA AQUINO 9 9 AND MAURICIO CARMINE Marjan T VISIT SURGEONS 15 PSC MINUTES OFFICE 24924 MYNOR LOWE OUTPATIEN 9 9 TITO Ramon TITO Ramon T VISIT 15 MINUTES OFFICE 63771 MYNOR LOWE OUTPATIEN 9 9 TITO Ramon T VISIT 15 MINUTES [facility] - 9 9 [facility] INC T OFFICE 98881 JASON GARCÍAAT 9 9 SANTOSH GARRETT NEW/ESTAB PATIENT 80 MIN OFFICE 35616 MYNOR LOWE OUTPATIEN 9 9 TITO Ramon TITO Ramon T NEW 30 MINUTES OFFICE 84175 COREAS COREAS OUTPATIEN 9 9 Yessica FLOWERS JR, Yessica Dey T VISIT 15 MINUTES OFFICE 39000 [facility] OUT[facility]EN 9 9 HEALTH VLAD J T VISIT CLINIC OF [address] [facility] OFFICE 86156 [facility] OUT[facility] 9 9 HEALTH VLAD J T VISIT CLINIC OF 15 MINUT[facility] - 9 9 [facility] - 9 9 [facility] INC T OFFICE 38116 [facility] OUTPATI[facility] 9 9 HEALTH VLAD J T VISIT CLINIC OF 15 MINUTES [facility] OFFICE 70749 [facility], CONSULTAT 9 9 HEALTH VLAD J ION CLINIC OF NEW/ESTAB PATIENT [place] [address] [facility] EMERGENCY 79043 PETE MATHUR 9 9 EMERGENCY [facility] T VISIT HIGH/URGE ASSOCIATE NT S SEVERITY [facility]OSP[facility] - 9 9 [facility] OUTPAT[facility]EN [facility] T OFFICE 81143 [facility] OUTPATI[facility] 9 9 HEALTH VLAD J T VISIT CLINIC OF 10 MINUTES [facility] - 9 9 [facility] INC T PERIODIC 03725 [facility], PREVENTIV 9 9 HEALTH VLAD J E MED EST CLINIC OF PATIENT 18-39 [facility] 87019 [facility], OUTPATIEN 9 9 HEALTH VLAD J T [facility] [address] [facility] 84937 STEPH MATHUR 9 9 [facility] T VISIT ON MODERATE [facility]VERITY [facility] - 9 9 [facility] OUT[facility] INC T EMERGENCY 71448 [facility] 9 9 [facility] T VISIT LOW/MODER SEVERITY OFFICE 96571 [facility] OUTPATIEN 9 9 HEALTH VLAD J T VISIT CLINIC OF [address] OFFICE 82263 [facility] OUTPATIEN 9 9 HEALTH VLAD J T VISIT CLINIC OF [address] [facility] OFFICE 90839 [facility], OUTPATIEN 8 8 HE[facility] VLAD J T [facility]IT [facility] 14750 JOSS WEINSTEINILLO OUTPATIEN 8 8 Yessica FLOWERS JR, J V T VISIT 15 MINUTES OFFICE 61402 COREAS COREAS OUTPATIEN 8 8 Yessica FLOWERS JR, J V T VISIT 15 MINUTES EMERGENCY 42256 [facility] 8 8 [facility] DEPARTMEN INC T VISIT HIGH/URGE NT SEVERITY [facility] - 8 8 [facility] OUT[facility] INC T OFFICE 32925 [facility], [facility] 8 8 HEALTH VLAD J T VISIT CLINIC OF 15 MINUTES [facility] OFFICE 70438 COREASDELIA WEINSTEINILLO OUTPATIEN 8 8 Yessica FLOWERS JR, J V T VISIT 15 MINUTES [facility] - 8 8 [facility] INC T OFFICE 42928 JOSS WEINSTEINILLO OUTPATIEN 8 8 Yessica FLOWERS JR, J V T VISIT 15 MINUTES OFFICE 81423 [facility], OUT[facility] 8 8 HEALTH VLAD J T V[facility]IT [facility] 00967 [facility] OUTPATIEN 8 8 HEALTH VLAD J T [facility] [facility]ENC[facility] 16164 STEPH NAVARRO, 8 8 [facility] DEPARTMEN CORPORATI T VISIT ON MODERATE SEVERITY EMERGENCY 32157 [facility] 8 8 [facility] DEPART[facility] INC T VISIT LOW/MODER SEVERITY [facility]OSPITAL [facility] - 8 8 [facility] T EMERGENCY 21794 [facility] 8 8 [facility] T VISIT LIMITED/M INOR PROB EMERGENCY 37870 SONIDO PRIYANKA, [address] [facility] EMERGENCY ROOM T VISIT PROF SERV LOW/MODER SEVERITY [facility]OSPITAL [facility] - 8 8 [facility] UNIVERSIT - 8 8 Y [facility] T OFFICE [address]007 [place] MELLY MUNIZ 8 8 [facility] Gamaliel ION SERV NEW/ESTAB FOUNDATIO PATIENT 40 MIN OFFICE 90277 [place] [facility] 8 8 AND HAND CARMINE A T VISIT SURGEONS 10 PSC MINUTES OFFICE 10786 [place] [facility] 8 8 AND HAND CARMINE A T NEW 30 SURGEONS MINUTES PSC OFFICE 87750 [facility]LOE CORONA OUTPATIEN 8 8 BOBBY BOBBY T VISIT 15 MINUTES OFFICE 59146 DEIRDRE GILMORE OUTPATIEN 8 8 ALAN A ALAN A T VISIT 10 MINUTES HOSPITAL S[facility] - 8 8 [facility] T OFFICE 17184 CHLOE CORONA OUTPATIEN 8 8 BOBBY BOBBY T VISIT 25 MINUTES OFFICE 54964 CHLOE CORONA OUTPATIEN 8 8 BOBBY BOBBY T VISIT 15 MINUTES OFFICE 05040 [facility] MONROY 8 8 CHLOE PSC BOBBY T NEW 45 MINUTES EMERGENCY 78873 [facility] 8 8 [facility] HIGH/URGE NT SEVERITY OFFICE 43087 [facility] D[facility] OUTPATIEN 8 8 DON R DON R T VISIT 15 MINUTES [facility]OSPITAL [facility] - [address] [facility] H[facility] OFFICE 05745 [facility]IL DICK OUTPATIEN 8 8 DON R DON R T VISIT 15 MINUTES HOSPITAL [facility] - 8 8 [facility] OUTPATIEN [facility] T OFFICE 52812 KAPIL DICK OUTPATIEN 8 8 DON R DON R T VISIT 15 MINUTES OFFICE 15601 [facility] 8 8 , MICHELLE MARTINEZ ION NEW/ESTAB PATIENT 15 MIN OFFICE 05900 [facility] DICK OUTPATIEN 8 8 DON R DON R T VISIT 15 MINUTES EMERGENCY 98551 SONIDO NAVARRO, 8 8 [facility] T VISIT PROF SERV MODERATE SEVERITY EMERGENCY 27352 SON[facility]O 8 8 [facility] T VISIT HIGH/URGE NT SEVERITY HOSPITAL S[facility] - 8 8 [facility] OFFICE 88317 [facility] 8 8 [facility] J T VISIT CLINIC OF 15 MINUTES [facility] OFFICE 32092 [facility] 8 8 [facility] J T VISIT CLINIC OF 15 MINUT[facility] SONIDO - 8 8 [facility] EMERGENCY 29065 SONIDO 8 8 [facility] T VISIT HIGH/URGE NT SEVERITY OFFICE 07224 [facility]AM[facility] 8 8 [facility] J T VISIT CLINIC OF 15 MINUTES [facility] SONIDO - 8 8 [facility] OFFICE 18334 [facility] 8 8 [facility] J T [facility]ISIT CLINIC OF [address] OFFICE 49888 [facility] [place] 8 8 [facility] [place] VISIT CLINIC OF 15 MINUTES [facility]
--- OUTSIDE RECORDS SUMMARY | 2017-06-05 22:45 | External Medical Summary Rpt | CCD ---
Author Author Conduent Organization Conduent Address Unknown Phone Unavailable Purpose Continuity of Care Document - through 2016
== END 2017-05-26 15:33 | disposition home or self-care (01) ==
LOC: UTC 14:59
DX: J01.00 Acute maxillary sinusitis, unspecified (principal); F17.210 Nicotine dependence, cigarettes, uncomplicated; Z88.2 Allergy status to sulfonamides; Z88.6 Allergy status to analgesic agent; Z88.1 Allergy status to other antibiotic agents; I10 Essential (primary) hypertension; F41.9 Anxiety disorder, unspecified